=== PATIENT | male | born 1970 | race Caucasian/White ===

== ENCOUNTER → 2016-10-18 | Outpatient (CLI) | payer OTHER ==
[~2016-10-18] VITALS: Ht 175.3 cm; Wt 99.5 kg
[~2016-10-18] MED LIST: ALPR0.5T7; ASPI-586 PO; ATOR40TA PO; CEPH500C PO; COLE1TAB; DIAZ5TAB3; DIAZ5TAB3 PO; DULO30CA3 PO; FAMO-119 PO; GABA-488; GABA-488 PO; HYDR-3812 PO; LISI10TA2 PO; METO-310 PO; METO-451 PO; METO50TA2; NITR0.4T; NITR0.4T SL; ONDN4T PO; OXYC-465; PANT40TA2 PO; PANT40TA3; SUCR1TAB36 PO; TEMA30CA
[2016-10-18 11:55] VITALS: BP 139/98
== END ==
LOC: PREOP 11:31
PROVIDERS: ATTEND Podiatrist Foot & Ankle Surgery
DX: Z01.818 Encounter for other preprocedural examination (principal); Z11.2 Encounter for screening for other bacterial diseases; M20.11 Hallux valgus (acquired), right foot
CPT/HCPCS: 87081

== ENCOUNTER 2016-10-26 11:08 | Day surgery (SDC) | payer OTHER ==
--- NOTE | 2016-10-18 14:48 | HISTORY AND PHYSICAL ---
DICTATING PHYSICIAN: Dr. Villegas DATE OF ADMISSION: 10/26/2016 CHIEF COMPLAINT: To have right foot surgery for right bunion - hurts me, by Dr. Bains. The bunion has been getting bigger and bigger. ALLERGIC TO MEDICATIONS: 1. COMPAZINE 2. ANSAID. SURGERIES: 1. The patient has history of one kidney. 2. Appendectomy. 3. Gallbladder. 4. Left knee meniscus. 5. Right nephrectomy. 6. Three stents. 7. Two heart caths. FAMILY HISTORY: Mother and brother diabetes in, mom colon cancer. Dad had heart attack. REVIEW OF SYSTEMS: HEAD: Denies headache, dizziness, fainting. EYES, EARS, NOSE AND THROAT: Denies diplopia, tinnitus, sore throat. RESPIRATORY: Feel much better, getting over a cold. Denies asthma, TB, coughing, congestion, smoking or wheezing. HEART: No heart problems, heart murmurs or chest pain. History of elevated blood pressure and hypertension. GASTROINTESTINAL: Appetite okay. Denies blood in stools, diarrhea, constipation, ulcer, vomiting. GENITOURINARY: Denies blood, pain, frequency. PHYSICAL EXAMINATION: The patient is a white male, well-nourished, well-developed, in no acute respiratory distress at rest. The patient will have surgery a week from Saturday EARS: Not inflamed. EYES: No conjunctivitis or icterus. THROAT: Not inflamed. NECK: Thyroid not enlarged. No abnormal cervical lymphadenopathy noted. HEART: Regular rate and rhythm. LUNGS: Minimal congestion. ABDOMEN: Soft. Liver and spleen nonpalpable. EXTREMITIES: No pretibial edema. Good dorsalis pedis pulses. PLAN: The patient okay to have surgery. We will be on standby if has any problems. Job ID: [id number] Dictated Date: 10/18/2016 14:11:14 Petrophysicist Date: 10/18/2016 14:42:17/eli
[~2016-10-26] VITALS: Ht 175.3 cm; Wt 99.5 kg
[~2016-10-26 11:08] MED LIST changes: -CEPH500C PO; -HYDR-3812 PO
[2016-10-26] MEDS: LACTATED RINGERS 1,000 ML IV PRN ×2 (11:30→13:40)
[2016-10-26] MEDS ORDERED: ceFAZolin 1 GM/NS 50 ML IVPB IV ONE ×2 (11:30)
--- NOTE | 2016-10-26 11:35 | Physical Therapy Progress Note ---
Therapy Progress Note Per patient report, he used crutches last year for another surgery and is knowledgeable with use. PT issued crutches and patient verbally gave PT all the instructions on step negotiation, NWB right LE gait sequence and to not rest weight through axillary region with crutches. RN was present. No skilled PT indicated at this time. 1 visit WILLY SPRINGER PT Oct 26, 2016 11:35
[2016-10-26] MEDS ORDERED: ONDANSETRON 4 MG/2 ML (SDV) Z0FRAN ONE ×2 (11:53→12:04)
[2016-10-26] MEDS ORDERED: FAMOTIDINE 20MG/2ML IV (PEPCID) ONE (11:53)
[2016-10-26] MEDS ORDERED: proPOfol 200 MG/20 ML (DIPRIVAN) VIAL IV ONE (12:04)
[2016-10-26] MEDS ORDERED: MIDAZOLAM 2 MG/2 ML (VERSED) VIAL ONE (12:04)
[2016-10-26] MEDS ORDERED: LACTATED RINGERS 1,000 ML IV ONE ×2 (12:04→13:47)
[2016-10-26] MEDS ORDERED: LIDOCAINE PF 2% 10 ML (XYLOCAINE) AMP ONE (12:04)
[2016-10-26] MEDS ORDERED: LACTATED RINGERS 1,000 ML IV PRN (12:13)
[2016-10-26] MEDS ORDERED: FAMOTIDINE 20MG/2ML IV (PEPCID) IV ONE ×2 (12:15)
[2016-10-26] MEDS ORDERED: ONDANSETRON 4 MG/2 ML (SDV) Z0FRAN IV ONE ×2 (12:15)
[2016-10-26] MEDS ORDERED: SCOPOLAMINE 1.5 MG (TRANSDERM-SCOP) PATCH TOP ONE (12:15)
[2016-10-26 12:25] VITALS: BP 138/101
[2016-10-26] MEDS ORDERED: SUFentanil CITRATE INJ 50MCG/ML 1ML AMP IV ONE (12:28)
--- NOTE | 2016-10-26 12:52 | Progress Note-Pre Operative ---
Pre-Operative Progress Note H&P Reviewed The H&P was reviewed, patient examined and no changes noted. Date H&P Reviewed: Oct 26, 2016 Time H&P Reviewed: 12:51 Pre-Operative Diagnosis: Hallux Valgus right LIA RUSSELL DPM Oct 26, 2016 12:51 pm
[2016-10-26] MEDS ORDERED: BUPIVACAINE 0.5% 30 ML (SENSORCAINE) VIAL ONE (13:12)
[2016-10-26] MEDS ORDERED: DEXAMETHASONE PF 10 MG/ML (DECADRON) VIAL ONE (13:12)
[2016-10-26] MEDS ORDERED: SEVOFLURANE (ULTANE) 15 ML INHAL SOLN ONE (14:10)
--- NOTE | 2016-10-26 14:32 | Progress Note-Post Operative ---
Post-Operative Progess Note Surgeon (s)/Marketing Project Coordinator (s) Surgeon LIA RUSSELL DPM Marketing Project Coordinator: None Pre-Operative Diagnosis Hallux Valgus right Post-Operative Diagnosis Hallux Valgus right Post-Op Procedure Note Date of Procedure: Oct 26, 2016 Name of Procedure Performed: Modified Reese-Milan Bunionectomy, right Description of the Procedure: Correction of Bunion, right Findings of the Procedure Capsulitis right 1st MTPJ, right Anesthesia Type General Estimated blood loss (mL): Minimal Specimen(s) collected/removed None LIA RUSSELL DPM Oct 26, 2016 2:32 pm
[2016-10-26] MEDS ORDERED: CEPH500C PO (14:34)
[2016-10-26] MEDS ORDERED: HYDR-3812 PO (14:34)
--- NOTE | 2016-10-26 14:36 | Discharge Inst-Simple/Standard ---
Discharge Inst-Standard Discharge Medications New, Converted or Re-Newed RX: Call to Patients Pharmacy Patient Instructions/Follow Up Plan of Care/Instructions/FU: Instruction given to patient Activity as Tolerated: No Goal: Return to full activity Discharge Diet: No Restrictions Return to The Hospital For: Excessive pain or bleeding LIA RUSSELL DPM Oct 26, 2016 2:36 pm
[2016-10-26] MEDS ORDERED: LABETALOL HCL 20 MG/4 ML VIAL ONE (14:37)
[2016-10-26] MEDS ORDERED: morphine INJ 10 MG/ML 1ML (SYR OR VIAL) ONE (14:37)
[2016-10-26] MEDS: morphine INJ 10 MG/ML 1ML (SYR OR VIAL) IVP PRN ×2 (14:40→14:48)
[2016-10-26] MEDS: LABETALOL HCL 20 MG/4 ML VIAL IV PRN ×2 (14:42→14:48)
[2016-10-26] MEDS ORDERED: LACTATED RINGERS 1,000 ML IV SCH (14:54)
[2016-10-26] MEDS: HYDROmorphone (DILAUDID) 2 MG/ML VIAL IVP PRN ×2 (14:55→15:05)
[2016-10-26] MEDS ORDERED: HYDROcodone/APAP 5 MG/325 MG (LORTAB) TAB PO PRN (15:00)
[2016-10-26] MEDS ORDERED: ONDANSETRON 4 MG/2 ML (SDV) Z0FRAN IVP PRN ×2 (15:00)
--- NOTE | 2016-10-26 15:16 | Diagnostic Imaging Report ---
INDICATION: Postop right foot followup. Two views of right foot were obtained. No prior studies are available for comparison. FINDINGS: There are changes of prior osteotomy involving the first metatarsal and proximal phalanx of the first digit. There is satisfactory alignment. No unsuspected foreign body is seen. IMPRESSION: Satisfactory postoperative right foot. Dictated by: Dictated on workstation # [id number]
[2016-10-26 15:40] VITALS: BP 136/101
[2016-10-26 16:10] VITALS: BP 153/102
[2016-10-26 16:40] VITALS: BP 142/100
[2016-10-26 16:50] VITALS: BP 142/100
--- NOTE | 2016-10-27 11:56 | OPERATIVE REPORT ---
PROCEDURE PHYSICIAN: LIA RUSSELL DATE OF PROCEDURE: 10/26/2016 SURGEON: Lia Russell DPM. PREOPERATIVE DIAGNOSIS: Hallus abductovalgus metatarsal primus varus, right. POSTOPERATIVE DIAGNOSIS: 1. Hallux abductovalgus, metatarsal primus varus, right. 2. Capsulitis, right first metatarsophalangeal joint. PROCEDURE: Modified Reese Milan bunionectomy, right. WOUND CLASS: Clean. ANESTHESIA: General. HEMOSTASIS: Pneumatic thigh tourniquet at 300 mmHg. INDICATION: This 45-year-old male presents complaining of a painful bunion, right foot. Conservative therapy is met with unsatisfactory results and the patient is agreeable to surgical intervention after risk and complications were discussed at length. No guarantees were extended to the patient and he is willing to proceed. The patient was brought back to the operative table, placed in a secure, supine position. Appropriate timeout was performed. A pneumatic thigh tourniquet was placed on the right lower extremity over several layers of padding. The right foot was then prepped and draped in normal sterile manner. The right leg was then elevated, allowed to exsanguinate after which the tourniquet was inflated to 300 mmHg. Attention was then directed to the dorsal aspect of the right first metatarsophalangeal joint where a 6 cm longitudinal linear incision was created. The incision was deepened in the same plane with great care to identify and retract all vital neurovascular structures. Only necessary blood vessels were cauterized as an revenue accountant. The incision was deepened down to capsule where a longitude capsulotomy was performed. On the underside of the capsule, tissue with some granular tissue villi was noted. This was debrided with a dissecting scissor. When the capsular tissue was reflected this demonstrating a hypertrophic medial eminence of the 1st metatarsal head, which was resected utilizing a power sagittal saw. Next, blunt dissection was carried out into the first intermetatarsal space where a lateral release was performed. The conjoined tendon of the adductor hallucis was released as well as a lateral capsulorrhaphy and release of the fibular sesamoidal ligament. Attention was redirected to the medial aspect of the first metatarsal head where a Chevron type osteotomy was performed at the surgical neck. The capital fragment was translocated from medial to lateral and was fixated in its corrected position utilizing a 0.062 threaded K wire driven from proximal, dorsal to plantar distal across the osteotomy with great care not to penetrate the articular cartilage. The wound was flushed with copious amounts of normal saline. The K wire was cut flush with the dorsal aspect of the first metatarsal. The head of the first metatarsal was further contoured and smoothed with a power sagittal saw and power bur. Attention was then directed to the proximal phalanx of the right hallux where an Milan type osteotomy was performed. The wedge of bone was resected with the base medial and lateral cortices left intact. Two pilot fuel engineer holes were created to the dorsal medial aspect of the osteotomy after the wedge of bone was resected, the gap was closed and correcting the misalignment of the right hallux. The osteotomy was closed in a corrected position with a 28-gauge monofilament wire passing through the pilot fuel engineer hole securing the osteotomy closed. The wound was flushed with copious amounts of normal saline and closure was then performed in layers; deep closure was performed with 3-0 Vicryl, superficial with 4-0 Vicryl, skin closure with 4-0 Prolene in a horizontal mattress type stitch. Postoperative injection consisted of 17 mL of 0.5% Marcaine injected in a local infusion to the surgical sites. Also 10 mg dexamethasone into the first intermetatarsal space adjacent to the metatarsal phalangeal joint. Postoperative dressing consisted of Betadine soaked Adaptic, sterile 4 x 4, sterile Kerlix, all secured with a Coban wrap. The patient tolerated the anesthesia and procedure well and was transported from the operating room to the recovery area with vital with vital signs stable and vascular status intact to all digits of the right foot. He was given postoperative prescription for Keflex and Vicodin as well as postoperative instructions to be nonweightbearing on the right foot with crutches. Will see the patient back in the office on 11/05/2016 at 10:30 a.m. Job ID: [id number] Dictated Date: 10/26/2016 14:44:10 Complaint Inspector Date: 10/27/2016 11:43:43 / eli
--- OUTSIDE RECORDS SUMMARY | 2016-11-29 21:53 | XMS REPORT | Continuity of Care Document ---
Author Author [facility] Organization [facility] Address Unknown Phone Unavailable Allergies Active Description Code Type Severity Reaction Onset Reported/Identified Relationship to Patient Clinical Status Yes ropinirole [id number] Drug Allergy Unknown N/A 03/16/2015 Yes droperidol [id number] Drug Allergy Moderate HYPERACTIVITY, 10/18/2016 Yes NSAIDS (Non-Steroidal Anti-Inflamma [id number] Drug Allergy Moderate KIDNEY FUNCTION 10/18/2016 Yes fentanyl [id number] Drug Allergy Unknown N/A 10/18/2016 Yes prochlorperazine [id number] Drug Allergy Unknown N/A 10/18/2016 Medications Problems Date Dx Coded Attending Type Code Diagnosis Diagnosed By 03/16/2015 LUIS DENISE, AGATHA Vargas Ot 789.09 ABDOMINAL PAIN, OTHER SPECIFIED SITE 03/26/2015 DAISY ARIZA APRN Ot 724.2 LUMBAGO 03/26/2015 DAISY ARIZA INSTRUCTOR [employer] TROLLEY [employer]AXI Ot 789.09 ABDOMINAL PAIN, OTHER SPECIFIED SITE 03/26/2015 DAISY ARIZA INSTRUCTOR [employer] Ot V58.69 OTH MED,LT,CURRENT USE 08/28/2015 EDGAR DENISE, SABRINA Barreto Ot F17.211 NICOTINE DEPENDENCE, CIGARETTES, IN [place] 08/28/2015 EDGAR DENISE, SABRINA Barreto Ot I25.10 ATHSCL HEART DISEASE OF [place] CORONARY 08/28/2015 EDGAR DENISE, SABRINA Barreto Ot K20.9 ESOPHAGITIS, UNSPECIFIED 08/28/2015 SABRINA HERNÁNDEZ MD Ot R07.9 CHEST PAIN, UNSPECIFIED 08/28/2015 EDGAR DENISE, SABRINA Barreto Ot Z90.5 ACQUIRED ABSENCE OF KIDNEY 08/28/2015 EDGAR DENISE, SABRINA Barreto Ot Z98.61 CORONARY ANGIOPLASTY STATUS 10/19/2016 YVONNE MERCADO, LIA Joshi Ot M20.11 HALLUX VALGUS (ACQUIRED), RIGHT FOOT 10/19/2016 YVONNE DPM, LIA Q Ot Z01.818 ENCOUNTER FOR OTHER PREPROCEDURAL EXAMIN 10/19/2016 YVONNE DPM, LIA Q Ot Z11.2 ENCOUNTER FOR SCREENING FOR OTHER BACTER 10/26/2016 YVONNE DPM, LIA Q Ot M20.11 HALLUX VALGUS (ACQUIRED), RIGHT FOOT 10/26/2016 YVONNE DPM, LIA Q Ot Z01.818 ENCOUNTER FOR OTHER PREPROCEDURAL EXAMIN 10/26/2016 YVONNE DPM, LIA Q Ot Z11.2 ENCOUNTER FOR SCREENING FOR OTHER BACTER 10/31/2016 YVONNE DPM, LIA Q Ot M20.11 HALLUX VALGUS (ACQUIRED), RIGHT FOOT 10/31/2016 YVONNE DPM, LIA Q Ot M77.41 METATARSALGIA, RIGHT FOOT Procedures Results Test Result Range Methicillin resistant Staphylococcus aureus (MRSA) screening culture - 12:10 MRSA SCREEN RESULT MRSA ISOLATED NRG Encounters ACCT No. Visit Date/Time Discharge Status Pt. Type Provider Facility Loc./Unit Complaint [id number] 10/26/2016 11:08:00 2016 16:50:00 DIS Outpatient YVONNE DPM, LIA Q [facility] RIGHT HALLUX [id number] 08/28/2015 02:52:00 2015 07:46:00 DIS Emergency EDGAR DENISE, SABRINA Barreto [facility] ER CP [id number] 03/26/2015 18:19:00 2014 20:12:00 DIS Emergency DAISY ARIZA APRN [facility] ER FALL/LFT KIDNEY PAIN/PAIN URIN [id number] 03/16/2015 20:20:00 2014 23:17:00 DIS Emergency LUIS DENISE, AGATHA Vargas [facility] ER L FLANK PAIN [id number] 10/18/2016 11:31:00 ACT Outpatient YVONNE DPM, LIA Q [facility] PREOP RIGHT HALLUX
--- OUTSIDE RECORDS SUMMARY | 2016-11-29 21:53 | XMS REPORT | Continuity of Care Document ---
Author Author [facility] Organization [facility] Address Unknown Phone Unavailable Care Team Providers Care Plumbing Inspector Name Role Phone Self, Referral PCP Unavailable Source Comments Some departments are not documenting in the electronic medical record. If you do not see the information that you expected, contact Release of Information in the Health Information Management department at [phone] for further assistance in locating additional records.[facility] Active Allergies and Adverse Reactions Allergen Noted Date Severity Reactions Comments Droperidol 03/15/2011 SEE COMMENTS "makes me wired" Current Medications Prescription Sig. Disp. Refills Start End Date Status Date tadalafil(+) (CIALIS, Take 20 mg by mouth as Active ADCIRCA) 20 mg tablet Needed. DULoxetine DR (CYMBALTA) Take 60 mg by mouth Active 60 mg capsule daily. pantoprazole DR Take 40 mg by mouth twice Active (PROTONIX) 40 mg tablet daily. nebivolol (BYSTOLIC) 10 Take 10 mg by mouth Active mg tablet daily. Acetaminophen-Caffeine Take 2 Tabs by mouth Active (EXCEDRIN TENSION daily as needed. HEADACHE) 500-65 mg Tab oxyCODone-acetaminophen Take 2 Tabs by mouth Active (PERCOCET; ENDOCET; every 6 hours as needed ROXICET) 5-325 mg tablet Max 12 tabs/day Active Problems Problem Noted Date Tobacco use disorder 11/20/2012 Chest pain 11/20/2012 Overview: 11/20/12: Normal regadenosine thallium Abdominal pain 11/20/2012 GERD (gastroesophageal reflux disease) 11/20/2012 History of nephrectomy, unilateral 11/20/2012 Recurrent pancreatitis (HCC) 11/20/2012 HTN (hypertension) 06/18/2012 Weight loss, abnormal 06/18/2012 Narcolepsy 06/18/2012 Right flank pain 05/05/2012 Overview: History of bilateral UPJO s/p open pyeloplasties in 1981. Recurrent right flank pain followed with serial NM renal scans and CT's. Stable diminished right renal function (24%). Underwent cystoscopy with right ureteroscopy on 03/16/11 with widely patent UPJ noted. Had nephrostomy tube placed which improved his pain. Had nephrectomy for pain on 07/01/12. 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 Last Assessment & Plan: Patient doing well except for periumbilical pain. He did do a bunch of lifting around the time of his pain onset. No hernia or hematoma. Mild discomfort. -- limit activities and lifting -- Percocet Rx given to patient -- F/U 3 weeks for symptom check -- if symptoms persist, he may need imaging with CT scan Immunizations Name Dates Previously Given Next Due FLU VACCINE >3YO 05/20/2012 (Preservative Free) Social History Tobacco Use Types Packs/Day Years Used Date Current Every Day Smoker Cigarettes 0.5 6 Smokeless Tobacco: Never Used Comments: down to 1/2 pack daily from 1 pack daily Alcohol Use Drinks/Week oz/Week Comments No rarely Last Filed Vital Signs Vital Sign Reading Time Taken Blood Pressure 145/101 03/18/2013 11:30 PM CDT Pulse 80 03/18/2013 3:37 PM CDT Temperature 36.9 C (98.4 F) 03/18/2013 3:37 PM CDT Respiratory Rate 14 08/20/2011 10:54 PM SURGERY ASSISTANT Height 1.778 m (5' 10") 11/20/2012 8:02 AM CDT Weight 93.7 kg (206 lb 9.1 oz) 03/18/2013 3:37 PM CDT Body Mass Index 29.64 03/18/2013 3:37 PM CDT Oxygen Saturation 97% 03/18/2013 11:30 PM CDT Plan of Care Health Maintenance Due Date Last Done Comments Physical (Comprehensive) 1977 Exam Pertussis Vaccine 1981 Tetanus Vaccine 12/04/1987 Influenza Vaccine 03/22/2017 05/20/2012 Results from Last 3 Months Not on file
== END 2016-10-26 16:50 | disposition home or self-care (01) ==
LOC: SDC 11:08
PROVIDERS: ATTEND Podiatrist Foot & Ankle Surgery
DX: M20.11 Hallux valgus (acquired), right foot (principal); M77.41 Metatarsalgia, right foot
CPT/HCPCS: 73620

== ENCOUNTER 2017-06-19 09:05 | Outpatient (CLI) | payer OTHER ==
[~2017-06-19] VITALS: Ht 175.3 cm; Wt 101.7 kg
[~2017-06-19 09:05] MED LIST changes: +CEPH500C PO; +HYDR-3812 PO
[2017-06-19] MEDS ORDERED: ALLO300T2 PO (09:21)
[2017-06-19] MEDS ORDERED: OMEP20TA7 PO (09:21)
[2017-06-19] MEDS ORDERED: LIPA1CAP2 PO (09:21)
[2017-06-19 09:23] VITALS: BP 131/98
== END 2017-06-19 10:08 | disposition home or self-care (01) ==
LOC: PREOP 09:05
PROVIDERS: ATTEND Podiatrist Foot & Ankle Surgery
DX: Z01.818 Encounter for other preprocedural examination (principal); Z11.2 Encounter for screening for other bacterial diseases; M20.12 Hallux valgus (acquired), left foot
CPT/HCPCS: 87081

== ENCOUNTER 2017-07-01 09:19 | Day surgery (SDC) | payer OTHER ==
[~2017-07-01] VITALS: Ht 175.3 cm; Wt 101.7 kg
[2017-07-01 09:18] VITALS: BP 124/102
[~2017-07-01 09:19] MED LIST changes: +ALLO300T2 PO; +LIPA1CAP2 PO; +METO50TA15; -METO50TA2; +OMEP20TA7 PO
[2017-07-01] MEDS ORDERED: BUPIVACAINE 0.5% 30 ML (SENSORCAINE) VIAL ONE (09:21)
[2017-07-01] MEDS ORDERED: DEXAMETHASONE 10 MG/ML (DECADRON) 1 ML VIAL ONE ×2 (09:21→10:28)
--- NOTE | 2017-07-01 09:35 | Progress Note-Pre Operative ---
Pre-Operative Progress Note H&P Reviewed The H&P was reviewed, patient examined and no changes noted. Date Seen by Provider: Jul 01, 2017 Time Seen by Provider: 09:34 Date H&P Reviewed: Jul 01, 2017 Time H&P Reviewed: 09:34 Pre-Operative Diagnosis: Hallux Valgus left ILA RUSSELL DPM Jul 01, 2017 9:34 am
[2017-07-01] MEDS ORDERED: NS (IVPB) 50 ML ONE (09:41)
[2017-07-01] MEDS ORDERED: ceFAZolin 1,000 MG (ANCEF) VIAL ONE (09:41)
[2017-07-01] MEDS ORDERED: ceFAZolin 1 GM/NS 50 ML IVPB IV ONE ×2 (09:45)
[2017-07-01] MEDS ORDERED: CATHETER FLUSH 10 ML SYR IV PRN (09:45)
[2017-07-01] MEDS: LACTATED RINGERS 1,000 ML IV PRN ×2 (09:45→10:36)
[2017-07-01] MEDS ORDERED: MIDAZOLAM 2 MG/2 ML (VERSED) VIAL ONE (09:56)
[2017-07-01] MEDS ORDERED: fentaNYL INJECTION 100 MCG/2 ML AMP ONE (09:56)
[2017-07-01] MEDS ORDERED: FAMOTIDINE 20MG/2ML IV (PEPCID) IV ONE (10:00)
[2017-07-01] MEDS ORDERED: LIDOCAINE PF 2% 5 ML (XYLOCAINE) VIAL ONE (10:28)
[2017-07-01] MEDS ORDERED: ESMOLOL 100 MG/10 ML (BREVIBLOC) VIAL ONE (10:28)
[2017-07-01] MEDS ORDERED: proPOfol 200 MG/20 ML (DIPRIVAN) VIAL IV ONE (10:28)
[2017-07-01] MEDS ORDERED: SEVOFLURANE (ULTANE) 15 ML INHAL SOLN ONE (10:28)
[2017-07-01] MEDS ORDERED: ONDANSETRON 4 MG/2 ML (SDV) Z0FRAN ONE (10:28)
[2017-07-01] MEDS ORDERED: LACTATED RINGERS 1,000 ML IV SCH (11:13)
--- NOTE | 2017-07-01 11:13 | Progress Note-Post Operative ---
Post-Operative Progess Note Surgeon (s)/Dialysis Rn (s) Surgeon LIA RUSSELL DPM Dialysis Rn: none Pre-Operative Diagnosis Hallux Valgus left Post-Operative Diagnosis Same Procedure & Operative Findings Date of Procedure 07/01/17 Procedure Performed/Findings Reese-Milan type bunionectomy, left Anesthesia Type General Estimated Blood Loss Estimated blood loss (mL): Minimal Specimens/Packing Specimens Removed None LIA RUSSELL DPM Jul 01, 2017 11:13 am
[2017-07-01] MEDS ORDERED: HYDROcodone/APAP 5 MG/325 MG (LORTAB) TAB PO PRN (11:15)
[2017-07-01] MEDS ORDERED: HYDR-3812 PO (11:16)
[2017-07-01] MEDS ORDERED: CEPH500C PO (11:16)
[2017-07-01] MEDS: morphine INJ 10 MG/ML 1ML (SYR OR VIAL) IVP PRN ×2 (11:30→11:38)
[2017-07-01] MEDS ORDERED: ONDANSETRON 4 MG/2 ML (SDV) Z0FRAN IVP PRN (11:30)
[2017-07-01 12:10] VITALS: BP 128/95
[2017-07-01 12:40] VITALS: BP 135/100
[2017-07-01 13:10] VITALS: BP 120/93
[2017-07-01 13:18] VITALS: BP 120/93
--- NOTE | 2017-07-01 14:12 | Diagnostic Imaging Report ---
INDICATION: Postop foot surgery. COMPARISON: None. FINDINGS: Frontal and lateral radiographic views of the left foot were obtained. Postsurgical changes of recent hallux valgus deformity correction surgery are noted. Osteotomy defect of the distal first talus is noted. Metallic pin is present. Postsurgical changes of the first proximal phalanx are also noted. No unexpected radiopaque foreign bodies are seen. There is soft tissue swelling and soft tissue emphysema. No unexpected acute osseous fracture or dislocation is identified. IMPRESSION: Postsurgical changes of the left foot as described above. No unexpected radiopaque foreign bodies are seen. Dictated by: Dictated on workstation # [id number]
--- NOTE | 2017-07-01 15:01 | OPERATIVE REPORT ---
DATE OF SERVICE: SURGEON: Keerthi Bains DPM. PREOPERATIVE DIAGNOSES: Hallux abductovalgus with metatarsal primus varus, left. POSTOPERATIVE DIAGNOSES: Hallux abductovalgus with metatarsal primus varus, left. PROCEDURE: Modified Reese-Milan bunionectomy, left. WOUND CLASS: Clean. ANESTHESIA: General. HEMOSTASIS: Pneumatic thigh tourniquet at 300 mmHg. INDICATION: This 46-year-old male presents complaining of a painful bunion, left foot. Conservative therapy has met with unsatisfactory results and the patient is agreeable to surgical intervention after risks and complications were discussed at length. No guarantees were extended to the patient. Perioperative course was discussed at length and he is willing to proceed. PROCEDURE: The patient was brought back to the operative table, placed in a secure supine position. Appropriate timeout was performed. General anesthetic was then induced. Pneumatic thigh tourniquet was placed in the left lower extremity over several layers of padding. The left foot was then prepped and draped in the normal sterile manner. The left foot was then elevated and allowed to exsanguinate after which the tourniquet was inflated to 300 mmHg. Attention was then directed to the dorsal aspect of the left first metatarsophalangeal joint where a 6 cm longitudinal linear incision was created. The incision was deepened in same plane with great care to identify and retract all vital neurovascular structures. All necessary blood vessels were cauterized as encountered. The incision was deepened down to the capsular tissue where a longitudinal capsulotomy was performed. The capsule tissue was reflected mediolaterally exposing the hypertrophic medial eminence to the first metatarsal head, which was resected utilizing a power sagittal saw. Blunt dissection was carried out to the lateral aspect of the left first metatarsophalangeal joint where a lateral release was performed. This included the release of the conjoint tendon of the adductor hallucis, a lateral capsulorrhaphy as well as a release of the fibular sesamoid ligament. The hallux was then forcibly adducted releasing any additional fibers holding it in its abnormal position. Attention was redirected to the medial aspect of the first metatarsal head where a Chevron-type osteotomy was performed allowing the capital fragment to translocate laterally and was fixated in its corrected position with a 0.062 threaded K-wire driven from dorsal proximal to plantar distal with great care not to penetrate the articular cartilage. Excellent bony apposition and fixation was appreciated at this time. The K-wire was cut flush with the dorsal aspect of the first metatarsal. The head of the first metatarsal was further contoured and smoothed with power sagittal saw and power bur. Attention was then directed to the diaphysis of the left hallux proximal phalanx where subperiosteal dissection was carried out. A wedge of bone was then resected with a power sagittal saw with the lateral cortices held intact and the base medial. This allowed improved alignment of the digit once the wedge was removed to close the angulation of the left hallux. Two jet pilot holes were created at the dorsal medial aspect of the osteotomy allowing a 28-gauge monofilament wire to pass through these jet pilot holes securing the osteotomy in a closed position. The wound was flushed with copious amounts of normal saline throughout the procedure. Excellent bony apposition and alignment was now appreciated as well as excellent range of motion of the left first metatarsophalangeal joint without crepitation. The wound was flushed with copious amounts of normal saline and closure was then performed in layers. Deep closure was performed with 3-0 Vicryl, superficial with 4-0 Vicryl, skin closure with 4-0 Prolene in a horizontal mattress type stitch. A postoperative injection consisted of 20 mL of 0.5% Marcaine injected in a Card block. The injection also included 10 mg dexamethasone to the first metatarsophalangeal joint area. Postoperative dressing consisted of Betadine soaked Adaptic, sterile 4 x 4, sterile Kerlix all secured with a Coban wrap. The patient tolerated the anesthesia and procedure well, was transported from the operating room to the recovery area with vital signs stable and vascular status intact to all digits of the left foot. Postoperative instructions were dispensed to the patient as well as prescription for Keflex and Vicodin. He is to be nonweightbearing on the left foot. This will extend for approximately 4 weeks period time. We will see him in the office in 10 days or sooner if necessary. Job ID: [id number] DocumentID: [id number] Dictated Date: 07/01/2017 11:22:28 Final Block Press Operator Date: 07/01/2017 15:00:40 Dictated By: ROGELIO JENKINS
== END 2017-07-01 13:18 | disposition home or self-care (01) ==
LOC: SDC 09:19
PROVIDERS: ATTEND Podiatrist Foot & Ankle Surgery
DX: M20.12 Hallux valgus (acquired), left foot (principal); I10 Essential (primary) hypertension; I25.10 Atherosclerotic heart disease of native coronary artery without angina pectoris; E78.5 Hyperlipidemia, unspecified; G47.33 Obstructive sleep apnea (adult) (pediatric); Z86.73 Personal history of transient ischemic attack (TIA), and cerebral infarction without residual deficits; K21.9 Gastro-esophageal reflux disease without esophagitis; Z90.5 Acquired absence of kidney; Z79.899 Other long term (current) drug therapy; Z79.82 Long term (current) use of aspirin; Z88.6 Allergy status to analgesic agent; Z88.5 Allergy status to narcotic agent; Z88.8 Allergy status to other drugs, medicaments and biological substances
CPT/HCPCS: 73620

== ENCOUNTER → 2018-10-24 | Outpatient (CLI) | payer BC ==
[~2018-10-24] MED LIST changes: +ACHD5005 PO; -HYDR-3812 PO
--- NOTE | 2018-10-24 11:54 | Diagnostic Imaging Report ---
INDICATION: Right forearm injury. TIME OF EXAM: 11:39 a.m. FINDINGS: Two views of the right forearm were obtained. Alignment at the elbow and wrist appears normal. The radius and ulna appear intact. No fractures are seen. The soft tissues are unremarkable. IMPRESSION: No acute bony abnormality is detected. Dictated by: Dictated on workstation # [id number]
--- NOTE | 2018-10-24 11:58 | Diagnostic Imaging Report ---
INDICATION: Right wrist injury. TIME OF EXAM: 11:40 a.m. FINDINGS: Three views of the right wrist were obtained. Distal radius and ulna are intact. Carpus appears intact. No fracture is seen. Visualized metacarpals are unremarkable. IMPRESSION: No acute bony abnormality is detected. Dictated by: Dictated on workstation # [id number]
== END ==
LOC: RAD FS 11:17
PROVIDERS: ATTEND Nurse Practitioner Family
DX: S69.91XA Unspecified injury of right wrist, hand and finger(s), initial encounter (principal); S59.911A Unspecified injury of right forearm, initial encounter
CPT/HCPCS: 73090; 73110

== ENCOUNTER 2018-10-27 17:10 | Emergency (ER) | payer BC ==
[~2018-10-27] VITALS: Ht 175.3 cm; Wt 78.5 kg
--- OUTSIDE RECORDS SUMMARY | 2018-10-27 17:19 | XMS REPORT ---
Author Author [facility]ZA [facility] [place] [facility] Address [address] [place] [address] Care Team Providers Care Eligibility Consultant Name Role Phone CAREY CARRANZA Unavailable PROBLEMS Type Condition ICD9-CM Code [id number] Code Onset Dates Condition Status SNOMED Code Problem Non-STEMI (non-ST elevated myocardial infarction) 410.70 Mar, 0 12624041 Problem Nausea with vomiting R11.2 16 Dec, 2011 0 10442300 Problem Hydronephrosis, left 591 Oct, 0 27905330 Problem Testosterone deficiency 259.9 17 Aug, 2014 0 20791872 Problem Acute pancreatitis K85.90 Oct, 0 157897621 Problem Acute pancreatitis, unspecified complication status, unspecified pancreatitis type K85.90 Active 467428175 Problem Sprain of medial collateral ligament of left knee S83.412A Oct 0 85320220 Problem Single kidney Z90.5 Active 161162204 Problem Sprain of medial collateral ligament of left knee 844.1 Oct, 0 05361343 Problem Sprain of tibiofibular ligament of left ankle S93.432A Oct, 0 44390151499327201 Problem Sprain of tibiofibular ligament of left ankle 845.03 Oct, 0 55977643655736033 Problem Recurrent pancreatitis K86.1 May, 0 621989471 Problem Recurrent pancreatitis 577.1 May, 0 294151147 Problem Right upper quadrant pain 789.01 Dec, 0 051834673 Problem Left flank pain 789.09 Feb, 0 373303395 Problem Kidney stones 592.0 16 Dec, 2011 0 58874742 Problem Nephrolithiasis 592.0 Oct, 0 02125939 Problem Tobacco use 305.1 Jun, 0 098365996 Problem Chest pain 786.50 Aug, 0 30509915 Problem Bunion, left foot M21.612 Jun, 0 821822851 Problem Testosterone deficiency E34.9 17 Aug, 2014 0 97562000 Problem Hyperventilation R06.4 Aug, 0 53983266 Problem Right upper quadrant pain R10.11 Dec, 0 538168826 Problem Hallux rigidus, right foot M20.21 November, 0 2606886 Problem Fever 780.60 16 Dec, 2011 0 607378167 Problem Nausea with vomiting 787.01 Dec, 0 24244102 Problem Abdominal pain, epigastric 789.06 Aug, 0 78079889 Problem Acute pancreatitis 577.0 Oct, 0 176557840 Problem Hyperventilation 786.01 Aug, 0 45793233 Problem Hydronephrosis, left N13.30 Oct, 0 58907694 Problem Non-STEMI (non-ST elevated myocardial infarction) I21.4 Mar, 0 317275872 Problem URI (upper respiratory infection) 465.9 Sep, 0 95446686 Problem HTN (hypertension) 401.9 Feb, 0 73250033 Problem GERD (gastroesophageal reflux disease) 530.81 10 Jan, 2015 0 936020518 Problem Anxiety 300.00 Feb, 0 16396258 Problem Chest pain R07.9 Aug, 0 75039561 Problem URI (upper respiratory infection) J06.9 Sep, 0 28527799 Problem GERD (gastroesophageal reflux disease) K21.9 10 Jan, 2015 0 340687859 Problem HTN (hypertension) I10 Feb, 0 03582531 Problem Tobacco use Z72.0 Jun, 0 168543679 Problem Old complete tear of anterior cruciate ligament of left knee M23.52 Oct, 0 Problem Anxiety F41.9 Feb, 0 72133207 Problem Old complete tear of anterior cruciate ligament of left knee 717.83 Oct, 0 799116143 Problem History of [place] (myocardial infarction) I25.2 Active 560357025 Problem Sprain of lateral collateral ligament of left knee S83.422A Oct, 0 00781750 Problem Generalized abdominal pain R10.84 Active 286178814 Problem Sprain of lateral collateral ligament of left knee 844.0 Oct, 0 40640764 Problem Essential hypertension I10 Active 49760293 Problem Nephrolithiasis N20.0 Active 84656925 Problem Urinary frequency R35.0 Active 598175486 Problem Dizziness R42 Active 668271403 Problem Abdominal pain, epigastric R10.13 Aug, 0 34445125 Problem Status post myocardial infarction I25.2 05 Jun, 2017 0 2713951 Problem Dizziness R42 Active 247725862 Problem Left flank pain R10.9 05 Feb, 2013 0 135979707 Problem Fever R50.9 16 Dec, 2011 0 345728767 Problem Bunion, left foot 727.1 05 Jun, 2017 0 598983801 Problem Kidney stones N20.0 16 Dec, 2011 0 75985157 Problem Hallux rigidus, right foot 735.2 November, 0 6455863 Problem Urinary urgency R39.15 Active 56078145 Problem TFCC (triangular fibrocartilage complex) injury 718.03 Jan, 0 548456503 Problem Weight loss R63.4 Active 26322454 Problem Status post myocardial infarction 412 05 Jun, 2017 0 8162011 Problem Fluid level behind tympanic membrane of both ears H65.93 Active 700665007 Problem Chronic fatigue R53.82 Active 53304776 Problem TFCC (triangular fibrocartilage complex) injury S69.80XA Jan, 0 ALLERGIES No Information ENCOUNTERS Encounter Location Date [facility] [address] [address] 16 Sep, 2018 [facility] [address] [address] 14 Sep, 2018 [facility] [address] [address] Sep, [facility] [address] [address] Sep, [facility] [address] [address] Sep, [facility] [address] [address] Sep, [facility] [address] [address] Sep, [facility] [address] [address] Aug, [facility] [address] [address] Aug, Dizziness R42 ; Urinary urgency R39.15 ; Chronic fatigue R53.82 ; Fluid level behind tympanic membrane of both ears H65.93 ; Weight loss R63.4 and Urinary frequency R35.0 [facility] [address] [address] Aug, [address] [address] Aug, [address] [address] Aug, Dysuria R30.0 ; Dehydration E86.0 ; Diarrhea, unspecified type R19.7 ; Acute prostatitis N41.0 and Non-intractable vomiting with nausea, unspecified vomiting type R11.2 [facility] [address] [address] Aug, [address] [address] Aug, [facility] [address] [facility] [id number] [place] [address] Aug, [address] [address] Aug, Thyroid disorder E07.9 ; Nausea R11.0 and Tremor R25.1 [facility] [address] [address] Aug, [address] [address] Aug, [address] [address] Aug, Low TSH level R79.89 and Contusion of right clavicle, initial encounter S40.011A [facility] [address] [address] 04 Aug, 2018 [facility] [address] [place] [address] Aug, [facility] [id number] [address] Jul, [facility] [address] [address] Jul, [facility] [address] [address] Jun, [facility] [address] [place] [address] Jun, [facility] [address] [address] Jun, [facility] [address] [address] Jun, [facility] [address] [address] Jun, [facility] [address] [address] Jun, [facility] [address] [address] Jun, [facility] [address] [address] Jun, [facility] [id number] [address] May, IMMUNIZATIONS No Known Immunizations SOCIAL HISTORY Never Assessed REASON FOR VISIT headache PLAN OF CARE VITAL SIGNS MEDICATIONS Unknown Medications RESULTS No Results PROCEDURES No Known procedures INSTRUCTIONS MEDICATIONS ADMINISTERED No Known Medications MEDICAL (GENERAL) HISTORY Type Description Date Medical History Hydronephrosis, left Medical History Testosterone Deficiency Medical History GERD Medical History hypertension Medical History anxiety Medical History nephrolithiasis, left Medical History pancreatitis Medical History Non-STEMI Surgical History colonoscopy 02/10/2015, 03/16/2015 Surgical History EGD 2017 Surgical History right nephrectomy Surgical History cholecystectomy
--- OUTSIDE RECORDS SUMMARY | 2018-10-27 17:19 | XMS REPORT | Clinical Summary ---
Author Author [facility] Organization [facility] Address Unknown Phone Unavailable Care Team Providers Care Die Cast Engineer Name Role Phone PCP Unavailable Allergies Not on File Current Medications Not on file Active Problems Not on file Social History Tobacco Use Types Packs/Day Years Used Date Never Assessed Sex Assigned at Date Recorded Not on file Last Filed Vital Signs Not on file Plan of Treatment Not on file Results Not on filefrom Last 3 Months
--- OUTSIDE RECORDS SUMMARY | 2018-10-27 17:19 | XMS REPORT | Clinical Summary ---
Author Author [facility] Organization [facility] Address Unknown Phone Unavailable Care Team Providers Care Retail Advertising Account Executive Name Role Phone Maco Snider MD Unavailable Virgilio Alaniz MD Unavailable Toshia Cheng RN Unavailable Unavailable Chanel Lanza RN Unavailable Unavailable Ivana Sanchez RN Unavailable Unavailable Dada Bob MD Unavailable Unavailable Verona Corea RN Unavailable Unavailable Reji Ferris MD Unavailable Alden Romero PA-C Unavailable Self, Referral PCP Unavailable Charmaine Bowen MD Unavailable Shorty Adler RN Unavailable Unavailable Source Comments Some departments are not documenting in the electronic medical record. If you do not see the information that you expected, contact Release of Information in the Health Information Management department at [phone] for further assistance in locating additional records.[facility] Allergies Comments Active Allergy Reactions Severity Noted Date "makes me wired" Droperidol SEE COMMENTS 03/15/2011 Medications End Date Status Medication Sig Dispensed Refills Start Date Active tadalafil(+) (CIALIS, Take 20 mg by 0 ADCIRCA) 20 mg tablet mouth as Needed. Active DULoxetine DR (CYMBALTA) Take 60 mg by 0 60 mg capsule mouth daily. Active pantoprazole DR Take 40 mg by 0 (PROTONIX) 40 mg tablet mouth twice daily. Active nebivolol (BYSTOLIC) 10 Take 10 mg by 0 mg tablet mouth daily. Active Acetaminophen-Caffeine Take 2 Tabs 0 (EXCEDRIN TENSION by mouth HEADACHE) 500-65 mg Tab daily as needed. Active oxyCODone-acetaminophen Take 2 Tabs 0 (PERCOCET; ENDOCET; by mouth ROXICET) 5-325 mg tablet every 6 hours as needed Max 12 tabs/day Active Problems Problem Noted Date Tobacco use disorder 11/20/2012 Chest pain 11/20/2012 Overview: 11/20/12: Normal regadenosine thallium Abdominal pain 11/20/2012 GERD (gastroesophageal reflux disease) 11/20/2012 History of nephrectomy, unilateral 11/20/2012 Recurrent pancreatitis 11/20/2012 HTN (hypertension) 06/18/2012 Weight loss, abnormal [...] Due FLU VACCINE >3YO 05/20/2012 (Preservative Free) Family History Medical History Relation Name Comments Diabetes Brother High Cholesterol Brother Hypertension Brother Stroke Brother Urolithiasis Brother Heart Attack Father Hypertension Father Asthma Mother Cancer Mother Diabetes Mother Hypertension Mother Relation Name Status Comments Brother Father Mother Social History Date Tobacco Use Types Packs/Day Years Used Current Every Day Smoker Cigarettes 0.5 6 Smokeless Tobacco: Never Used Comments: down to 1/2 pack daily from 1 pack daily Alcohol Use Drinks/Week oz/Week Comments No rarely Sex Assigned at Date Recorded Not on file Industry Job Start Date Occupation Not on file Not on file Not on file Travel End Travel History Travel Start No recent travel history available. Last Filed Vital Signs Time Taken Vital Sign Reading 03/18/2013 11:30 PM CDT Blood Pressure 145/101 03/18/2013 3:37 PM CDT Pulse 80 03/18/2013 3:37 PM CDT Temperature 36.9 C (98.4 F) 08/20/2011 10:54 PM TILE MOLDER Respiratory Rate 14 03/18/2013 11:30 PM CDT Oxygen Saturation 97% - Inhaled Oxygen - Concentration 03/18/2013 3:37 PM CDT Weight 93.7 kg (206 lb 9.1 oz) 11/20/2012 8:02 AM CDT Height 177.8 cm (5' 10") 11/20/2012 8:02 AM CDT Body Mass Index 29.64 Plan of Treatment Health Maintenance Due Date Last Done Comments PHYSICAL (COMPREHENSIVE) 1977 EXAM HIV SCREENING 1985 DTAP/TDAP VACCINES ( - 1988 Tdap) INFLUENZA VACCINE 02/19/2019 05/20/2012 Results Not on filefrom Last 3 Months Advance Directives For more information, please contact: [facility] [address] [place] [address] Date Inactivated Comments Code Status Date Activated 11/21/2012 2:46 PM Full Code 11/20/2012 5:17 AM Provider has discussed Code Status Yes w/Patient or Family? 07/04/2012 2:34 PM Full Code 07/01/2012 7:58 PM Provider has discussed Code Status No, more discussion w/Patient or Family? needed 06/19/2012 10:31 PM Full Code 06/18/2012 9:30 PM Provider has discussed Code Status Yes w/Patient or Family? 05/22/2012 5:00 AM Full Code 05/19/2012 2:52 PM Provider has discussed Code Status No, more discussion w/Patient or Family? needed
--- OUTSIDE RECORDS SUMMARY | 2018-10-27 17:19 | XMS REPORT ---
Author Author [facility] [facility] Address [address] [place] [address] Care Team Providers Care Biomedical Engineering Aide Name Role Phone CAREY CARRANZA Unavailable PROBLEMS Type Condition ICD9-CM Code XXP58-AG Code Onset Dates Condition Status SNOMED Code Problem Non-STEMI (non-ST elevated myocardial infarction) 410.70 Mar, 0 86523862 Problem Nausea with vomiting R11.2 16 Dec, 2011 0 65024432 Problem Hydronephrosis, left 591 Oct, 0 64822162 Problem Testosterone deficiency 259.9 17 Aug, 2014 0 91201281 Problem Acute pancreatitis K85.90 Oct, 0 347583128 Problem Acute pancreatitis, unspecified complication status, unspecified pancreatitis type K85.90 Active 256769052 Problem Sprain of medial collateral ligament of left knee S83.412A Oct 0 44839202 Problem Single kidney Z90.5 Active 072710904 Problem Sprain of medial collateral ligament of left knee 844.1 Oct, 0 22732882 Problem Sprain of tibiofibular ligament of left ankle S93.432A Oct, 0 67627537081712100 Problem Sprain of tibiofibular ligament of left ankle 845.03 Oct, 0 51678891228782724 Problem Recurrent pancreatitis K86.1 May, 0 638132806 Problem Recurrent pancreatitis 577.1 May, 0 157253479 Problem Right upper quadrant pain 789.01 Dec, 0 793611954 Problem Left flank pain 789.09 Feb, 0 542422285 Problem Kidney stones 592.0 16 Dec, 2011 0 55460826 Problem Nephrolithiasis 592.0 Oct, 0 90014277 Problem Tobacco use 305.1 Jun, 0 159267389 Problem Chest pain 786.50 Aug, 0 51069493 Problem Bunion, left foot M21.612 Jun, 0 172380031 Problem Testosterone deficiency E34.9 17 Aug, 2014 0 84899561 Problem Hyperventilation R06.4 Aug, 0 21791950 Problem Right upper quadrant pain R10.11 Dec, 0 551170726 Problem Hallux rigidus, right foot M20.21 November, 0 7627183 Problem Fever 780.60 16 Dec, 2011 0 821665779 Problem Nausea with vomiting 787.01 Dec, 0 53288957 Problem Abdominal pain, epigastric 789.06 Aug, 0 84662527 Problem Acute pancreatitis 577.0 Oct, 0 220009625 Problem Hyperventilation 786.01 Aug, 0 82286027 Problem Hydronephrosis, left N13.30 Oct, 0 52136589 Problem Non-STEMI (non-ST elevated myocardial infarction) I21.4 Mar, 0 546027756 Problem URI (upper respiratory infection) 465.9 Sep, 0 67863703 Problem HTN (hypertension) 401.9 Feb, 0 87395321 Problem GERD (gastroesophageal reflux disease) 530.81 10 Jan, 2015 0 442628059 Problem Anxiety 300.00 Feb, 0 50170023 Problem Chest pain R07.9 Aug, 0 97327001 Problem URI (upper respiratory infection) J06.9 Sep, 0 01677625 Problem GERD (gastroesophageal reflux disease) K21.9 10 Jan, 2015 0 252252717 Problem HTN (hypertension) I10 Feb, 0 93557101 Problem Tobacco use Z72.0 Jun, 0 853755592 Problem Old complete tear of anterior cruciate ligament of left knee M23.52 Oct, 0 Problem Anxiety F41.9 Feb, 0 49937709 Problem Old complete tear of anterior cruciate ligament of left knee 717.83 Oct, 0 977365153 Problem History of [place] (myocardial infarction) I25.2 Active 217070780 Problem Sprain of lateral collateral ligament of left knee S83.422A Oct, 0 04570540 Problem Generalized abdominal pain R10.84 Active 900461007 Problem Sprain of lateral collateral ligament of left knee 844.0 Oct, 0 38610497 Problem Essential hypertension I10 Active 10806741 Problem Nephrolithiasis N20.0 Active 28377834 Problem Urinary frequency R35.0 Active 376290191 Problem Dizziness R42 Active 296853255 Problem Abdominal pain, epigastric R10.13 Aug, 0 10003402 Problem Status post myocardial infarction I25.2 05 Jun, 2017 0 7674712 Problem Dizziness R42 Active 627600952 Problem Left flank pain R10.9 05 Feb, 2013 0 468967969 Problem Fever R50.9 16 Dec, 2011 0 078104689 Problem Bunion, left foot 727.1 05 Jun, 2017 0 956246047 Problem Kidney stones N20.0 16 Dec, 2011 0 01299471 Problem Hallux rigidus, right foot 735.2 November, 0 4600324 Problem Urinary urgency R39.15 Active 56898250 Problem TFCC (triangular fibrocartilage complex) injury 718.03 Jan, 0 999076001 Problem Weight loss R63.4 Active 01190572 Problem Status post myocardial infarction 412 05 Jun, 2017 0 3802730 Problem Fluid level behind tympanic membrane of both ears H65.93 Active 522759155 Problem Chronic fatigue R53.82 Active 41769744 Problem TFCC (triangular fibrocartilage complex) injury S69.80XA Jan, 0 ALLERGIES No Information ENCOUNTERS Encounter Location Date [facility] [address] [address] 16 Sep, 2018 [facility] [address] [address] 14 Sep, 2018 [facility] [address] [address] Sep, [facility] [address] [address] Sep, [facility] [address] [address] Sep, [facility] [address] [address] Sep, [facility] [address] [address] Sep, [facility] [address] [address] Aug, [facility] [address] [address] Aug, Dizziness R42 ; Urinary urgency R39.15 ; Chronic fatigue R53.82 ; Fluid level behind tympanic membrane of both ears H65.93 ; Weight loss R63.4 and Urinary frequency R35.0 [facility] [address] [address] Aug, [address] [address] Aug, [address] [address] Aug, Dysuria R30.0 ; Dehydration E86.0 ; Diarrhea, unspecified type R19.7 ; Acute prostatitis N41.0 and Non-intractable vomiting with nausea, unspecified vomiting type R11.2 [facility] [address] [address] Aug, [address] [address] Aug, [facility] [address] [facility] [id number] [place] [address] Aug, [address] [address] Aug, Thyroid disorder E07.9 ; Nausea R11.0 and Tremor R25.1 [facility] [address] [address] Aug, [address] [address] Aug, [address] [address] Aug, Low TSH level R79.89 and Contusion of right clavicle, initial encounter S40.011A [facility] [address] [address] 04 Aug, 2018 [facility] [address] [place] [address] Aug, [facility] [id number] [address] Jul, [facility] [address] [address] Jul, [facility] [address] [address] Jun, [facility] [address] [place] [address] Jun, [facility] [address] [address] Jun, [facility] [address] [address] Jun, [facility] [address] [address] Jun, [facility] [address] [place] [address] Jun, [facility] [address] [address] Jun, [facility] [address] [address] Jun, [facility] [address] [address] May, IMMUNIZATIONS No Known Immunizations SOCIAL HISTORY Never Assessed REASON FOR VISIT dizziness PLAN OF CARE VITAL SIGNS MEDICATIONS Unknown [...]
--- OUTSIDE RECORDS SUMMARY | 2018-10-27 17:20 | XMS REPORT | Continuity of Care Document ---
Author Organization Unknown Address Unknown Allergies Active Description Code Type Severity Reaction Onset Reported/Identified Relationship to Patient Clinical Status Yes ropinirole [id number] Drug Allergy Unknown N/A 03/16/2015 Yes droperidol [id number] Drug Allergy Moderate HYPERACTIVITY, 06/19/2017 Yes NSAIDS (Non-Steroidal Anti-Inflamma [id number] Drug Allergy Moderate KIDNEY FUNCTION 06/19/2017 Yes fentanyl [id number] Drug Allergy Unknown N/A 06/19/2017 Yes prochlorperazine [id number] Drug Allergy Unknown N/A 06/19/2017 Medications There is no data. Problems Date Dx Coded Attending Type Code Diagnosis Diagnosed By 03/16/2015 AGATHA SMITH MD Ot 789.09 ABDOMINAL PAIN, OTHER SPECIFIED SITE 03/26/2015 DAISY ARIZA APRN Ot 724.2 LUMBAGO 03/26/2015 DAISY ARIZA MUD GRINDER Ot 789.09 ABDOMINAL PAIN, OTHER SPECIFIED SITE 03/26/2015 DAISY ARIZA APRN Ot V58.69 OTH MED,LT,CURRENT USE 08/28/2015 EDGAR DENISE, SABRINA Barreto Ot F17.211 NICOTINE DEPENDENCE, CIGARETTES, IN [place] 08/28/2015 SABRINA HERNÁNDEZ MD Ot I25.10 ATHSCL HEART DISEASE OF [place] CORONARY 08/28/2015 SABRINA HERNÁNDEZ MD Ot K20.9 ESOPHAGITIS, UNSPECIFIED 08/28/2015 SABRINA HERNÁNDEZ MD Ot R07.9 CHEST PAIN, UNSPECIFIED 08/28/2015 SABRINA HERNÁNDEZ MD Ot Z90.5 ACQUIRED ABSENCE OF KIDNEY 08/28/2015 SABRINA HERNÁNDEZ MD Ot Z98.61 CORONARY ANGIOPLASTY STATUS 10/19/2016 YVONNE DPLIA Dodd Ot M20.11 HALLUX VALGUS (ACQUIRED), RIGHT FOOT [...] FOOT 10/26/2016 YVONNE DPM, LIA Q Ot M77.41 METATARSALGIA, RIGHT FOOT 10/31/2016 YVONNE DPM, LIA Q Ot M20.11 HALLUX VALGUS (ACQUIRED), RIGHT FOOT 10/31/2016 YVONNE DPM, LIA Q Ot M77.41 METATARSALGIA, RIGHT FOOT 06/19/2017 YVONNE DPM, LIA Q Ot M20.11 HALLUX VALGUS (ACQUIRED), RIGHT FOOT 06/19/2017 YVONNE DPM, LIA Q Ot Z01.818 ENCOUNTER FOR OTHER PREPROCEDURAL EXAMIN 06/19/2017 YVONNE DPM, LIA Q Ot Z11.2 ENCOUNTER FOR SCREENING FOR OTHER BACTER 06/19/2017 YVONNE DPM, LIA Q Ot M20.11 HALLUX VALGUS (ACQUIRED), RIGHT FOOT 06/19/2017 YVONNE DPM, LIA Q Ot Z01.818 ENCOUNTER FOR OTHER PREPROCEDURAL EXAMIN 06/19/2017 YVONNE DPM, LIA Q Ot Z11.2 ENCOUNTER FOR SCREENING FOR OTHER BACTER 07/01/2017 YVONNE DPM, LIA Q Ot M20.11 HALLUX VALGUS (ACQUIRED), RIGHT FOOT 07/01/2017 YVONNE DPM, LIA Q Ot Z01.818 ENCOUNTER FOR OTHER PREPROCEDURAL EXAMIN 07/01/2017 YVONNE DPM, LIA Q Ot Z11.2 ENCOUNTER FOR SCREENING FOR OTHER BACTER 07/01/2017 YVONNE DPM, LIA Q Ot E78.5 HYPERLIPIDEMIA, UNSPECIFIED 07/01/2017 YVONNE DPM, LIA Q Ot G47.33 OBSTRUCTIVE SLEEP APNEA (ADULT) (PEDIATR 07/01/2017 YVONNE DPM, LIA Q Ot I10 ESSENTIAL (PRIMARY) HYPERTENSION 07/01/2017 YVONNE DPM, LIA Q Ot I25.10 ATHSCL HEART DISEASE OF [place] CORONARY 07/01/2017 YVONNE DPM, LIA Q Ot K21.9 GASTRO-ESOPHAGEAL REFLUX DISEASE WITHOUT 07/01/2017 YVONNE DPM, LIA Q Ot M20.12 HALLUX VALGUS (ACQUIRED), LEFT FOOT 07/01/2017 YVONNE DPM, LIA Q Ot Z79.82 CUSTOMER SERVICE SPECIALIST (CURRENT) USE OF ASPIRIN 07/01/2017 YVONNE DPM, LIA Q Ot Z79.899 OTHER MCC (CURRENT) DRUG THERAPY 07/01/2017 YVONNE DPM, LIA Q Ot Z86.73 PRSNL HX OF TIA (TIA), AND CEREB INFRC W 07/01/2017 YVONNE DPM, LIA Q Ot Z88.5 ALLERGY STATUS TO NARCOTIC AGENT STATUS 07/01/2017 YVONNE DPM, LIA Q Ot Z88.6 ALLERGY STATUS TO ANALGESIC AGENT STATUS 07/01/2017 YVONNE DPM, LIA Q Ot Z88.8 ALLERGY STATUS TO OTH DRUG/MEDS/BIOL SUB 07/01/2017 YVONNE DPM, LIA Q Ot Z90.5 ACQUIRED ABSENCE OF KIDNEY 07/02/2017 YVONNE DPM, LIA Q Ot E78.5 HYPERLIPIDEMIA, UNSPECIFIED 07/02/2017 YVONNE DPM, LIA Q Ot G47.33 OBSTRUCTIVE SLEEP APNEA (ADULT) (PEDIATR 07/02/2017 YVONNE DPM, LIA Q Ot I10 ESSENTIAL (PRIMARY) HYPERTENSION 07/02/2017 YVONNE DPM, LIA Q Ot I25.10 ATHSCL HEART DISEASE OF [place] CORONARY 07/02/2017 YVONNE DPM, LIA Q Ot K21.9 GASTRO-ESOPHAGEAL REFLUX DISEASE WITHOUT 07/02/2017 YVONNE DPM, LIA Q Ot M20.12 HALLUX VALGUS (ACQUIRED), LEFT FOOT 07/02/2017 YVONNE DPM, LIA Q Ot Z79.82 MCC (CURRENT) USE OF ASPIRIN 07/02/2017 YVONNE DPM, LIA Q Ot Z79.899 OTHER CUSTOMER SERVICE SPECIALIST (CURRENT) DRUG THERAPY 07/02/2017 YVONNE DPM, LIA Q Ot Z86.73 PRSNL HX OF TIA (TIA), AND CEREB INFRC W 07/02/2017 YVONNE DPM, LIA Q Ot Z88.5 ALLERGY STATUS TO NARCOTIC AGENT STATUS 07/02/2017 YVONNE DPM, LIA Q Ot Z88.6 ALLERGY STATUS TO ANALGESIC AGENT STATUS 07/02/2017 YVONNE DPM, LIA Q Ot Z88.8 ALLERGY STATUS TO OTH DRUG/MEDS/BIOL SUB 07/02/2017 YVONNE DPM, LIA Q Ot Z90.5 ACQUIRED ABSENCE OF KIDNEY 10/24/2018 YVONNE DPM, LIA Q Ot M20.11 HALLUX VALGUS (ACQUIRED), RIGHT FOOT 10/24/2018 YVONNE DPM, LIA Q Ot Z01.818 ENCOUNTER FOR OTHER PREPROCEDURAL EXAMIN 10/24/2018 YVONNE DPM, LIA Q Ot Z11.2 ENCOUNTER FOR SCREENING FOR OTHER BACTER 10/27/2018 CAREY CARRANZA MUD GRINDER Ot S59.911A UNSPECIFIED INJURY OF RIGHT FOREARM, INI 10/27/2018 CAREY CARRANZA MUD GRINDER Ot S69.91XA UNSP INJURY OF RIGHT WRIST, HAND AND FIN Procedures There is no data. Results Test Result Range Methicillin resistant Staphylococcus aureus (MRSA) screening culture - 12:10 MRSA SCREEN RESULT MRSA ISOLATED NRG Methicillin resistant Staphylococcus aureus (MRSA) screening culture - 09:20 MRSA SCREEN RESULT MRSA ISOLATED NRG Encounters ACCT No. Visit Date/Time Discharge Status Pt. Type Provider Facility Loc./Unit Complaint [id number] 07/01/2017 09:19:00 07/01/2017 13:18:00 DIS Outpatient YVONNE DPM, LIA Q Via [facility] HALLUX RIGIDUS [id number] 06/19/2017 09:05:00 06/19/2017 10:08:00 DIS Outpatient YVONNE DPM, LIA Q Via [facility] PREOP HALLUX RIGIDUS [id number] 10/26/2016 11:08:00 10/26/2016 16:50:00 DIS Outpatient YVONNE DPM, LIA Q Via [facility] RIGHT HALLUX [id number] 10/18/2016 11:31:00 10/18/2016 23:59:59 CLS Outpatient YVONNE DPM, LIA Q Via [facility] PREOP RIGHT HALLUX [id number] 08/28/2015 02:52:00 08/28/2015 07:46:00 DIS Emergency EDGAR DENISE, SABRINA Barreto Via [facility] ER CP [id number] 03/26/2015 18:19:00 03/26/2015 20:12:00 DIS Emergency DAISY ARIZA MUD GRINDER Via [facility] ER FALL/LFT KIDNEY PAIN/PAIN URIN [id number] 03/16/2015 20:20:00 03/16/2015 23:17:00 DIS Emergency LUIS DENISE, AGATHA Vargas Via [facility] ER L FLANK PAIN [id number] 10/27/2018 17:12:00 ACT Emergency MARIELLA DENISE, MALIKA Wilson Via [facility] ER FS RT SIDE GROIN PAIN [id number] 10/24/2018 11:17:00 ACT Outpatient CAREY CARRANZA MUD GRINDER Via [facility] RAD FS [id number] [id number] 10/24/2018 10:40:00 ACT Outpatient [id number] 03/27/2015 03:09:07 ACT Document Registration
[2018-10-27] MEDS ORDERED: morphine INJ 10 MG/ML 1ML (SYR OR VIAL) IVP STA ×2 (17:30→20:07)
--- NOTE | 2018-10-27 17:39 | ED GU-Male ---
General Chief Complaint: - Urinary Stated Complaint: RT SIDE GROIN PAIN Source: patient Exam Limitations: no limitations (MALIKA FERNÁNDEZ MD) History of Present Illness Date Seen by Provider: Oct 27, 2018 Time Seen by Provider: 17:34 Initial Comments This 47-year-old white male presents with a complaint of sudden right groin pain 1 hour prior to presentation in the emergency department. The patient stated that the pain began suddenly. He denied associated fever or chill. The patient has had recent prostatitis for which she is scheduled to see Dr. Maldonado this week. In addition the patient's past medical history includes previous swelling of his right testicle. No treatment was employed and the testicle return to normal size. The patient denies urethral discharge. 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 The patient is allergic to fentanyl. (MALIKA FERNÁNDEZ MD) Allergies and Home Medications Allergies Coded Allergies: NSAIDS (Non-Steroidal Anti-Inflamma (Verified Allergy, Intermediate, KIDNEY FUNCTION, 06/19/17) droperidol (Verified Allergy, Intermediate, HYPERACTIVITY, TACHYCARDIA, ) fentanyl (Verified Allergy, Unknown, 06/19/17) prochlorperazine (Verified Allergy, Unknown, 06/19/17) Home Medications Allopurinol 300 Mg Tablet, 300 MG PO DAILY, (Reported) Aspirin 81 Mg Tablet.dr, 81 MG PO DAILY, (Reported) Atorvastatin Calcium 40 Mg Tablet, 40 MG PO HS, (Reported) Cephalexin 500 Mg Capsule, 1 CAP PO TID Prescribed by: LIA RUSSELL on 07/01/171115 Diazepam 5 Mg Tablet, 5 MG PO PRN, (Reported) Duloxetine HCl 30 Mg Capsule.dr, 30 MG PO DAILY, (Reported) Famotidine 20 Mg Tablet, 20 MG PO BID, (Reported) Gabapentin 300 Mg Capsule, 300 MG PO TID, (Reported) Hydrocodone Bit/Acetaminophen 1 Each Tablet, 1-2 TAB PO Q4-6HR PRN for PAIN PRN PAIN Prescribed by: LIA RUSSELL on 07/01/17 111 Hydrocodone Bit/Acetaminophen 1 Tab Tab, 1 EACH PO Q8H PRN for PAIN-SEVERE Prescribed by: TORI PRINGLE on 10/27/182024 Lipase/Protease/Amylase 1 Each Capsule., 1 EACH PO TID, (Reported) Lisinopril 10 Mg Tablet, 10 MG PO DAILY, (Reported) Metoclopramide HCl 10 Mg Tablet, 10 MG PO QID, (Reported) Metoprolol Tartrate 50 Mg Tablet, 50 MG PO DAILY, (Reported) Nitroglycerin 0.4 Mg Tab.subl, 0.4 MG SL PRN, (Reported) Omeprazole 20 Mg Tablet.dr, 20 MG PO DAILY, (Reported) Ondansetron HCl 4 Mg Tab, 4 MG PO PRN, (Reported) Pantoprazole Sodium 40 Mg Tablet.dr, 40 MG PO DAILY, (Reported) Sucralfate 1 Gm Tablet, 1 GM PO QID, (Reported) Patient Home Medication List Home Medication List Reviewed: Yes (MALIKA FERNÁNDEZ MD) Review of Systems Review of Systems Constitutional: No chills, No fever EENTM: No hearing loss Respiratory: No cough Cardiovascular: No chest pain Gastrointestinal: No abdominal pain, No diarrhea, No nausea, No vomiting Genitourinary: denies flank pain; pain (in the right testicle.) Musculoskeletal: no symptoms reported Skin: No rash Psychiatric/Neurological: No Symptoms Reported Endocrine: No Symptoms Reported Hematologic/Lymphatic: No Symptoms Reported (MALIKA FERNÁNDEZ MD) Past Gvczaac-Dhtren-Adismn Hx Past Med/Social Hx: Reviewed Nursing Past Med/Soc Hx (MALIKA FERNÁNDEZ MD) Patient Social History Alcohol Use: Denies Use Recreational Drug Use: No Smoking Status: Current Everyday Smoker Former Smoker, Quit: Oct 18, 2012 Recent Foreign Travel: No Contact w/Someone Who Travel: No Recent Hopitalizations: No Physical Abuse: No Sexual Abuse: No Mistreated: No Fear: No (MALIKA FERNÁNDEZ MD) Seasonal Allergies Seasonal Allergies: Yes (MALIKA FERNÁNDEZ MD) Past Medical History Surgeries: Yes (RIGHT NEPHRECTOMY, LEFT KNEE SCOPE, R WRIST) Appendectomy, Coronary Stent, Gallbladder, Nephrectomy Respiratory: Yes Sleep Apnea Currently Using CPAP: Yes Cardiac: Yes (STENTS X 2, LAST HEART CATH 2014) Coronary Artery Disease, Heart Attack, High Cholesterol, Hypertension Neurological: Yes (TIA X2 LAST ONE 2011) TIA Reproductive Disorders: No Sexually Transmitted Disease: Yes HIV/AIDS: No Kidney Stones Gastrointestinal: Yes Gastroesophageal Reflux, Esophagitis Musculoskeletal: No Endocrine: No Loss of Vision: Bilateral Hearing Impairment: Denies Cancer: No Psychosocial: Yes Anxiety Integumentary: No Blood Disorders: No Adverse Reaction/Blood Tranf: No (N/A) (MALIKA FERNÁNDEZ MD) Family Medical History No Pertinent Family Hx (MALIKA FERNÁNDEZ MD) Physical Exam Vital Signs Vital Signs - First Documented 10/27/18 17:39 Temp 99.0 Pulse 112 Resp 22 B/P (MAP) 147/109 (122) Pulse Ox 100 O2 Delivery Room Air (TORI PRINGLE MD) Vital Signs Capillary Refill : (MALIKA FERNÁNDEZ MD) Height, Weight, BMI Height: 5'9.00" Weight: 224lbs. 3.0oz. [id number]; 33.1 BMI Method:Stated General Appearance: WD/WN, mild distress Neck: normal inspection Cardiovascular: regular rate, rhythm, no murmur Respiratory: lungs clear, normal breath sounds Gastrointestinal: normal bowel sounds, non tender, soft Male: inguinal tenderness (on the right with fullness with Valsalva.), testicular tenderness (to the right testicle which is not swollen or inflamed.) Back: normal inspection Extremities: normal range of motion, normal inspection Neurologic/Psychiatric: no motor/sensory deficits, alert Skin: normal color, warm/dry (MALIKA FERNÁNDEZ MD) Progress/Results/Core Measures Suspected Sepsis SIRS Temperature: Pulse: Respiratory Rate: Blood Pressure / Mean: (MALIKA FERNÁNDEZ MD) Results/Orders Lab Results Laboratory Tests Test 10/27/18 17:50 Range/Units Urine Color YELLOW Urine Clarity CLEAR Urine pH 6.0 5-9 Urine Specific [place] 1.020 1.016-1.022 Urine Protein NEGATIVE NEGATIVE Urine Glucose (UA) NEGATIVE NEGATIVE Urine Ketones NEGATIVE NEGATIVE Urine Nitrite NEGATIVE NEGATIVE Urine Bilirubin NEGATIVE NEGATIVE Urine Urobilinogen 0.2 NORMAL MG/DL Urine Leukocyte Esterase NEGATIVE NEGATIVE Urine RBC (Auto) NEGATIVE NEGATIVE Urine RBC NONE /HPF Urine WBC 0-2 /HPF Urine Squamous Epithelial Cells NONE /HPF Urine Crystals NONE /LPF Urine Bacteria NEGATIVE /HPF Urine Casts NONE /LPF Urine Mucus NEGATIVE /LPF Urine Culture Indicated NO (TORI PRINGLE MD) My Orders Orders - TORI PRINGLE MD Morphine Injection (Morphine Injection (10/27/18 20:07) Rx-Hydrocodone/Apap 5-325 Mg (Rx-Vicodin (10/27/18 20:45) (TORI PRINGLE MD) Medications Given in ED Current Medications Medications Dose Ordered Sig/Ml Route Start Time Stop Time Status Last Admin Dose Admin Acetaminophen/ Hydrocodone Bitart 1 ea Q6H PRN PO 10/27/18 20:45 10/27/18 21:02 DC 10/27/18 20:41 1 EA (TORI PRINGLE MD) Vital Signs/I&O 10/27/18 10/27/18 17:39 20:45 Temp 99.0 98.5 Pulse 112 92 Resp 22 16 B/P (MAP) 147/109 (122) 148/95 (112) Pulse Ox 100 100 O2 Delivery Room Air Room Air (TORI PRINGLE MD) Vital Signs/I&O Capillary Refill : (MALIKA FERNÁNDEZ MD) Progress Note : Time: 20:00 Progress Note I assumed care from Dr. Fernández at shift change and after the ultrasound result was back I reviewed the results with the patient. He was still complaining of pain but the US did not show any evidence of torsion. He had some varicoceles and an epididymal cyst that could be causing some pain for him. Will repeat a pain shot and give a few hydrocodone for his pain. Advise him to call Dr. Maldonado in the morning for follow up and if having worsening symptoms to return to go to Urology sooner. (TORI PRINGLE MD) Diagnostic Imaging Diagonstic Imaging: Ultrasound Plain Films/CT/US/NM/MRI: other (testicle and scrotum) Comments NAME: JOSE J KLINE [facility] REC#: [id number] PT STATUS: REG ER : 1970 PHYSICIAN: MALIKA FERNÁNDEZ MD ADMIT DATE: 10/27/18/ER FS Signed Date of Exam:10/27/18 US SCROTUM (TESTICLE) [id number] INDICATION: Right scrotal pain. FINDINGS: Color Doppler blood flow to the testicles bilaterally is normal. There is no testicular mass. No evidence for torsion or orchitis. There is a tiny incidental left epididymal head cyst, simple and benign, 5 mm. Small bilateral varicoceles inferiorly within the scrotum are present. No hernia. No evidence for epididymitis. IMPRESSION: Tiny left epididymal head cyst. Small varicoceles. No evidence for torsion, orchitis, or epididymitis. Dictated by: Dictated on workstation # [id number] Dict: 10/27/181902 Trans: 10/27/181921 [id number] Interpreted by: MARVIN MOORE Electronically signed by: MARVIN MOORE 10/27/181921 Reviewed: Other (reviewed radiology report) (TORI PRINGLE MD) Departure Impression Primary Impression: Epididymal cyst Additional Impression: Testicle pain Disposition: HOME, SELF-CARE Condition: Stable Departure-Patient Inst. Decision time for Depature: 20:22 (TORI PRINGLE MD) Referrals: [facility] [place] Primary Care Physician CAREY CARRANZA APRN (Family) Primary Care Physician EMIGDIO MALDONADO MD Patient Instructions: Testicular Injury Add. Discharge Instructions: Use ice 15-20 minutes every few hours to help with pain. Try wearing supportive underwear and elevating your scrotum and testicles to help with pain Check with Dr. Maldonado or Urology for continued pain and problems. Call in the morning if not improving All discharge instructions reviewed with patient and/or family. Voiced understanding. Scripts Hydrocodone Bit/Acetaminophen (Hydrocodone/Acetaminophen 5/325mg Tablet) 1 Tab Tab 1 EACH PO Q8H PRN for PAIN-SEVERE MDD 10 for 3 Days, #9 TAB 0 Refills Prov: TORI PRINGLE MD 10/27/18 MALIKA FERNÁNDEZ MD Oct 27, 2018 17:39 TORI PRINGLE MD Oct 27, 2018 20:25
[2018-10-27 18:06] LABS: BILIRUBIN,URINE NEGATIVE (NEGATIVE); CLARITY,URINE CLEAR; COLOR,URINE YELLOW; GLUCOSE, URINE (UA) NEGATIVE (NEGATIVE); KETONES,URINE NEGATIVE (NEGATIVE); NITRITE,URINE NEGATIVE (NEGATIVE); PROTEIN,URINE NEGATIVE (NEGATIVE); UROBILINOGEN,URINE 0.2 MG/DL (NORMAL)
[2018-10-27 18:07] LABS: BACTERIA,URINE NEGATIVE /HPF; LEUKOCYTE ESTERASE ,URINE NEGATIVE (NEGATIVE); WBC,URINE 0-2 /HPF
--- NOTE | 2018-10-27 19:07 | Diagnostic Imaging Report ---
INDICATION: Right scrotal pain. FINDINGS: Color Doppler blood flow to the testicles bilaterally is normal. There is no testicular mass. No evidence for torsion or orchitis. There is a tiny incidental left epididymal head cyst, simple and benign, 5 mm. Small bilateral varicoceles inferiorly within the scrotum are present. No hernia. No evidence for epididymitis. IMPRESSION: Tiny left epididymal head cyst. Small varicoceles. No evidence for torsion, orchitis, or epididymitis. Dictated by: Dictated on workstation # [id number]
[2018-10-27] MEDS ORDERED: ACHD5005 PO (20:25)
[2018-10-27 20:45] VITALS: BP 148/95
[2018-10-27] MEDS ORDERED: RX-HYDROCODONE/APAP 5/325 MG #4 TAB PK PO PRN (20:45)
== END 2018-10-27 20:55 | disposition home or self-care (01) ==
LOC: EDUNIT# 17:10 → ER FS 17:12
DX: N50.3 Cyst of epididymis (principal); G47.30 Sleep apnea, unspecified; I25.10 Atherosclerotic heart disease of native coronary artery without angina pectoris; I25.2 Old myocardial infarction; E78.00 Pure hypercholesterolemia, unspecified; I10 Essential (primary) hypertension; K21.0 Gastro-esophageal reflux disease with esophagitis; F41.9 Anxiety disorder, unspecified; Z87.442 Personal history of urinary calculi; Z86.73 Personal history of transient ischemic attack (TIA), and cerebral infarction without residual deficits; Z88.6 Allergy status to analgesic agent; Z79.82 Long term (current) use of aspirin; Z87.891 Personal history of nicotine dependence; Z90.49 Acquired absence of other specified parts of digestive tract; Z95.5 Presence of coronary angioplasty implant and graft; Z90.5 Acquired absence of kidney
CPT/HCPCS: 76870; 81000

== ENCOUNTER → 2018-11-20 | Outpatient (CLI) | payer SELFPAY ==
--- NOTE | 2018-11-20 11:36 | Diagnostic Imaging Report ---
INDICATION: Right knee pain 3 views of the right knee show no fracture, dislocation or other acute abnormalities. IMPRESSION: Negative right knee Dictated by: Dictated on workstation # [id number]
== END ==
LOC: RAD FS 11:14
PROVIDERS: ATTEND Nurse Practitioner Family
DX: M25.561 Pain in right knee (principal)
CPT/HCPCS: 73562

== ENCOUNTER → 2019-04-23 | Outpatient (CLI) | payer SELFPAY ==
--- NOTE | 2019-04-23 14:19 | Diagnostic Imaging Report ---
INDICATION: Right wrist pain. COMPARISON: 10/24/2018. FINDINGS: Three views of the right wrist demonstrate no acute fracture or dislocation. There are no focal osseous lesions. No avascular necrosis is seen. The visualized soft tissue structures are unremarkable. The pronator fat pad is not displaced. There are no radio opaque foreign bodies. IMPRESSION: 1. No acute fracture or dislocation in the right wrist. Dictated by: Dictated on workstation # [id number]
== END ==
LOC: RAD FS 14:08
PROVIDERS: ATTEND Nurse Practitioner
DX: M25.531 Pain in right wrist (principal)
CPT/HCPCS: 73110

== ENCOUNTER 2019-09-14 09:52 | Day surgery (SDC) | payer SELFPAY ==
[~2019-09-14] VITALS: Ht 175.3 cm; Wt 84.2 kg
[2019-09-14] VITALS (8 sets, daily range): BP systolic 114–144; BP diastolic 81–108
[~2019-09-14 09:52] MED LIST changes: -DIAZ5TAB3; -DIAZ5TAB3 PO; +DIAZ5TAB49; +DIAZ5TAB49 PO
[2019-09-14] MEDS ORDERED: morphine INJ 10 MG/ML 1ML (SYR OR VIAL) IVP STA ×2 (10:11→11:19)
[2019-09-14] MEDS ORDERED: NS IV 1000 ML 1,000 ML IV SCH (10:15)
[2019-09-14 10:28] LABS: BASOPHILS % (AUTO) 1 % (0-10); EOSINOPHILS % (AUTO) 1 % (0-10); HEMATOCRIT 42 % (40-54); HEMOGLOBIN 14.3 G/DL (13.3-17.7); LYMPHOCYTES % (AUTO) 23 % (12-44); MEAN CORPUSCULAR HEMOGLOBIN 28 PG (25-34); MEAN CORPUSCULAR HGB CONC 34 G/DL (32-36); MEAN CORPUSCULAR VOLUME 83 FL (80-99); MEAN PLATELET VOLUME 10.7 FL (7.4-10.4); MONOCYTES % (AUTO) 10 % (0-12); NEUTROPHILS # (AUTO) 5.4 X 10^3 (1.8-7.8); NEUTROPHILS % (AUTO) 65 % (42-75); PLATELET COUNT 239 10^3/uL (130-400); RED CELL DISTRIBUTION WIDTH 13.6 % (10.0-14.5); WHITE BLOOD COUNT 8.4 10^3/uL (4.3-11.0)
[2019-09-14 10:29] LABS: BASOPHILS # (AUTO) 0.1 10^3/uL (0.0-0.1); EOSINOPHILS # (AUTO) 0.1 10^3/uL (0.0-0.3); LYMPHOCYTES # (AUTO) 1.9 X 10^3 (1.0-4.0); MONOCYTES # (AUTO) 0.9 X 10^3 (0.0-1.0)
--- NOTE | 2019-09-14 10:37 | ED General ---
General Chief Complaint: Chest Pain Stated Complaint: HEART PALPITATIONS History of Present Illness Date Seen by Provider: Sep 14, 2019 Time Seen by Provider: 10:34 Initial Comments Patient presenting to emergency department for evaluation of chest pain and palpitations that started last night. He said he was not exerting himself and just started at rest and he describes as a tightness in his left parasternal region with no radiation caused him shortness of breath and diaphoresis. He said he fell asleep and he did not have any symptoms this morning but all at work started getting the symptoms again. He said he was not exerting himself rather he was just doing his usual activities. He denies any nausea or vomiting. He says that he used to take blood pressure medications but does not need them any longer. He had a stent placed in 2012 at [place] and another stent placed in 2013 at [facility]. He denies diabetes or high cholesterol but he does smoke cigarettes and his father of a heart attack in his 60s. He says he is having a cough but no fevers chills or production. He is in no obvious distress with normal vital signs other than slight tachycardia and hypertension noted. Allergies and Home Medications Allergies Coded Allergies: NSAIDS (Non-Steroidal Anti-Inflamma (Verified Allergy, Intermediate, KIDNEY FUNCTION, 06/19/17) droperidol (Verified Allergy, Intermediate, HYPERACTIVITY, TACHYCARDIA, 06/19/17) fentanyl (Verified Allergy, Unknown, 06/19/17) prochlorperazine (Verified Allergy, Unknown, 06/19/17) Home Medications Allopurinol 300 Mg Tablet, 300 MG PO DAILY, (Reported) Aspirin 81 Mg Tablet.dr, 81 MG PO DAILY, (Reported) Atorvastatin Calcium 40 Mg Tablet, 40 MG PO HS, (Reported) Cephalexin 500 Mg Capsule, 1 CAP PO TID Prescribed by: LIA RUSSELL on 07/01/17 111 Diazepam 5 Mg Tablet, 5 MG PO PRN, (Reported) Duloxetine HCl 30 Mg Capsule.dr, 30 MG PO DAILY, (Reported) Famotidine 20 Mg Tablet, 20 MG PO BID, (Reported) Gabapentin 300 Mg Capsule, 300 MG PO TID, (Reported) Hydrocodone Bit/Acetaminophen 1 Each Tablet, 1-2 TAB PO Q4-6HR PRN for PAIN PRN PAIN Prescribed by: LIA RUSSELL on 07/01/17 1116 Hydrocodone Bit/Acetaminophen 1 Tab Tab, 1 EACH PO Q8H PRN for PAIN-SEVERE Prescribed by: TORI PRINGLE on 10/27/182024 Lipase/Protease/Amylase 1 Each Capsule.dr, 1 EACH PO TID, (Reported) Lisinopril 10 Mg Tablet, 10 MG PO DAILY, (Reported) Metoclopramide HCl 10 Mg Tablet, 10 MG PO QID, (Reported) Metoprolol Tartrate 50 Mg Tablet, 50 MG PO DAILY, (Reported) Nitroglycerin 0.4 Mg Tab.subl, 0.4 MG SL PRN, (Reported) Omeprazole 20 Mg Tablet.dr, 20 MG PO DAILY, (Reported) Ondansetron HCl 4 Mg Tab, 4 MG PO PRN, (Reported) Pantoprazole Sodium 40 Mg Tablet.dr, 40 MG PO DAILY, (Reported) Sucralfate 1 Gm Tablet, 1 GM PO QID, (Reported) Patient Home Medication List Home Medication List Reviewed: Yes Review of Systems Review of Systems Constitutional: no symptoms reported EENTM: no symptoms reported Respiratory: cough, short of breath Cardiovascular: chest pain Gastrointestinal: no symptoms reported Genitourinary: no symptoms reported Musculoskeletal: no symptoms reported Skin: no symptoms reported Psychiatric/Neurological: No Symptoms Reported All Other Systems Reviewed Negative Unless Noted: Yes Past Fqfodmr-Tfrtnl-Lzavlf Hx Patient Social History Former Smoker, Quit: Oct 18, 2012 Recent Foreign Travel: No Contact w/Someone Who Travel: No Recent Hopitalizations: No Seasonal Allergies Seasonal Allergies: Yes Past Medical History Surgeries: Yes (RIGHT NEPHRECTOMY, LEFT KNEE SCOPE, R WRIST) Appendectomy, Coronary Stent, Gallbladder, Nephrectomy Respiratory: Yes Sleep Apnea Currently Using CPAP: Yes Cardiac: Yes (STENTS X 2, LAST HEART CATH 2014) Coronary Artery Disease, Heart Attack, High Cholesterol, Hypertension Neurological: Yes (TIA X2 LAST ONE 2011) TIA Reproductive Disorders: No Sexually Transmitted Disease: Yes HIV/AIDS: No Kidney Stones Gastrointestinal: Yes Gastroesophageal Reflux, Esophagitis Musculoskeletal: No Endocrine: No Loss of Vision: Bilateral Hearing Impairment: Denies Cancer: No Psychosocial: Yes Anxiety Integumentary: No Blood Disorders: No Adverse Reaction/Blood Tranf: No (N/A) Family Medical History No Pertinent Family Hx Physical Exam Vital Signs Vital Signs - First Documented 09/14/19 10:02 Temp 37.1 Pulse 96 Resp 16 B/P (MAP) 132/93 (106) Pulse Ox 98 Capillary Refill : Height, Weight, BMI Height: 5'9.00" Weight: 173lbs. 0oz. 78.772731fp; 33.1 BMI Method:Stated General Appearance: No Apparent Distress, WD/WN HEENT: PERRL/EOMI Neck: Supple Respiratory: Lungs Clear, No Respiratory Distress Cardiovascular: Normal Peripheral Pulses, Tachycardia Gastrointestinal: Non Tender, Soft Back: Normal Inspection Extremity: Normal Capillary Refill Neurologic/Psychiatric: Alert, Oriented x3 Skin: Warm/Dry Progress/Results/Core Measures Suspected Sepsis SIRS Temperature: Pulse: Respiratory Rate: Laboratory Tests 09/14/19 10:15: White Blood Count 8.4 Blood Pressure / Mean: Laboratory Tests 09/14/19 10:15: Creatinine 1.07, Platelet Count 239, Total Bilirubin 0.3 Results/Orders Lab Results Laboratory Tests Test 09/14/19 10:15 Range/Units White Blood Count 8.4 4.3-11.0 10^3/uL Red Blood Count 5.08 4.35-5.85 10^6/uL Hemoglobin 14.3 13.3-17.7 G/DL Hematocrit 42 40-54 % Mean Corpuscular Volume 83 80-99 FL Mean Corpuscular Hemoglobin 28 25-34 PG Mean Corpuscular Hemoglobin Concent 34 32-36 G/DL Red Cell Distribution Width 13.6 10.0-14.5 % Platelet Count 239 130-400 10^3/uL Mean Platelet Volume 10.7 H 7.4-10.4 FL Neutrophils (%) (Auto) 65 42-75 % Lymphocytes (%) (Auto) 23 12-44 % Monocytes (%) (Auto) 10 0-12 % Eosinophils (%) (Auto) 1 0-10 % Basophils (%) (Auto) 1 0-10 % Neutrophils # (Auto) 5.4 1.8-7.8 X 10^3 Lymphocytes # (Auto) 1.9 1.0-4.0 X 10^3 Monocytes # (Auto) 0.9 0.0-1.0 X 10^3 Eosinophils # (Auto) 0.1 0.0-0.3 10^3/uL Basophils # (Auto) 0.1 0.0-0.1 10^3/uL D-Dimer 1.04 H 0.00-0.49 UG/ML Sodium Level 140 135-145 MMOL/L Potassium Level 4.0 3.6-5.0 MMOL/L Chloride Level 103 98-107 MMOL/L Carbon Dioxide Level 24 21-32 MMOL/L Anion Gap 13 5-14 MMOL/L Blood Urea Nitrogen 12 7-18 MG/DL Creatinine 1.07 0.60-1.30 MG/DL Estimat Glomerular Filtration Rate > 60 BUN/Creatinine Ratio 11 Glucose Level 114 H 70-105 MG/DL Calcium Level 9.4 8.5-10.1 MG/DL Corrected Calcium 9.5 8.5-10.1 MG/DL Magnesium Level 2.0 1.6-2.4 MG/DL Total Bilirubin 0.3 0.1-1.0 MG/DL Aspartate Amino Transf (AST/SGOT) 17 5-34 U/L Alanine Aminotransferase (ALT/SGPT) 25 0-55 U/L Alkaline Phosphatase 67 40-136 U/L Troponin I < 0.30 <0.30 NG/ML Pro-B-Type Natriuretic Peptide 83.1 H <75.0 PG/ML Total Protein 7.6 6.4-8.2 GM/DL Albumin 3.9 3.2-4.5 GM/DL Lipase 56 8-78 U/L My Orders Orders - BRADLY CARDONA DO Cbc With Automated Diff (09/14/19 10:11) Comprehensive Metabolic Panel (09/14/19 10:11) Chest 1 View Ap/Pa Only (09/14/19 10:11) Troponin I Fs (09/14/19 10:11) Probnp Fs (09/14/19 10:11) Magnesium (09/14/19 10:11) Lipase (09/14/19 10:11) Fibrin Degradation Products (09/14/19 10:11) Morphine Injection (Morphine Injection (09/14/19 10:11) Ns Iv 1000 Ml (Sodium Chloride 0.9%) (09/14/19 10:15) Thyroid Stimulating Hormone (09/14/19 10:11) Metoprolol Tartrate (Ir) Tab (Lopressor (09/14/19 11:15) Morphine Injection (Morphine Injection (09/14/19 11:19) Albuterol/Ipra Inhalation Soln (Duoneb I (09/14/19 11:30) Aspirin Chewable Tablet (Baby Aspirin Ch (09/14/19 11:30) Svn Small Volume Nebulizer (09/14/19 11:19) Ct Angio Chest W (09/14/19 11:31) Iohexol Injection (Omnipaque 350 Mg/Ml 1 (09/14/19 11:45) Received Contrast (Hold Metformin- Contr (09/14/19 11:45) Sodium Chloride Flush (Catheter Flush Sy (09/14/19 11:45) Ns (Ivpb) (Sodium Chloride 0.9% Ivpb Bag (09/14/19 11:45) Troponin I Fs (09/14/19 13:12) Ekg Tracing (09/14/19 13:12) Nitroglycerin 0.4 Mg Btl 25's (Nitrostat (09/14/19 13:30) Medications Given in ED Current Medications Medications Dose Ordered Sig/Ml Route Start Time Stop Time Status Last Admin Dose Admin Albuterol/ Ipratropium 3 ml ONCE ONCE INH 09/14/19 11:30 09/14/19 11:31 DC 09/14/19 11:38 3 ML Aspirin 324 mg ONCE ONCE PO 09/14/19 11:30 09/14/19 11:31 DC 09/14/19 11:38 324 MG Iohexol 125 ml ONCE ONCE IV 09/14/19 11:45 09/14/19 11:46 DC 09/14/19 12:04 125 ML Metoprolol Tartrate 25 mg ONCE ONCE PO 09/14/19 11:15 09/14/19 11:16 DC 09/14/19 11:23 25 MG Sodium Chloride 10 ml NEEDED PRN IV 09/14/19 11:45 09/14/19 12:04 10 ML Sodium Chloride 100 ml ONCE ONCE IV 09/14/19 11:45 09/14/19 11:46 DC 09/14/19 12:04 100 ML Vital Signs/I&O 09/14/19 10:02 Temp 37.1 Pulse 96 Resp 16 B/P (MAP) 132/93 (106) Pulse Ox 98 Capillary Refill : Progress Note : Progress Note Patient has cardiac history however his EKG shows no signs of ischemia. I will check labs treat symptoms and reassess. Patient's workup has been unremarkable for the most part including a negative CT angiogram as well as negative troponin however I went to go check on him again at 1315 anticipation that THEY can discharge him after negative second EKG and troponin he says he is having excruciating pressure on the left side of the chest despite the 2 doses of morphine and the albuterol have given him. He also received a full dose aspirin. Given his moderate heart score 5 and intractable chest pain I told patient he should be admitted the hospital and he consented. I spoke to Dr. Bernard of cardiology and he agreed with admit. Rec 300mg plavix and additional dose of 25mg metoprolol. Rec ICU admit. I spoke to Dr. Marcelo and she agreed to accept patient. Departure Impression Primary Impression: Chest pain Qualified Codes: R07.9 - Chest pain, unspecified Disposition: ADMITTED INPATIENT Condition: Stable Transfer Transfer Reason: Exceeds level of care Time Spoke to Accepting Phy: 13:35 Transfer Facility: [facility] Method of Transfer: EMS Departure-Patient Inst. Referrals: [facility]/SHARONDA (PCP) Primary Care Physician CAREY CARRANZA APRN (Family) Primary Care Physician BRADLY CARDONA DO Sep 14, 2019 10:37
--- NOTE | 2019-09-14 10:48 | Diagnostic Imaging Report ---
PATIENT HISTORY: Heart palpitations and chest pain. TECHNIQUE: Single frontal view of the chest. COMPARISON: 08/28/2015 FINDINGS: The lung volumes are normal. No focal consolidation is seen. No large pleural effusion or pneumothorax is seen. The cardiomediastinal silhouette is normal in size and contour. No acute osseous abnormality is seen. IMPRESSION: No acute pulmonary abnormality seen. Dictated by: Dictated on workstation # [id number]
[2019-09-14 10:56] LABS: BILIRUBIN,TOTAL 0.3 MG/DL (0.1-1.0); BUN/CREATININE RATIO 11; CALCIUM 9.4 MG/DL (8.5-10.1); CARBON DIOXIDE 24 MMOL/L (21-32); CHLORIDE 103 MMOL/L (98-107); CREATININE SERUM 1.07 MG/DL (0.60-1.30); GFR ESTIMATED > 60; GLUCOSE 114 MG/DL (70-105); SODIUM 140 MMOL/L (135-145)
[2019-09-14 10:57] LABS: ALANINE AMINOTRANSFERASE 25 U/L (0-55); ALBUMIN 3.9 GM/DL (3.2-4.5); ALKALINE PHOSPHATASE 67 U/L (40-136); LIPASE 56 U/L (8-78); TOTAL PROTEIN 7.6 GM/DL (6.4-8.2)
[2019-09-14] MEDS ORDERED: meTOprolol TARTRATE 25 MG (LOPRESSOR) TABLET PO ONE ×2 (11:15→13:30)
[2019-09-14] MEDS ORDERED: RT-ALBUTEROL/IPRATROPIUM 3 ML (DUONEB) VIAL INH ONE (11:30)
[2019-09-14] MEDS ORDERED: ASPIRIN 81 MG CHEW (CHILDREN'S ASA) PO ONE (11:30)
[2019-09-14] MEDS ORDERED: NS 100 ML (IVPB) BAG IV ONE (11:45)
[2019-09-14] MEDS ORDERED: HOLD METFORMIN - RECEIVED CONTRAST 20 ML VIAL IV SCH (11:45)
[2019-09-14] MEDS ORDERED: CATHETER FLUSH 10 ML SYR IV PRN ×2 (11:45→16:30)
[2019-09-14] MEDS ORDERED: IOHEXOL 350 MG/ML 150 ML (OMNIPAQUE 350) VIAL IV ONE (11:45)
--- NOTE | 2019-09-14 12:36 | Diagnostic Imaging Report ---
PROCEDURE: CT angiography of the chest with contrast. TECHNIQUE: Multiple contiguous axial images were obtained through the chest after uneventful bolus administration of intravenous contrast. 3D reconstructed CTA MIP acquisitions were also performed. Auto Exposure Controls were utilized during the CT exam to meet ALARA standards for radiation dose reduction. DATE: September 14, 2019. COMPARISON: Chest radiograph September 14, 2019. INDICATION: 48-year-old male, chest pain and cough. FINDINGS: There is mild dependent atelectasis. There is no additional focal airspace consolidation. There is no identified pulmonary nodule. There is no lung mass. The central airways are patent. There is no pneumothorax. There is no pleural effusion. There is no identified pulmonary embolus. The main pulmonary artery is normal in caliber. The heart is not enlarged. There is no pericardial effusion. There is no identified abnormally enlarged mediastinal, hilar, or axillary lymph node which meets CT size criteria for adenopathy. The patient is status post cholecystectomy. The right kidney is not seen and may be absent or ectopically positioned. There is mild left pelvic caliectasis. There are degenerative changes of the spine. There is no identified acute bony abnormality. IMPRESSION: CT CHEST. 1. No identified acute cardiopulmonary abnormality. Dictated by: Dictated on workstation # [id number]
[2019-09-14] MEDS ORDERED: CLOPIDOGREL 300 MG (PLAVIX) TABLET PO ONE (13:30)
[2019-09-14] MEDS: NITROGLYCERIN 0.4 MG SL TABS BTL 25'S SL PRN ×2 (13:47→14:12)
--- NOTE | 2019-09-14 14:56 | NUR ---
Transferred by [facility] at this time.
--- NOTE | 2019-09-14 16:03 | Consultation-Cardiology ---
HPI-Cardiology Cardiology Consultation: Date of Consultation 09/14/19 Time Seen by a Provider: 15:40 Date of Admission 09-14-2019 Attending Physician Dinora Marcelo DO Admitting Physician [place] Consulting Physician Toshia Bernard MD HPI: Chief Complaint: Chest pain Palpitations Mr. Reyes is a 48 year old male admitted to ICU 9 from the [facility] ED. He reports for the last 1-2 weeks he has been feeling unwell with frequent cough. He denies any recent fever or chills. He reports cough is dry. He states last night he went to bed and began to have palpitations, describing it as an irregular, fast heart beat. He denies any associated symptoms. He reports he was able to go to sleep. He states he went to work this morning and while at work the palpitations returned and he was having constant left sided chest p ressure. It is worse with a cough. He reports the intensity would vary, but it never went away. He denies any diaphoresis. No c/o syncope or near syncope. He is currently rating his chest pressure at a 6 on a 1-10 pain scale. He is holding the left side of his chest and grimacing when coughing. The discomfort does not radiate. No c/o LE swelling. No c/o n/v/d. He reports he does not take any medications at home. He states he has taken ASA in the past, but ran out and has not taken any for several weeks. Review of Systems-Cardiology Review of Systems Constitutional: No chills, No fever; malaise Eyes: No vision change Ears/Nose/Throat: No epistaxis, No recent hearing loss Respiratory: As described under HPI Cardiovascular: As described under HPI Gastrointestinal: No constipation, No diarrhea, No nausea, No vomiting Genitourinary: No dysuria, No hematuria Musculoskeletal: no symptoms reported Skin: No rash on exposed areas, No ulcerations on exposed areas Psychiatric/Neurological: No anxiety, No depression, No seizure, No focal weakness, No syncope Hematologic: No bleeding abnormalities All Other Systems Reviewed Negative Unless Noted: Yes BHS-Cookxt-Qhsukv Hx Patient Social History Alcohol Use: Denies Use Recreational Drug Use: No Smoking Status: Current Everyday Smoker Former smoker/When Quit: Sep 02, 2012 Type Used: Cigarettes 2nd Hand Smoke Exposure: Yes Recent Foreign Travel: No Recent Infectious Disease Expo: No Past Medical History PMH As described under Assessment. Family Medical History Family Medical History: Mother had HTN, CAD, CABG first diagnosed in her 50's. Father had an WI. Brother's x 2 with HTN. Allergies and Home Medications Allergies Coded Allergies: NSAIDS (Non-Steroidal Anti-Inflamma (Verified Allergy, Intermediate, KIDNEY FUNCTION, 06/19/17) droperidol (Verified Allergy, Intermediate, HYPERACTIVITY, TACHYCARDIA, 06/19/17) fentanyl (Verified Allergy, Unknown, 06/19/17) prochlorperazine (Verified Allergy, Unknown, 06/19/17) Home Medications Allopurinol 300 Mg Tablet, 300 MG PO DAILY, (Reported) Aspirin 81 Mg Tablet.dr, 81 MG PO DAILY, (Reported) Atorvastatin Calcium 40 Mg Tablet, 40 MG PO HS, (Reported) Cephalexin 500 Mg Capsule, 1 CAP PO TID Prescribed by: LIA RUSSELL on 07/01/17 111 Diazepam 5 Mg Tablet, 5 MG PO PRN, (Reported) Duloxetine HCl 30 Mg Capsule.dr, 30 MG PO DAILY, (Reported) Famotidine 20 Mg Tablet, 20 MG PO BID, (Reported) Gabapentin 300 Mg Capsule, 300 MG PO TID, (Reported) Hydrocodone Bit/Acetaminophen 1 Each Tablet, 1-2 TAB PO Q4-6HR PRN for PAIN PRN PAIN Prescribed by: LIA RUSSELL on 07/01/17 111 Hydrocodone Bit/Acetaminophen 1 Tab Tab, 1 EACH PO Q8H PRN for PAIN-SEVERE Prescribed by: TORI PRINGLE on 10/27/182024 Lipase/Protease/Amylase 1 Each Capsule.dr, 1 EACH PO TID, (Reported) Lisinopril 10 Mg Tablet, 10 MG PO DAILY, (Reported) Metoclopramide HCl 10 Mg Tablet, 10 MG PO QID, (Reported) Metoprolol Succinate 25 Mg Tab.er.24h, 25 MG PO DAILY Prescribed by: MARELY BREAUX on 09/15/19 1430 Metoprolol Tartrate 50 Mg Tablet, 50 MG PO DAILY, (Reported) Nitroglycerin 0.4 Mg Tab.subl, 0.4 MG SL PRN, (Reported) Omeprazole 20 Mg Tablet.dr, 20 MG PO DAILY, (Reported) Ondansetron HCl 4 Mg Tab, 4 MG PO PRN, (Reported) Pantoprazole Sodium 40 Mg Tablet.dr, 40 MG PO DAILY, (Reported) Sucralfate 1 Gm Tablet, 1 GM PO QID, (Reported) Physical Exam-Cardiology Physical Exam Vital Signs/I&O 09/15/19 09/15/19 09/15/19 09/15/19 03:37 04:00 04:00 05:09 Pulse 64 66 77 Resp 13 19 14 B/P (MAP) 123/88 (100) 126/93 (104) 127/85 (99) Pulse Ox 95 93 92 O2 Delivery Room Air Room Air Room Air Room Air 09/15/19 09/15/19 09/15/19 09/15/19 06:06 07:00 07:00 07:00 Temp 37.3 Pulse 67 82 77 Resp 13 9 B/P (MAP) 119/94 (102) 134/90 (105) Pulse Ox 94 96 O2 Delivery Room Air Room Air 09/15/19 09/15/19 09/15/19 09/15/19 08:00 08:00 08:00 09:00 Temp 36.9 Pulse 73 76 Resp 28 15 B/P (MAP) 135/87 (103) 132/94 (107) Pulse Ox 95 92 O2 Delivery Room Air Room Air Room Air 09/15/19 09/15/19 09/15/19 09/15/19 10:00 11:00 11:45 12:00 Temp 37.8 Pulse 98 71 77 Resp 18 16 B/P (MAP) 125/80 (95) 119/78 (92) 126/78 (94) Pulse Ox 94 92 94 O2 Delivery Room Air Room Air Room Air 09/15/19 09/15/19 09/15/19 09/15/19 12:00 12:03 12:08 13:00 Pulse 99 B/P (MAP) 134/75 (94) Pulse Ox 94 O2 Delivery Room Air Room Air Room Air Room Air 09/15/19 09/15/19 13:00 14:00 Pulse 105 101 Resp 26 B/P (MAP) 121/88 (99) Pulse Ox 95 O2 Delivery Room Air 09/15/19 00:00 Intake Total 775 ml Output Total 825 ml Balance -50 ml Capillary Refill : Less Than 3 Seconds Constitutional: AAO x 3, well-developed, well-nourished HEENT: PERRL, hearing is well preserved; No oral hygience is good (multiple missing and broken teeth) Neck: No carotid bruit; carotid pulses are 2 + bilaterally Respiratory: No accessory muscle use, No respiratory distress; chest expansion is symmetric, chest is bilaterally symmetric, other (prolonged expiratory phase; frequent dry, hacking cough) Cardiovascular: regular rate-rhythm; No JVD; S1 and S2 Gastrointestinal: No tender; soft, round, audible bowel sounds Extremities: no lower extremity edema bilateral Neurologic/Psychiatric: grossly intact (moves all extremities) Skin: No rash on exposed areas, No ulcerations on exposed areas Data Review Labs Laboratory Tests 09/14/19 16:24: Troponin I < 0.028 09/15/19 03:45: White Blood Count 8.1, Red Blood Count 4.65, Hemoglobin 13.0L, Hematocrit 39L, Mean Corpuscular Volume 84, Mean Corpuscular Hemoglobin 28, Mean Corpuscular Hemoglobin Concent 33, Red Cell Distribution Width 14.1, Platelet Count 252, Mean Platelet Volume 11.1H, Neutrophils (%) (Auto) 57, Lymphocytes (%) (Auto) 27, Monocytes (%) (Auto) 13H, Eosinophils (%) (Auto) 3, Basophils (%) (Auto) 0, Neutrophils # (Auto) 4.6, Lymphocytes # (Auto) 2.2, Monocytes # (Auto) 1.0, Eosinophils # (Auto) 0.2, Basophils # (Auto) 0.0, Prothrombin Time 14.2, INR Comment 1.1, Activated Partial Thromboplast Time 28, Sodium Level 140, Potassium Level 4.1, Chloride Level 108H, Carbon Dioxide Level 23, Anion Gap 9, Blood Urea Nitrogen 14, Creatinine 1.05, Estimat Glomerular Filtration Rate > 60, BUN/Creatinine Ratio 13, Glucose Level 93, Calcium Level 8.8, Corrected Calcium 9.2, Phosphorus Level 4.0, Magnesium Level 1.9, Total Bilirubin 0.4, Aspartate Amino Transf (AST/SGOT) 17, Alanine Aminotransferase (ALT/SGPT) 20, Alkaline Phosphatase 58, Total Protein 6.4, Albumin 3.5, Triglycerides Level 141, Cholesterol Level 133, LDL Cholesterol Direct 80, VLDL Cholesterol 28, HDL Cholesterol 33L Radiology NAME: JOSE J REYES [facility] REC#: [id number] PT STATUS: REG ER : 1970 PHYSICIAN: BRADLY CARDONA DO ADMIT DATE: 09/14/19/ER FS Draft Date of Exam:09/14/19 CHEST 1 VIEW AP/PA ONLY PATIENT HISTORY: Heart palpitations and chest pain. TECHNIQUE: Single frontal view of the chest. COMPARISON: 08/28/2015 FINDINGS: The lung volumes are normal. No focal consolidation is seen. No large pleural effusion or pneumothorax is seen. The cardiomediastinal silhouette is normal in size and contour. No acute osseous abnormality is seen. IMPRESSION: No acute pulmonary abnormality seen. Dictated on workstation # [id number] Dict: 09/14/19 1045 Trans: 09/14/19 1047 [id number] Interpreted by: CORY TOBIN MD Electronically signed by: NAME: JOSE J REYES [facility] REC#: [id number] PT STATUS: REG ER : 1970 PHYSICIAN: BRADLY CARDONA DO ADMIT DATE: 09/14/19/ER FS Signed Date of Exam:09/14/19 CT ANGIO CHEST W PROCEDURE: CT angiography of the chest with contrast. TECHNIQUE: Multiple contiguous axial images were obtained through the chest after uneventful bolus administration of intravenous contrast. 3D reconstructed CTA MIP acquisitions were also performed. Auto Exposure Controls were utilized during the CT exam to meet ALARA standards for radiation dose reduction. DATE: September 14, 2019. COMPARISON: Chest radiograph September 14, 2019. INDICATION: 48-year-old male, chest pain and cough. FINDINGS: There is mild dependent atelectasis. There is no additional focal airspace consolidation. There is no identified pulmonary nodule. There is no lung mass. The central airways are patent. There is no pneumothorax. There is no pleural effusion. There is no identified pulmonary embolus. The main pulmonary artery is normal in caliber. The heart is not enlarged. There is no pericardial effusion. There is no identified abnormally enlarged mediastinal, hilar, or axillary lymph node which meets CT size criteria for adenopathy. The patient is status post cholecystectomy. The right kidney is not seen and may be absent or ectopically positioned. There is mild left pelvic caliectasis. There are degenerative changes of the spine. There is no identified acute bony abnormality. IMPRESSION: CT CHEST. 1. No identified acute cardiopulmonary abnormality. 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 [place] by Dr. Serna. WI in 2013 for which he was treated with a stent at [facility]. Exact details unknown. 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 in [place] (reported as non-cancerous) H/O hyperthyroidism - reported no treatment - TSH 0.96 BPH Tobaccoism, appro 1 07/23 PPD - cessation advised H/O cholecystectomy Family h/o CAD (mother in her 40's, father) Discussion and Recomendations Chest pain of undetermined etiology - worse with cough - no evidence of ACS thus far URI - possible bronchitis - management per medical services Palpitations of undetermined etiology - continue on tele to eval for arrhythmia Request records from [facility] and [facility] Echocardiogram to eval structure Continue ASA d/t reported h/o CAD with stenting in the past Monitor lab and replace electrolytes as indicated Further recs will be based on his hospital course We would like to thank medical services for this consult MARELY BREAUX Sep 14, 2019 16:03
[2019-09-14] MEDS ORDERED: NITROGLYCERIN 0.4 MG SL TABS BTL 25'S SL PRN (16:30)
[2019-09-14] MEDS ORDERED: ONDANSETRON 4 MG/2 ML (SDV) Z0FRAN IVP PRN (16:30)
[2019-09-14] MEDS ORDERED: PANTOPRAZOLE 40 MG (PROTONIX) TAB PO NR (16:46)
[2019-09-14] MEDS: NS IV 1000 ML 1,000 ML IV SCH (17:25)
--- NOTE | 2019-09-14 18:32 | Consultation-Cardiology ---
HPI-Cardiology Cardiology Consultation: Date of Consultation 09/14/19 Time Seen by a Provider: 18:10 Date of Admission Attending Physician Dinora Marcelo DO Admitting Physician [facility] Consulting Physician SARA WOLF MD, MA, FACP, FACC, FSCAI, CCDS HPI: Chief Complaint: CC: Chest pain; Palpitations HPI Mr. Reyes is a 48 year old male admitted to ICU 9 from the [facility] ED. He reports for the last 1-2 weeks he has been feeling unwell with frequent cough. He denies any recent fever or chills. He reports cough is dry. He states last night he went to bed and began to have palpitations, describing it as an irregular, fast heart beat. He denies any associated symptoms. He reports he was able to go to sleep. He states he went to work this morning and while at work the palpitations returned and he was having constant left sided chest pressure. It is worse with a cough. He reports the intensity would vary, but it never went away. He denies any diaphoresis. No c/o syncope or near syncope. He is currently rating his chest pressure at a 6 on a 1-10 pain scale. He is holding the left side of his chest and grimacing when coughing. The discomfort does not radiate. No c/o LE swelling. No c/o n/v/d. He reports he does not take any medications at home. He states he has taken ASA in the past, but ran out and has not taken any for several weeks. Review of Systems-Cardiology Review of Systems Constitutional: No chills, No fever; malaise Eyes: No vision change Ears/Nose/Throat: No epistaxis, No recent hearing loss Respiratory: As described under HPI Cardiovascular: As described under HPI Gastrointestinal: No constipation, No diarrhea, No nausea, No vomiting Genitourinary: No dysuria, No hematuria Musculoskeletal: no symptoms reported Skin: No rash on exposed areas, No ulcerations on exposed areas Psychiatric/Neurological: No anxiety, No depression, No seizure, No focal weakness, No syncope Hematologic: No bleeding abnormalities All Other Systems Reviewed Negative Unless Noted: Yes [id number] Hx Patient Social History Alcohol Use: Denies Use Recreational Drug Use: No Smoking Status: Current Everyday Smoker Former smoker/When Quit: Sep 02, 2012 Type Used: Cigarettes 2nd Hand Smoke Exposure: Yes Recent Foreign Travel: No Recent Infectious Disease Expo: No Immunizations Up To Date Date of Influenza Vaccine: Apr 21, 2019 Past Medical History PMH As described under Assessment. Family Medical History Family Medical History: Mother had HTN, CAD, CABG first diagnosed in her 50's. Father had an FL. Brother's x 2 with HTN. Family History: Cardiovascular disease 19 FATHER Colon cancer 19 FATHER Diabetes mellitus 19 FATHER 19 MOTHER G8 BROTHER Hypertension 19 FATHER 19 MOTHER G8 BROTHER Myocardial infarction 19 FATHER 19 MOTHER Allergies and Home Medications Allergies Coded Allergies: NSAIDS (Non-Steroidal Anti-Inflamma (Verified Allergy, Intermediate, KIDNEY FUNCTION, 06/19/17) droperidol (Verified Allergy, Intermediate, HYPERACTIVITY, TACHYCARDIA, 06/19/17) fentanyl (Verified Allergy, Unknown, 06/19/17) prochlorperazine (Verified Allergy, Unknown, 06/19/17) Home Medications Allopurinol 300 Mg Tablet, 300 MG PO DAILY, (Reported) Aspirin 81 Mg Tablet.dr, 81 MG PO DAILY, (Reported) Atorvastatin Calcium 40 Mg Tablet, 40 MG PO HS, (Reported) Cephalexin 500 Mg Capsule, 1 CAP PO TID Prescribed by: LIA RUSSELL on 07/01/17 111 Diazepam 5 Mg Tablet, 5 MG PO PRN, (Reported) Duloxetine HCl 30 Mg Capsule.dr, 30 MG PO DAILY, (Reported) Famotidine 20 Mg Tablet, 20 MG PO BID, (Reported) Gabapentin 300 Mg Capsule, 300 MG PO TID, (Reported) Hydrocodone Bit/Acetaminophen 1 Each Tablet, 1-2 TAB PO Q4-6HR PRN for PAIN PRN PAIN Prescribed by: LIA RUSSELL on 07/01/17 1116 Hydrocodone Bit/Acetaminophen 1 Tab Tab, 1 EACH PO Q8H PRN for PAIN-SEVERE Prescribed by: TORI PRINGLE on 10/27/182024 Lipase/Protease/Amylase 1 Each Capsule.dr, 1 EACH PO TID, (Reported) Lisinopril 10 Mg Tablet, 10 MG PO DAILY, (Reported) Metoclopramide HCl 10 Mg Tablet, 10 MG PO QID, (Reported) Metoprolol Tartrate 50 Mg Tablet, 50 MG PO DAILY, (Reported) Nitroglycerin 0.4 Mg Tab.subl, 0.4 MG SL PRN, (Reported) Omeprazole 20 Mg Tablet.dr, 20 MG PO DAILY, (Reported) Ondansetron HCl 4 Mg Tab, 4 MG PO PRN, (Reported) Pantoprazole Sodium 40 Mg Tablet.dr, 40 MG PO DAILY, (Reported) Sucralfate 1 Gm Tablet, 1 GM PO QID, (Reported) Patient Home Medication List Home Medication List Reviewed: Yes Physical Exam-Cardiology Physical Exam Vital Signs/I&O 09/14/19 09/14/19 09/14/19 09/14/19 10:02 14:29 16:00 16:00 Temp 37.1 36.8 36.8 Pulse 96 80 69 Resp 16 16 12 B/P (MAP) 132/93 (106) 123/82 140/93 (109) Pulse Ox 98 95 96 99 O2 Delivery Room Air Room Air 09/14/19 09/14/19 09/14/19 17:00 18:00 18:06 Pulse 64 68 72 Resp 13 11 B/P (MAP) 121/92 (102) 129/88 (102) Pulse Ox 96 97 O2 Delivery Room Air Room Air Capillary Refill : Less Than 3 Seconds Constitutional: AAO x 3, well-developed, well-nourished HEENT: PERRL, hearing is well preserved; No oral hygience is good (multiple missing and broken teeth) Neck: No carotid bruit; carotid pulses are 2 + bilaterally Respiratory: No accessory muscle use, No respiratory distress; chest expansion is symmetric, chest is bilaterally symmetric, other (prolonged expiratory phase; frequent dry, hacking cough) Cardiovascular: regular rate-rhythm; No JVD; S1 and S2 Gastrointestinal: No tender; soft, round, audible bowel sounds Extremities: no lower extremity edema bilateral Neurologic/Psychiatric: grossly intact (moves all extremities) Skin: No rash on exposed areas, No ulcerations on exposed areas Data Review Labs Laboratory Tests 09/14/19 10:15: White Blood Count 8.4, Red Blood Count 5.08, Hemoglobin 14.3, Hematocrit 42, Mean Corpuscular Volume 83, Mean Corpuscular Hemoglobin 28, Mean Corpuscular Hemoglobin Concent 34, Red Cell Distribution Width 13.6, Platelet Count 239, Mean Platelet Volume 10.7H, Neutrophils (%) (Auto) 65, Lymphocytes (%) (Auto) 23, Monocytes (%) (Auto) 10, Eosinophils (%) (Auto) 1, Basophils (%) (Auto) 1, Neutrophils # (Auto) 5.4, Lymphocytes # (Auto) 1.9, Monocytes # (Auto) 0.9, Eosinophils # (Auto) 0.1, Basophils # (Auto) 0.1, D-Dimer 1.04H, Sodium Level 140, Potassium Level 4.0, Chloride Level 103, Carbon Dioxide Level 24, Anion Gap 13, Blood Urea Nitrogen 12, Creatinine 1.07, Estimat Glomerular Filtration Rate > 60, BUN/Creatinine Ratio 11, Glucose Level 114H, Calcium Level 9.4, Corrected Calcium 9.5, Magnesium Level 2.0, Total Bilirubin 0.3, Aspartate Amino Transf (AST/SGOT) 17, Alanine Aminotransferase (ALT/SGPT) 25, Alkaline Phosphatase 67, Troponin I < 0.30, Pro-B-Type Natriuretic Peptide 83.1H, Total Protein 7.6, Albumin 3.9, Lipase 56, Thyroid Stimulating Hormone (TSH) 0.96 09/14/19 13:30: Troponin I < 0.30 09/14/19 16:24: Troponin I < 0.028 A/P-Cardiology Assessment/Admission Diagnosis Chest pain of undetermined etiology Palpitations of undetermined etiology URI, possible bronchitis - management per Medical services Reported h/o FL in 2012 for which he was treated with a stent at [facility] in [place], [place] by Dr. Serna. FL in 2013 for which he was treated with a stent at [facility]. Exact details unknown. 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 We recommend card cath. We reviewed the rationale, procedure, risks, benefits, potential complications, and alternatives of card cath and possible PCI with him in detail. He understands and wishes to proceed. Arrangements are being made for tomorrow am Continue on tele to eval for arrhythmia Request records from [facility] and [facility] Echocardiogram to eval structure Has been treated with ASA, Plavix and bb today Monitor lab and replace electrolytes as indicated Further recs will be based on his hospital course We would like to thank Medical services for this consult Clinical Quality Measures DVT/VTE Risk/Contraindication: Risk Factor Score Per Nursin RFS Level Per Nursing on Admit: 4+=Very High SARA WOLF MD FACP FAC CCDS Sep 14, 2019 18:32
--- NOTE | 2019-09-14 18:43 | History & Physical-Hospitalist ---
History of Present Illness HPI/Chief Complaint CC: Unstable angina HPI: This is a 48yoWM clinic patient of Hayley Avril who has a h/o CAD s/p stents 2012 and 2013 who continues to smoke and no follow ups with Cardiology who presents to [facility] with CP and was in need of cath to evaluate unstable angina. Troponin negative but patient is high risk. Source: patient, RN/MD Exam Limitations: no limitations Date Seen 09/14/19 Time Seen by a Provider: 18:30 Attending Physician Dinora Marcelo DO [facility] Referring Physician Date of Admission Sep 14, 2019 at 14:42 Home Medications & Allergies Home Medications Reviewed patient Home Medication Reconciliation performed by pharmacy medication reconciliations signal maintenance technician and/or nursing. Patients Allergies have been reviewed. Allergies Allergies Coded Allergies NSAIDS (Non-Steroidal Anti-Inflamma (Verified Allergy, Intermediate, KIDNEY FUNCTION, 06/19/17) droperidol (Verified Allergy, Intermediate, HYPERACTIVITY, TACHYCARDIA, ) fentanyl (Verified Allergy, Unknown, 06/19/17) prochlorperazine (Verified Allergy, Unknown, 06/19/17) Past Vehnyew-Agzcwg-Lxzikw Hx Past Med/Social Hx: Reviewed Nursing Past Med/Soc Hx, Reviewed and Corrections made Patient Social History Marrital Status: single Employed/Student: employed ([employer] / ?.??) Alcohol Use: Denies Use Recreational Drug Use: No Smoking Status: Current Everyday Smoker Former Smoker, Quit: Oct 18, 2012 Type Used: Cigarettes 2nd Hand Smoke Exposure: Yes Recent Foreign Travel: No Contact w/other who traveled: No Recent Hopitalizations: No Recent Infectious Disease Expo: No Immunizations Up To Date Date of Influenza Vaccine: Apr 21, 2019 Seasonal Allergies Seasonal Allergies: Yes Past Medical History Surgeries: Appendectomy, Coronary Stent, Gallbladder, Nephrectomy Currently Using CPAP: Yes Cardiac: Coronary Artery Disease, Heart Attack, High Cholesterol, Hypertension Neurological: TIA Reproductive: No Sexually Transmitted Disease: Yes HIV/AIDS: No Genitourinary: Kidney Stones Gastrointestinal: Gastroesophageal Reflux, Esophagitis Endocrine: Hyperthyroidism Loss of Vision: Bilateral Hearing Impairment: Denies Psychosocial: Anxiety History of Blood Disorders: No Adverse Reaction to Blood Granado: No (N/A) Family History Cardiovascular disease 19 FATHER Colon cancer 19 FATHER Diabetes mellitus 19 FATHER 19 MOTHER G8 BROTHER Hypertension 19 FATHER 19 MOTHER G8 BROTHER Myocardial infarction 19 FATHER 19 MOTHER No Pertinent Family Hx Review of Systems Constitutional: see HPI Cardiovascular: chest pain Physical Exam Physical Exam Vital Signs Vital Signs - First Documented 09/14/19 10:02 Temp 37.1 Pulse 96 Resp 16 B/P (MAP) 132/93 (106) Pulse Ox 98 Capillary Refill : Less Than 3 Seconds Height, Weight, BMI Height: 5'9.00" Weight: 173lbs. 0oz. 78.337400fl; 28.27 BMI Method:Stated General Appearance: No Apparent Distress Eyes: Right Eye Normal Inspection, Right Eye PERRL HEENT: PERRL/EOMI, TMs Normal, Normal ENT Inspection, Pharynx Normal, Moist Mucous Membranes Neck: Full Range of Motion, Normal Inspection, Non Tender Respiratory: Chest Non Tender, Lungs Clear, Normal Breath Sounds, No Accessory Muscle Use, No Respiratory Distress Cardiovascular: Regular Rate, Rhythm, No Edema, No Gallop, No JVD, No Murmur, Normal Peripheral Pulses Gastrointestinal: Normal Bowel Sounds, No Organomegaly, No Pulsatile Mass, Non Tender, Soft Back: Normal Inspection, No CVA Tenderness, No Vertebral Tenderness Extremity: Normal Capillary Refill, Normal Inspection, Normal Range of Motion, Non Tender, No Calf Tenderness, No Pedal Edema Neurologic/Psychiatric: Alert, Oriented x3, No Motor/Sensory Deficits, Normal Mood/Affect Skin: Normal Color, Warm/Dry Lymphatic: No Adenopathy Results Results/Procedures Labs Laboratory Tests 09/14/19 10:15 Patient resulted labs reviewed. Assessment/Plan Admission Diagnosis Assessment: Unstable angina Smoker CAD previous stents 2012 2013 Non-compliance Solo kidney Plan: Cath tomorrow IVF to prep for IV contrast due to solo kidney Admission Status: Inpatient Order (span 2 midnights) Reason for Inpatient Admission: unstable angina will need cath and solo kidney close monitoring Diagnosis/Problems Diagnosis/Problems (1) Chest pain Status: Acute Qualifiers: Chest pain type: unspecified Qualified Codes: R07.9 - Chest pain, unspecified (2) Coronary artery disease Status: Acute Clinical Quality Measures DVT/VTE Risk/Contraindication: Risk Factor Score Per Nursin RFS Level Per Nursing on Admit: 4+=Very High DINORA MARCELO DO Sep 14, 2019 18:43
[2019-09-14] MEDS: morphine INJ 4 MG/ML 1 ML (VIAL/SYRINGE) IVP PRN (18:51)
--- NOTE | 2019-09-14 21:58 | NUR ---
Pt c/o headache, E-ICU contacted, awaiting orders.
[2019-09-14] MEDS ORDERED: ACETAMINOPHEN 325 MG TABLET PO PRN (22:30)
[2019-09-14] MEDS ORDERED: PROMETHAZINE/ CODEINE SYRUP 5 ML UDC PO PRN (22:30)
[2019-09-15] VITALS (28 sets, daily range): BP systolic 119–156; BP diastolic 44–94
[2019-09-15] MEDS: morphine INJ 4 MG/ML 1 ML (VIAL/SYRINGE) IVP PRN ×3 (00:02→19:58)
[2019-09-15 04:27] LABS: BASOPHILS % (AUTO) 0 % (0-10); EOSINOPHILS # (AUTO) 0.2 10^3/uL (0.0-0.3); EOSINOPHILS % (AUTO) 3 % (0-10); HEMATOCRIT 39 % (40-54); LYMPHOCYTES # (AUTO) 2.2 X 10^3 (1.0-4.0); LYMPHOCYTES % (AUTO) 27 % (12-44); MEAN CORPUSCULAR HEMOGLOBIN 28 PG (25-34); MEAN CORPUSCULAR HGB CONC 33 G/DL (32-36); MEAN CORPUSCULAR VOLUME 84 FL (80-99); MEAN PLATELET VOLUME 11.1 FL (7.4-10.4); MONOCYTES % (AUTO) 13 % (0-12); NEUTROPHILS # (AUTO) 4.6 X 10^3 (1.8-7.8); NEUTROPHILS % (AUTO) 57 % (42-75); PLATELET COUNT 252 10^3/uL (130-400); RED CELL DISTRIBUTION WIDTH 14.1 % (10.0-14.5); WHITE BLOOD COUNT 8.1 10^3/uL (4.3-11.0)
[2019-09-15 04:40] LABS: INR 1.1 (0.8-1.4); PROTHROMBIN TIME PATIENT 14.2 SEC (12.2-14.7)
[2019-09-15 04:50] LABS: ALANINE AMINOTRANSFERASE 20 U/L (0-55); ALBUMIN 3.5 GM/DL (3.2-4.5); ALKALINE PHOSPHATASE 58 U/L (40-136); BILIRUBIN,TOTAL 0.4 MG/DL (0.1-1.0); BUN/CREATININE RATIO 13; CALCIUM 8.8 MG/DL (8.5-10.1); CARBON DIOXIDE 23 MMOL/L (21-32); CHLORIDE 108 MMOL/L (98-107); CHOLESTEROL 133 MG/DL (< 200); CREATININE SERUM 1.05 MG/DL (0.60-1.30); GFR ESTIMATED > 60; GLUCOSE 93 MG/DL (70-105); HDL CHOLESTEROL 33 MG/DL (40-60); MAGNESIUM 1.9 MG/DL (1.6-2.4); POTASSIUM 4.1 MMOL/L (3.6-5.0); SODIUM 140 MMOL/L (135-145); TOTAL PROTEIN 6.4 GM/DL (6.4-8.2); TRIGLYCERIDES 141 MG/DL (<150); VLDL CHOLESTEROL 28 MG/DL (5-40)
--- NOTE | 2019-09-15 06:17 | Pulmonary Consultation ---
History of Present Illness History of Present Illness Date of Admission Allergies and Home Medications Allergies Coded Allergies: NSAIDS (Non-Steroidal Anti-Inflamma (Verified Allergy, Intermediate, K IDNEY FUNCTION, 06/19/17) droperidol (Verified Allergy, Intermediate, HYPERACTIVITY, TACHYCARDIA, 06/19/17) fentanyl (Verified Allergy, Unknown, 06/19/17) prochlorperazine (Verified Allergy, Unknown, 06/19/17) Home Medications Allopurinol 300 Mg Tablet, 300 MG PO DAILY, (Reported) Aspirin 81 Mg Tablet.dr, 81 MG PO DAILY, (Reported) Atorvastatin Calcium 40 Mg Tablet, 40 MG PO HS, (Reported) Cephalexin 500 Mg Capsule, 1 CAP PO TID Prescribed by: LIA RUSSELL on 07/01/171115 Diazepam 5 Mg Tablet, 5 MG PO PRN, (Reported) Duloxetine HCl 30 Mg Capsule.dr, 30 MG PO DAILY, (Reported) Famotidine 20 Mg Tablet, 20 MG PO BID, (Reported) Gabapentin 300 Mg Capsule, 300 MG PO TID, (Reported) Hydrocodone Bit/Acetaminophen 1 Each Tablet, 1-2 TAB PO Q4-6HR PRN for PAIN PRN PAIN Prescribed by: LIA RUSSELL on 07/01/171115 Hydrocodone Bit/Acetaminophen 1 Tab Tab, 1 EACH PO Q8H PRN for PAIN-SEVERE Prescribed by: TORI PRINGLE on 10/27/182024 Lipase/Protease/Amylase 1 Each Capsule.dr, 1 EACH PO TID, (Reported) Lisinopril 10 Mg Tablet, 10 MG PO DAILY, (Reported) Metoclopramide HCl 10 Mg Tablet, 10 MG PO QID, (Reported) Metoprolol Tartrate 50 Mg Tablet, 50 MG PO DAILY, (Reported) Nitroglycerin 0.4 Mg Tab.subl, 0.4 MG SL PRN, (Reported) Omeprazole 20 Mg Tablet.dr, 20 MG PO DAILY, (Reported) Ondansetron HCl 4 Mg Tab, 4 MG PO PRN, (Reported) Pantoprazole Sodium 40 Mg Tablet.dr, 40 MG PO DAILY, (Reported) Sucralfate 1 Gm Tablet, 1 GM PO QID, (Reported) Past Eaxogwm-Rqrtdj-Jakwsr Hx Past Med/Social Hx: Reviewed Nursing Past Med/Soc Hx, Reviewed and Corrections made Patient Social History Alcohol Use: Denies Use Recreational Drug Use: No Smoking Status: Current Everyday Smoker Type Used: Cigarettes Former Smoker, Quit: Oct 18, 2012 2nd Hand Smoke Exposure: Yes Recent Foreign Travel: No Contact w/Someone Who Travel: No Recent Infectious Disease Expo: No Recent Hopitalizations: No Immunizations Up To Date Date of Influenza Vaccine: Apr 21, 2019 Seasonal Allergies Seasonal Allergies: Yes Past Medical History Surgeries: Yes (RIGHT NEPHRECTOMY, LEFT KNEE SCOPE, R WRIST) Appendectomy, Coronary Stent, Gallbladder, Nephrectomy Respiratory: Yes Sleep Apnea Currently Using CPAP: Yes Cardiac: Yes (STENTS X 2, LAST HEART CATH 2014) Coronary Artery Disease, Heart Attack, High Cholesterol, Hypertension Neurological: Yes (TIA X2 LAST ONE 2011) TIA Reproductive Disorders: No Sexually Transmitted Disease: Yes HIV/AIDS: No Kidney Stones Gastrointestinal: Yes Gastroesophageal Reflux, Esophagitis Musculoskeletal: No Endocrine: Yes Hyperthyroidism Loss of Vision: Bilateral Hearing Impairment: Denies Cancer: No Psychosocial: Yes Anxiety Integumentary: No Blood Disorders: No Adverse Reaction/Blood Tranf: No (N/A) Family Medical History Cardiovascular disease 19 FATHER Colon cancer 19 FATHER Diabetes mellitus 19 FATHER 19 MOTHER G8 BROTHER Hypertension 19 FATHER 19 MOTHER G8 BROTHER Myocardial infarction 19 FATHER 19 MOTHER No Pertinent Family Hx Sepsis Event Evaluation Height, Weight, BMI Height: 5'9.00" Weight: 173lbs. 0oz. 78.145118qr; 28.27 BMI Method:Stated Exam Exam Vital Signs Date Time Temp Pulse Resp B/P (MAP) Pulse Ox O2 Delivery O2 Flow Rate FiO2 09/15/19 06:06 67 13 119/94 (102) 94 Room Air 09/15/19 05:09 77 14 127/85 (99) 92 Room Air 09/15/19 04:00 Room Air 09/15/19 04:00 66 19 126/93 (104) 93 Room Air 09/15/19 03:37 64 13 123/88 (100) 95 Room Air 09/15/19 02:00 70 14 125/90 (102) 93 Room Air 09/15/19 01:44 73 09/15/19 01:00 73 14 123/83 (96) 94 Room Air 09/15/19 00:00 Room Air 09/15/19 00:00 76 16 127/86 (100) 94 Room Air 09/14/19 23:10 36.8 09/14/19 23:00 78 21 123/84 (97) 94 Room Air 09/14/19 22:00 78 10 120/81 (94) 95 Room Air 09/14/19 21:00 71 10 144/108 (120) 95 Room Air 09/14/19 20:00 Room Air 09/14/19 20:00 36.9 09/14/19 20:00 70 16 122/88 (99) 95 Room Air 09/14/19 19:30 80 09/14/19 19:00 71 15 114/83 (93) 93 Room Air 09/14/19 18:06 72 09/14/19 18:00 68 11 129/88 (102) 97 Room Air 09/14/19 17:00 64 13 121/92 (102) 96 Room Air 09/14/19 16:00 36.8 69 12 140/93 (109) 99 Room Air 09/14/19 16:00 96 Room Air 09/14/19 14:29 36.8 80 16 123/82 95 09/14/19 10:02 37.1 96 16 132/93 (106) 98 I & O 09/15/19 07:00 Intake Total 1875 ml Output Total 1025 ml Balance 850 ml Height & Weight Height: 5'9.00" Weight: 173lbs. 0oz. 78.725724pq; 28.27 BMI Method:Stated General Appearance: No Apparent Distress HEENT: PERRL/EOMI, TMs Normal, Normal ENT Inspection, Pharynx Normal, Moist Mucous Membranes Neck: Full Range of Motion, Normal Inspection, Non Tender Respiratory: Chest Non Tender, Lungs Clear, Normal Breath Sounds, No Accessory Muscle Use, No Respiratory Distress Cardiovascular: Regular Rate, Rhythm, No Edema, No Gallop, No JVD, No Murmur, Normal Peripheral Pulses Capillary Refill: Less Than 3 Seconds Extremity: Normal Capillary Refill, Normal Inspection, Normal Range of Motion, Non Tender, No Calf Tenderness, No Pedal Edema Neurologic/Psychiatric: Alert, Oriented x3, No Motor/Sensory Deficits, Normal Mood/Affect Skin: Normal Color, Warm/Dry Lymphatic: No Adenopathy Results Lab Laboratory Tests 09/14/19 10:15 09/15/19 03:45 Assessment/Plan Assessment/Plan CP r/o USA -Hx of stents. Plan is for cardiac cath today Tobacco use CAD -Cardiology following Noncompliance YOGI ULRICH DO Sep 15, 2019 06:17
[2019-09-15] MEDS: NS IV 1000 ML 1,000 ML IV SCH ×2 (06:56→23:41)
--- NOTE | 2019-09-15 07:25 | Diagnostic Imaging Report ---
EXAMINATION: Chest 1 view HISTORY: Dyspnea. COMPARISON: Chest radiograph on 09/14/2019. FINDINGS: The lung volumes are decreased. No focal consolidation is seen. No large pleural effusion or pneumothorax is seen. The cardiomediastinal silhouette is normal in size and contour. No acute osseous abnormality is seen. IMPRESSION: 1. Lung volumes are decreased, which may represent poor inspiratory effort. No focal consolidations. Dictated by: Dictated on workstation # [id number]
[2019-09-15] MEDS: PANTOPRAZOLE 40 MG (PROTONIX) TAB PO SCH (07:45)
[2019-09-15] MEDS: ASPIRIN E.C. 81 MG (ECOTRIN) TAB PO SCH (07:45)
[2019-09-15] MEDS: CLOPIDOGREL 75 MG (PLAVIX) TABLET PO SCH (07:45)
[2019-09-15] MEDS ORDERED: RT-ADVAIR HFA 115/21 MCG PER PUFF IH SCH (08:00)
[2019-09-15] MEDS ORDERED: ASPIRIN 81 MG CHEW (CHILDREN'S ASA) PO SCH (09:00)
[2019-09-15] MEDS ORDERED: HEParin (CATH LAB) 2,000 ML IV ONE (09:29)
[2019-09-15] MEDS ORDERED: LIDOCAINE 1% INJ 20 ML 20 ML VIAL ONE (09:29)
[2019-09-15] MEDS: RT-ALBUTEROL/IPRATROPIUM 3 ML (DUONEB) VIAL INH SCH ×4 (10:05→18:41)
--- NOTE | 2019-09-15 10:27 | Progress Note - Hospitalist ---
Subjective HPI/CC On Admission Date Seen by Provider: Sep 15, 2019 Time Seen by Provider: 09:15 CC: Unstable angina HPI: This is a 48yoWM clinic patient of Hayley Mackenzie who has a h/o CAD s/p stents 2012 and 2013 who continues to smoke and no follow ups with Cardiology who presents to [facility] with CP and was in need of cath to evaluate unstable angina. Troponin negative but patient is high risk. Subjective/Events-last exam Cath will be performed today by Dr. Bernard No issues Takes Morphine on a regular basis Overall poor motivation Review of Systems Cardiovascular: Chest Pain Objective Exam Vital Signs Vital Signs Date Time Temp Pulse Resp B/P (MAP) Pulse Ox O2 Delivery O2 Flow Rate FiO2 09/15/19 20:00 36.9 09/15/19 18:41 96 Room Air 09/15/19 18:00 91 19 131/88 (102) Capillary Refill : Less Than 3 Seconds General Appearance: No Apparent Distress, WD/WN, Chronically ill HEENT: PERRL/EOMI, TMs Normal, Normal ENT Inspection, Pharynx Normal, Moist Mucous Membranes Neck: Full Range of Motion, Normal Inspection, Non Tender, Supple, Carotid Bruit Respiratory: Chest Non Tender, Lungs Clear, Normal Breath Sounds, No Accessory Muscle Use, No Respiratory Distress Cardiovascular: Regular Rate, Rhythm, No Edema, No Gallop, No JVD, No Murmur, Normal Peripheral Pulses Gastrointestinal: Normal Bowel Sounds, No Organomegaly, No Pulsatile Mass, Non Tender, Soft Back: Normal Inspection, No CVA Tenderness, No Vertebral Tenderness Extremity: Normal Capillary Refill, Normal Inspection, Normal Range of Motion, Non Tender, No Calf Tenderness, No Pedal Edema Neurologic/Psychiatric: Alert, Oriented x3, No Motor/Sensory Deficits, Normal Mood/Affect Skin: Normal Color, Warm/Dry Lymphatic: No Adenopathy Results/Procedures Lab Laboratory Tests 09/15/19 03:45 Patient resulted labs reviewed. Assessment/Plan Assessment and Plan Assess & Plan/Chief Complaint Assessment: Unstable angina Smoker CAD previous stents 2012 2013 Non-compliance Solo kidney Plan: Cath today IVF to prep for IV contrast due to solo kidney Diagnosis/Problems Diagnosis/Problems (1) Chest pain Status: Acute Qualifiers: Chest pain type: unspecified Qualified Codes: R07.9 - Chest pain, unspecified (2) Coronary artery disease Status: Acute Qualifiers: Coronary Disease-Associated Artery/Lesion type: [place] artery Lime vs. transplanted heart: [place] heart Associated angina: without angina Qualified Codes: I25.10 - Atherosclerotic heart disease of [place] coronary artery without angina pectoris Clinical Quality Measures DVT/VTE Risk/Contraindication: Risk Factor Score Per Nursin RFS Level Per Nursing on Admit: 4+=Very High JOSÉ MIGUEL JIMÉNEZ DO Sep 15, 2019 10:27
[2019-09-15] MEDS: ADVAIR HFA 115/21 MCG INHALER 8 GM IH SCH ×2 (12:03→18:42)
[2019-09-15] MEDS ORDERED: fentaNYL INJECTION 100 MCG/2 ML AMP ONE (12:12)
[2019-09-15] MEDS ORDERED: MIDAZOLAM 5 MG/5 ML (VERSED) VIAL ONE (12:12)
--- NOTE | 2019-09-15 12:26 | Cardiac Procedure Note-CS/ASA ---
Pre-Procedure Note Pre-Op Procedure Note H&P Reviewed The H&P was reviewed, patient examined and no changes noted. Date H&P Reviewed: Sep 15, 2019 Time H&P Reviewed: 12:26 Conscious Sedation Pre-Proced Time 12:26 ASA Score 3 For ASA 3 and 4: Consider anesthesia and medical clearance. Also, for patients with a history of failed moderate sedation consider anesthesia. Airway Lungs Heart ASA score ASA 1: a normal healthy patient ASA 2: a patient with a mild systemic disease (mid diabetes, controlled hypertension, obesity ASA 3: a patient with a severe systemic disease that limits activity (angina, COPD, prior Myocardial infarction) ASA 4: a patient with an incapacitating disease that is a constant threat to life (CHF, renal failure) ASA 5: a moribund patient not expected to survive 24 hrs. (ruptured aneurysm) ASA 6: a declared brain- patient whose organs are being harvested. For emergent operations, add the letter E after the classification Mallampati Classification Grade 2 Sedation Plan Analgesia, Amnesia, Plan communicated to team members, Discussed options with patient/fam, Discussed risks with patient/fam The patient is an appropriate candidate to undergo the planned procedure, sedation, and anesthesia. The patient immediately re-assessed prior to indication. SARA WOLF MD FACP FAC CCDS Sep 15, 2019 12:26
[2019-09-15] MEDS ORDERED: NS IV 1000 ML 1,000 ML IV SCH (12:51)
--- NOTE | 2019-09-15 12:59 | Progress Note - Cardiology ---
Cardiology SOAP Progress Note Subjective: No cp or palp or syncope since adm Cough and shortness of breath improving Objective: I&O/Vital Signs 09/15/19 09/15/19 09/15/19 09/15/19 01:00 01:44 02:00 03:37 Pulse 73 73 70 64 Resp 14 14 13 B/P (MAP) 123/83 (96) 125/90 (102) 123/88 (100) Pulse Ox 94 93 95 O2 Delivery Room Air Room Air Room Air 09/15/19 09/15/19 09/15/19 09/15/19 04:00 04:00 05:09 06:06 Pulse 66 77 67 Resp 19 14 13 B/P (MAP) 126/93 (104) 127/85 (99) 119/94 (102) Pulse Ox 93 92 94 O2 Delivery Room Air Room Air Room Air Room Air 09/15/19 09/15/19 09/15/19 09/15/19 07:00 07:00 07:00 08:00 Temp 37.3 36.9 Pulse 82 77 Resp 9 B/P (MAP) 134/90 (105) Pulse Ox 96 O2 Delivery Room Air 09/15/19 09/15/19 09/15/19 09/15/19 08:00 08:00 09:00 10:00 Pulse 73 76 98 Resp 28 15 18 B/P (MAP) 135/87 (103) 132/94 (107) 125/80 (95) Pulse Ox 95 92 94 O2 Delivery Room Air Room Air Room Air Room Air 09/15/19 09/15/19 09/15/19 09/15/19 11:00 11:45 12:00 12:03 Temp 37.8 Pulse 71 77 Resp 16 B/P (MAP) 119/78 (92) 126/78 (94) Pulse Ox 92 94 94 O2 Delivery Room Air Room Air Room Air 09/15/19 12:08 O2 Delivery Room Air 09/14/19 23:59 Intake Total 775 ml Output Total 825 ml Balance -50 ml Weight (Pounds): 173 Weight (Ounces): 0 Weight (Calculated Kilograms): 78.252845 Constitutional: AAO x 3, well-developed, well-nourished Respiratory: No accessory muscle use, No respiratory distress; chest expansion is symmetric, chest is bilaterally symmetric, other (prolonged expiratory phase; frequent dry, hacking cough) Cardiovascular: regular rate-rhythm; No JVD; S1 and S2 Gastrointestional: No tender; soft, round, audible bowel sounds Extremities: no lower extremity edema bilateral Neurologic/Psychiatric: grossly intact (moves all extremities) Skin: No rash on exposed areas, No ulcerations on exposed areas Results/Procedures: Labs Laboratory Tests 09/14/19 13:30: Troponin I < 0.30 09/14/19 16:24: Troponin I < 0.028 09/15/19 03:45: White Blood Count 8.1, Red Blood Count 4.65, Hemoglobin 13.0L, Hematocrit 39L, Mean Corpuscular Volume 84, Mean Corpuscular Hemoglobin 28, Mean Corpuscular Hemoglobin Concent 33, Red Cell Distribution Width 14.1, Platelet Count 252, Mean Platelet Volume 11.1H, Neutrophils (%) (Auto) 57, Lymphocytes (%) (Auto) 27, Monocytes (%) (Auto) 13H, Eosinophils (%) (Auto) 3, Basophils (%) (Auto) 0, Neutrophils # (Auto) 4.6, Lymphocytes # (Auto) 2.2, Monocytes # (Auto) 1.0, Eosinophils # (Auto) 0.2, Basophils # (Auto) 0.0, Prothrombin Time 14.2, INR Comment 1.1, Activated Partial Thromboplast Time 28, Sodium Level 140, Potassium Level 4.1, Chloride Level 108H, Carbon Dioxide Level 23, Anion Gap 9, Blood Urea Nitrogen 14, Creatinine 1.05, Estimat Glomerular Filtration Rate > 60, BUN/Creatinine Ratio 13, Glucose Level 93, Calcium Level 8.8, Corrected Calcium 9.2, Phosphorus Level 4.0, Magnesium Level 1.9, Total Bilirubin 0.4, Aspartate Amino Transf (AST/SGOT) 17, Alanine Aminotransferase (ALT/SGPT) 20, Alkaline Phosphatase 58, Total Protein 6.4, Albumin 3.5, Triglycerides Level 141, Cholesterol Level 133, LDL Cholesterol Direct 80, VLDL Cholesterol 28, HDL Cholesterol 33L Laboratory Tests 09/14/19 10:15 09/15/19 03:45 A/P: Assessment: Chest pain, probably noncardiac (based on w/u described below) etiology undetermined Palpitations of undetermined etiology URI, possible bronchitis - management per Medical services H/o [place] in 2012 and 2013 w/ h/o stent at [facility] Card cath of 09/15/19: Long stented segment in prox and mid LAD that is patent and has up to 30 stenoses, no signficant obstructive CAD, RA dominant, LVEDP 9 mmHg, LVEF 60% 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
[2019-09-15] MEDS ORDERED: PATIENT MAY USE OWN MEDS, ALL PO SCH (13:00)
[2019-09-15] MEDS ORDERED: MTP25TSR PO (14:30)
[2019-09-16] VITALS (15 sets, daily range): BP systolic 102–140; BP diastolic 60–104
[2019-09-16 03:53] LABS: BASOPHILS % (AUTO) 0 % (0-10); EOSINOPHILS # (AUTO) 0.2 10^3/uL (0.0-0.3); EOSINOPHILS % (AUTO) 2 % (0-10); HEMATOCRIT 38 % (40-54); HEMOGLOBIN 12.6 G/DL (13.3-17.7); LYMPHOCYTES # (AUTO) 1.8 X 10^3 (1.0-4.0); LYMPHOCYTES % (AUTO) 22 % (12-44); MEAN CORPUSCULAR HEMOGLOBIN 28 PG (25-34); MEAN CORPUSCULAR HGB CONC 33 G/DL (32-36); MEAN CORPUSCULAR VOLUME 84 FL (80-99); MEAN PLATELET VOLUME 10.3 FL (7.4-10.4); MONOCYTES # (AUTO) 0.9 X 10^3 (0.0-1.0); MONOCYTES % (AUTO) 11 % (0-12); NEUTROPHILS # (AUTO) 5.1 X 10^3 (1.8-7.8); NEUTROPHILS % (AUTO) 64 % (42-75); PLATELET COUNT 226 10^3/uL (130-400); RED CELL DISTRIBUTION WIDTH 14.1 % (10.0-14.5); WHITE BLOOD COUNT 7.9 10^3/uL (4.3-11.0)
[2019-09-16 04:17] LABS: BUN/CREATININE RATIO 13; CALCIUM 8.8 MG/DL (8.5-10.1); CARBON DIOXIDE 22 MMOL/L (21-32); CHLORIDE 106 MMOL/L (98-107); CREATININE SERUM 0.93 MG/DL (0.60-1.30); GFR ESTIMATED > 60; GLUCOSE 96 MG/DL (70-105); MAGNESIUM 1.9 MG/DL (1.6-2.4); POTASSIUM 3.9 MMOL/L (3.6-5.0); SODIUM 139 MMOL/L (135-145)
[2019-09-16] MEDS: morphine INJ 4 MG/ML 1 ML (VIAL/SYRINGE) IVP PRN (04:17)
--- NOTE | 2019-09-16 05:00 | Pulmonary Progress Note ---
Subjective Time Seen by a Provider: 04:58 Sepsis Event Evaluation Height, Weight, BMI Height: 5'9.00" Weight: 173lbs. 0oz. 78.190322pb; 28.27 BMI Method:Stated Exam Exam Vital Signs Date Time Temp Pulse Resp B/P (MAP) Pulse Ox O2 Delivery O2 Flow Rate FiO2 09/16/19 04:00 75 18 140/95 (110) 95 Room Air 09/16/19 03:00 72 16 102/84 (90) 95 Room Air 09/16/19 02:00 91 26 134/94 (107) 94 Room Air 09/16/19 01:00 81 09/16/19 01:00 81 121/80 (94) 93 Room Air 09/16/19 00:00 89 106/60 (75) 93 Room Air 09/16/19 00:00 Room Air 09/15/19 23:14 37.0 09/15/19 23:00 68 14 138/90 (106) 93 Room Air 09/15/19 22:00 87 26 135/91 (106) 95 Room Air 09/15/19 21:00 98 11 143/88 (106) 98 Room Air 09/15/19 20:00 36.9 09/15/19 20:00 Room Air 09/15/19 20:00 97 12 130/94 (106) 96 Room Air 09/15/19 19:00 93 14 125/87 (100) 95 Room Air 09/15/19 19:00 93 09/15/19 18:41 96 Room Air 09/15/19 18:00 91 19 131/88 (102) 97 Room Air 09/15/19 17:00 97 13 132/87 (102) 97 Room Air 09/15/19 16:00 36.8 09/15/19 16:00 116 28 126/85 (99) 94 Room Air 09/15/19 16:00 Room Air 09/15/19 15:32 96 Room Air 09/15/19 15:00 84 14 122/86 (98) 95 Room Air 09/15/19 14:30 94 27 121/79 (93) 94 Room Air 09/15/19 14:00 101 26 121/88 (99) 95 Room Air 09/15/19 13:45 107 12 128/88 (101) 94 Room Air 09/15/19 13:30 96 15 125/85 (98) 93 Room Air 09/15/19 13:15 100 14 137/93 (108) 94 Room Air 09/15/19 13:00 105 09/15/19 13:00 99 134/75 (94) Room Air 09/15/19 12:08 Room Air 09/15/19 12:03 94 Room Air 09/15/19 12:00 Room Air 09/15/19 12:00 77 16 126/78 (94) 94 Room Air 09/15/19 11:45 37.8 09/15/19 11:00 71 119/78 (92) 92 Room Air 09/15/19 10:00 98 18 125/80 (95) 94 Room Air 09/15/19 09:00 76 15 132/94 (107) 92 Room Air 09/15/19 08:00 Room Air 09/15/19 08:00 73 28 135/87 (103) 95 Room Air 09/15/19 08:00 36.9 09/15/19 07:00 77 09/15/19 07:00 37.3 09/15/19 07:00 82 9 134/90 (105) 96 Room Air 09/15/19 06:06 67 13 119/94 (102) 94 Room Air 09/15/19 05:09 77 14 127/85 (99) 92 Room Air I & O 09/16/19 07:00 Intake Total 3150 ml Output Total 2200 ml Balance 950 ml Height & Weight Height: 5'9.00" Weight: 173lbs. 0oz. 78.628205az; 28.27 BMI Method:Stated General Appearance: No Apparent Distress, WD/WN, Chronically ill HEENT: PERRL/EOMI, TMs Normal, Normal ENT Inspection, Pharynx Normal, Moist Mucous Membranes Neck: Full Range of Motion, Normal Inspection, Non Tender, Supple, Carotid Bruit Respiratory: Chest Non Tender, Lungs Clear, Normal Breath Sounds, No Accessory Muscle Use, No Respiratory Distress Cardiovascular: Regular Rate, Rhythm, No Edema, No Gallop, No JVD, No Murmur, Normal Peripheral Pulses Capillary Refill: Less Than 3 Seconds Extremity: Normal Capillary Refill, Normal Inspection, Normal Range of Motion, Non Tender, No Calf Tenderness, No Pedal Edema Neurologic/Psychiatric: Alert, Oriented x3, No Motor/Sensory Deficits, Normal Mood/Affect Skin: Normal Color, Warm/Dry Lymphatic: No Adenopathy Results Lab Laboratory Tests 09/14/19 10:15 09/15/19 03:45 09/16/19 03:20 Assessment/Plan Assessment/Plan CP r/o [place] -Hx of stents. Plan is for cardiac cath today Persistent cough -DuoNebs and advair started yesterday Tobacco use CAD -Cardiology following Noncompliance YOGI ULRICH DO Sep 16, 2019 05:00
[2019-09-16] MEDS: RT-ALBUTEROL/IPRATROPIUM 3 ML (DUONEB) VIAL INH SCH ×2 (07:25→12:03)
[2019-09-16] MEDS: ADVAIR HFA 115/21 MCG INHALER 8 GM IH SCH (07:25)
--- NOTE | 2019-09-16 07:53 | Diagnostic Imaging Report ---
Indication: Shortness of breath Portable chest 3:30 AM Heart size and pulmonary vascularity are normal. Lungs are clear. There are no effusions or pneumothoraces. IMPRESSION: No acute abnormalities in the chest Dictated by: Dictated on workstation # [id number]
[2019-09-16] MEDS: ASPIRIN E.C. 81 MG (ECOTRIN) TAB PO SCH (08:33)
[2019-09-16] MEDS: CLOPIDOGREL 75 MG (PLAVIX) TABLET PO SCH (08:33)
[2019-09-16] MEDS: PANTOPRAZOLE 40 MG (PROTONIX) TAB PO SCH (08:33)
[2019-09-16] MEDS ORDERED: PRED10TA22 PO (09:26)
--- NOTE | 2019-09-16 09:27 | Discharge Summary ---
Discharge Summary Hospital Course Was the Problem List Reviewed?: Yes Problems/Dx: (1) Chest pain Status: Acute Qualifiers: Qualified Codes: R07.9 - Chest pain, unspecified (2) Coronary artery disease Status: Acute Qualifiers: Qualified Codes: I25.10 - Atherosclerotic heart disease of [place] coronary artery without angina pectoris Hospital Course Date of Admission: Sep 14, 2019 at 14:42 Admission Diagnosis : Family Physician/Provider: Hayley Mackenzie Aprn Date of Discharge: 09/16/19 Discharge Diagnosis: chest pain with normal cath, smoker, gout left great toe Hospital Course: Hospital Course: Pt had an uneventful hospital course. He was admitted for chest pain and stents placed in [id number], continued to smoke and was not taking Aspirin so he did undergo cardiac catheterization by Dr. Bernard showing no evidence of any critical stenosis so Aspirin. Smoking cessation was counseled and he was discharged and I did treat his left great toe gout with once dose of Solumedrol, Prednisone 20 mg daily and follow up with Hayley Mackenzie in one week. Labs and Pending Lab Test: Laboratory Tests 09/16/19 03:20: White Blood Count 7.9, Red Blood Count 4.55, Hemoglobin 12.6L, Hematocrit 38L, Mean Corpuscular Volume 84, Mean Corpuscular Hemoglobin 28, Mean Corpuscular Hemoglobin Concent 33, Red Cell Distribution Width 14.1, Platelet Count 226, Mean Platelet Volume 10.3, Neutrophils (%) (Auto) 64, Lymphocytes (%) (Auto) 22, Monocytes (%) (Auto) 11, Eosinophils (%) (Auto) 2, Basophils (%) (Auto) 0, Neutrophils # (Auto) 5.1, Lymphocytes # (Auto) 1.8, Monocytes # (Auto) 0.9, Eosinophils # (Auto) 0.2, Basophils # (Auto) 0.0, Sodium Level 139, Potassium Level 3.9, Chloride Level 106, Carbon Dioxide Level 22, Anion Gap 11, Blood Urea Nitrogen 12, Creatinine 0.93, Estimat Glomerular Filtration Rate > 60, BUN/Creatinine Ratio 13, Glucose Level 96, Calcium Level 8.8, Phosphorus Level 4.0, Magnesium Level 1.9 Microbiology 09/14/19 MRSA Screen - Final, Complete MRSA not isolated Home Meds Active Prednisone 10 Mg Tab.ds.pk 20 Mg PO DAILY Take 6 tabs(60mg)daily,decrease by 1 tab(10MG)daily. Metoprolol Succinate 25 Mg Tab.er.24h 25 Mg PO DAILY Hydrocodone/Acetaminophen 5/325mg Tablet (Acetaminophen/Hydrocodone Bitart) 1 Tab Tab 1 Each PO Q8H PRN MDD 10 3 Days Hydrocodone/Acetaminophen 5/325mg Tablet (Acetaminophen/Hydrocodone Bitart) 1 Each Tablet 1-2 Tab PO Q4-6HR PRN PRN PAIN Cephalexin 500 Mg Capsule 1 Cap PO TID Reported Omeprazole 20 Mg Tablet.dr 20 Mg PO DAILY Creon Dr 12,000 Units Capsule (Lipase/Protease/Amylase) 1 Each Capsule.dr 1 Each PO TID Allopurinol 300 Mg Tablet 300 Mg PO DAILY Aspir 81 (Aspirin) 81 Mg Tablet.dr 81 Mg PO DAILY Lisinopril 10 Mg Tablet 10 Mg PO DAILY Reglan (Metoclopramide HCl) 10 Mg Tablet 10 Mg PO QID Nitrostat (Nitroglycerin) 0.4 Mg Tab.subl 0.4 Mg SL PRN Lopressor (Metoprolol Tartrate) 50 Mg Tablet 50 Mg PO DAILY Gabapentin 300 Mg Capsule 300 Mg PO TID Carafate (Sucralfate) 1 Gm Tablet 1 Gm PO QID Lipitor (Atorvastatin Calcium) 40 Mg Tablet 40 Mg PO HS Cymbalta (Duloxetine HCl) 30 Mg Capsule.dr 30 Mg PO DAILY Protonix (Pantoprazole Sodium) 40 Mg Tablet.dr 40 Mg PO DAILY Pepcid (Famotidine) 20 Mg Tablet 20 Mg PO BID Diazepam 5 Mg Tablet 5 Mg PO PRN Zofran (Ondansetron HCl) 4 Mg Tab 4 Mg PO PRN Assessment/Pt Instructions CHC 1 week Discharge Planning: <30 minutes discharge planning Discharge Instructions Discharge Diet: No Restrictions Activity as Tolerated: Yes Discharge Physical Examination Vital Signs Vital Signs Date Time Temp Pulse Resp B/P (MAP) Pulse Ox O2 Delivery O2 Flow Rate FiO2 09/16/19 09:00 96 15 134/99 (111) 95 Room Air 09/16/19 07:18 37.4 General Appearance: No Apparent Distress, WD/WN Allergies: Coded Allergies: NSAIDS (Non-Steroidal Anti-Inflamma (Verified Allergy, Intermediate, KIDNEY FUNCTION, 06/19/17) droperidol (Verified Allergy, Intermediate, HYPERACTIVITY, TACHYCARDIA, 06/19/17) fentanyl (Verified Allergy, Unknown, 06/19/17) prochlorperazine (Verified Allergy, Unknown, 06/19/17) Discharge Summary Date of Admission Sep 14, 2019 at 14:42 Date of Discharge Discharge Date: Sep 16, 2019 Admission Diagnosis Assessment: Unstable angina Smoker CAD previous stents 2012 2013 Non-compliance Solo kidney Plan: Cath tomorrow IVF to prep for IV contrast due to solo kidney Discharge Diagnosis Assessment: Unstable angina Smoker CAD previous stents 2012 2013 Non-compliance Solo kidney Plan: Cath today IVF to prep for IV contrast due to solo kidney (1) Chest pain Status: Acute Qualifiers: Qualified Codes: R07.9 - Chest pain, unspecified (2) Coronary artery disease Status: Acute Qualifiers: Qualified Codes: I25.10 - Atherosclerotic heart disease of [place] coronary artery without angina pectoris Clinical Quality Measures DVT/VTE Risk/Contraindication: Risk Factor Score Per Nursin RFS Level Per Nursing on Admit: 4+=Very High JOSÉ MIGUEL JIMÉNEZ DO Sep 16, 2019 09:27
[2019-09-16] MEDS ORDERED: methylPREDNISolone 40 MG/ML (Solu-MEDROL) VIAL IV NR (09:30)
--- NOTE | 2019-09-16 14:00 | NUR ---
THIS NURSE EDUCATED PT ON DISCHARGE INSTRUCTIONS AND GROIN SITE CARE. PT STATED UNDERSTANDING. PT TAKEN DOWN VIA WHEELCHAIR BY NURSE WITH BELONGINGS.
--- OUTSIDE RECORDS SUMMARY | 2019-09-20 19:14 | XMS REPORT ---
Author Author Alden CARRANZA Organization [facility] Address [address] [place] [address] Care Team Providers Care Manager Residential Name Role Phone CAREY CARRANZA Unavailable PROBLEMS Type Condition ICD9-CM Code ZEL47-VD Code Onset Dates Condition S tatus SNOMED Code Problem Abdominal pain, epigastric R10.13 Aug, 0 15605441 Problem Fever R50.9 16 Dec, 2011 0 6489250 06 Problem Kidney stones N20.0 16 Dec, 2011 0 955 39422 Problem Chest pain R07.9 Aug, 0 166014 09 Problem URI (upper respiratory infection) J06.9 Sep 0 93311754 Problem Nephrolithiasis N20.0 Active 9557 0007 Problem Fever 780.60 16 Dec, 2011 0 5638305 06 Problem Essential hypertension I10 Active 02301339 Problem GERD (gastroesophageal reflux disease) 530.81 1 0 Jan, 2015 0 127240713 Problem Nausea with vomiting 787.01 Dec, 0 24402387 Problem Abdominal pain, epigastric 789.06 Aug, 0 00320506 Problem Acute pancreatitis 577.0 Oct, 0 121883148 Problem Hyperventilation 786.01 Aug, 0 75617171 Problem Left flank pain R10.9 05 Feb, 2013 0 1 75085672 Problem Hydronephrosis, left N13.30 14 Oct, 2012 0 44599214 Problem Hallux rigidus, right foot 735.2 November, 0 5317791 Problem Status post myocardial infarction I25.2 05 Jun 0 3158385 Problem Status post myocardial infarction 412 05 Jun 0 2970478 Problem Bunion, left foot 727.1 05 Jun, 2017 0 777309069 Problem GERD (gastroesophageal reflux disease) K21.9 1 0 Jan, 2015 0 047367676 Problem HTN (hypertension) I10 02 Feb, 2018 0 59295697 Problem Tobacco use Z72.0 Jun, 0 94695 3000 Problem Anxiety F41.9 Feb, 0 8209203 2 Problem Non-STEMI (non-ST elevated myocardial infarction) I21.4 Mar, 0 326675370 Problem Sprain of lateral collateral ligament of left knee 844.0 Oct, 0 26897422 Problem Sprain of medial collateral ligament of left knee 844.1 Oct, 0 48502147 Problem Sprain of lateral collateral ligament of left knee S83.422A Oct, 0 53997228 Problem Sprain of tibiofibular ligament of left ankle 845.03 Oct, 0 03411792996027611 Problem Sprain of medial collateral ligament of left knee S83.412A Oct, 0 15720799 Problem Recurrent pancreatitis 577.1 May, 0 257441570 Problem Right upper quadrant pain R10.11 Dec, 0 761297031 Problem Sprain of tibiofibular ligament of left ankle S93. 432A Oct, 0 06489869534108516 Problem TFCC (triangular fibrocartilage complex) injury S69.80XA Jan, 0 Problem TFCC (triangular fibrocartilage complex) injury 718.03 Jan, 0 486053681 Problem Old complete tear of anterior cruciate ligament of lef t knee M23.52 Oct, 0 Problem Old complete tear of anterior cruciate ligament of lef t knee 717.83 Oct, 0 803327104 Problem Acute pancreatitis K85.90 Oct, 0 337409333 Problem Nausea with vomiting R11.2 Dec, 0 34017188 Problem Testosterone deficiency E34.9 Aug, 0 25582874 Problem Testosterone deficiency 259.9 Aug, 0 47856171 Problem Single kidney Z90.5 Active 685997 007 Problem HTN (hypertension) 401.9 Feb, 0 87804552 Problem Bunion, left foot M21.612 05 Jun, 2017 0 165884136 Problem Tobacco use 305.1 Jun, 0 89925 3000 Problem Generalized abdominal pain R10.84 Act bridget 311007707 Problem Anxiety 300.00 Feb, 0 6520327 2 Problem Acute pancreatitis, unspecif ied complication status, unspecified pancreatitis type K85.90 Active 998519376 Problem URI (upper respiratory infection) 465.9 Sep 0 00494832 Problem History of LA (myocardial infarction) I25.2 Active 602001323 Problem Fluid level behind tympanic membrane of both ears H65.93 Active 752597705 Problem Chronic fatigue R53.82 Active 8422 9001 Problem Dizziness R42 Active 837462029 Problem Non-STEMI (non-ST elevated myocardial infarction) 410.70 Mar, 0 52716165 Problem Hallux rigidus, right foot M20.21 November, 0 4063741 Problem TB skin/subcutaneous A18.4 Active 896078725 Problem Recurrent pancreatitis K86.1 May, 0 766112489 Problem Hyperventilation R06.4 Aug, 0 13766805 Problem Right upper quadrant pain 789.01 Dec, 0 960302123 Problem Hydronephrosis, left 591 14 Oct, 2012 0 70125486 Problem Left flank pain 789.09 Feb, 0 1 26641809 Problem Urinary frequency R35.0 Active 16 5601365 Problem Kidney stones 592.0 16 Dec, 2011 0 955 96245 Problem Urinary urgency R39.15 Active 7508 8002 Problem Nephrolithiasis 592.0 14 Oct, 2012 0 9 9400722 Problem Weight loss R63.4 Active 29006821 Problem Dizziness R42 Active 134451032 Problem Chest pain 786.50 Aug, 0 883793 09 ALLERGIES No Information ENCOUNTERS Encounter Location Date Diagnosis [facility] [address] [place] [address] Dec, Visit for TB skin test Z11.[address] [address] November, Visit for TB skin test Z11.[address] [address] November, Acute pain of right knee M25.561 ; Swell ing of right knee joint M25.461 and Encounter for observed medication taking Z02.[address] [address] Oct, [address] [address] Oct, [facility] [address] [address] Oct, Injury of right wrist, initial encounter S69.91XA and Right forearm pain M79.631 [facility] [address] [address] Sep, [facility] [address] [address] Sep, [facility] [address] [address] Sep, [facility] [address] [place] [address] Sep, [facility] [address] [place] [address] Sep, [facility] [address] [address] Sep, [facility] [address] [place] [address] Sep, [facility] [address] [place] [address] Sep, [facility] [address] [place] [address] Aug, [address] [address] Aug, Dizziness R42 ; Urinary urgency R39.15 ; Chronic fatigue R53.82 ; Fluid level behind tympanic membrane of both ears H65.93 ; Weight loss R63.4 and Urinary frequency R35.0 [facility] [address] [address] Aug, [facility] [address] [address] Aug, [facility] [address] [address] Aug, Dysuria R30.0 ; Dehydration E86.0 ; Diar radha, unspecified type R19.7 ; Acute prostatitis N41.0 and Non-intractable vomiting with nausea, unspecified vomiting type R11.2 [facility] [address] [address] Aug, [address] [address] Aug, [facility] [address] [facility] [id number] [address] [place] [address] Aug, [address] [address] Aug, Thyroid disorder E07.9 ; Nausea R11.0 an d Tremor R25.1 [facility] [address] [address] Aug, [address] [address] Aug, [address] [address] Aug, Low TSH level R79.89 and Contusion of ri ght clavicle, initial encounter S40.011A [facility] [address] [address] Aug, [facility] [address] [facility] [place] [address] Aug, [facility] [address] [facility] [id number] [address] [place] [address] Jul, [facility] [address] [facility] [id number] [address] [place] [phone] Jul, [facility] [address] [facility] [id number] [address] [place] [address] Jun, [facility] [address] [facility] [id number] [address] [place] [phone] Jun, [facility] [address] [facility] [id number] [address] [place] [phone] Jun, [facility] [address] [facility] [id number] [address] [place] [phone] Jun, [facility] [address] [facility] [id number] [address] [place] [phone] Jun, [facility] [address] [facility] [id number] [address] [place] [phone] Jun, [facility] [address] [facility] [id number] [address] [place] [phone] Jun, [facility] [address] [facility] [id number] [address] [place] [phone] Jun, [facility] [address] [facility] [id number] [address] [place] [phone] May, IMMUNIZATIONS No Known Immunizations SOCIAL HISTORY Never Assessed REASON FOR VISIT Controlled fill 10/06 PLAN OF CARE VITAL SIGNS MEDICATIONS Medication Instructions Dosage Frequency Start Date End Date Duration S tatus Ultram 50 MG Orally every 6 hrs 1 tablet as needed 6h Sep, 28 days Active RESULTS No Results PROCEDURES No Known procedures INSTRUCTIONS MEDICATIONS ADMINISTERED No Known Medications MEDICAL (GENERAL) HISTORY Type Description Date Medical History Hydronephrosis, left Medical History Testosterone Deficiency Medical History GERD Medical History hypertension Medical History anxiety Medical History nephrolithiasis, left Medical History pancreatitis Medical History Non-STEMI Surgical History colonoscopy 02/10/2015, 5 Surgical History EGD 2017 Surgical History right nephrectomy Surgical History cholecystectomy
--- OUTSIDE RECORDS SUMMARY | 2019-09-20 19:14 | XMS REPORT | Clinical Summary ---
Author Author [facility] Organization [facility] Address Unknown Phone Unavailable Care Team Providers Care Crystal Slicer Name Role Phone PCP Unavailable Allergies Not on File Medications Not on file Active Problems Not on file Social History Date Tobacco Use Types Packs/Day Years Used Never Assessed Sex Assigned at Date Recorded Not on file Industry Job Start Date Occupation Not on file Not on file Not on file Travel End Travel History Travel Start No recent travel history available. Last Filed Vital Signs Not on file Plan of Treatment Not on file Results Not on filefrom Last 3 Months
--- OUTSIDE RECORDS SUMMARY | 2019-09-20 19:14 | XMS REPORT | Encounter Summary ---
Author Author [facility] Address Unknown Phone Unavailable Care Team Providers Care Doctor Podiatric Medicine Name Role Phone PCP Unavailable Encounter Details Care Team Description Date Type Department Malika Ocasio MD [address] [facility] [address] [place] [address] [phone] 10/08/2000 [facility] [address] [place] [address] Social History Date Tobacco Use Types Packs/Day Years Used Never Assessed Sex Assigned at Date Recorded Not on file Industry Job Start Date Occupation Not on file Not on file Not on file Travel End Travel History Travel Start No recent travel history available. documented as of this encounter Miscellaneous Notes * Operative Note - ProviderMadi MD - 09/19/2013 9:25 PM SUPPLEMENTAL MANAGER Report OPR/mjp/[id number] [facility] Name: ALDEN REYES MRN/Unit #: [id number] Attending Physician: MALIKA OCASIO MD Referring Physician: REFERRING NO Date of Surgery: 10-08-00 PREOPERATIVE DIAGNOSIS: 1. Acute abdomen, right lower quadrant - probable appendicitis. POSTOPERATIVE DIAGNOSIS: 1. Acute abdomen, right lower quadrant - infarcted, torsed sigmoid colon, epiploic appendage in right lower quadrant. PROCEDURE: 1. Diagnostic laparoscopy. 2. Laparoscopic appendectomy. 3. Laparoscopic resection of infarcted sigmoid colon, epiploic appendage. Surgeon: Paulino Ocasio MD Marketing Automation Specialist: DAVIS Curry Estimated blood loss: Minimal Counts: Correct Tolerated procedure well Anesthesia: General with oral endotracheal tube FINDINGS: Some serous fluid within the abdomen and obvious necrotic, infarcted bit of fat which appears to be an infarcted epiploic appendage and not associated with surrounding colon inflammation, but interestingly, laying across the area of the appendix in the right lower quadrant. There is no evidence of hernia, no evidence of terminal ileitis or other inflammatory process. DESCRIPTION: After satisfactory prep a small radial incision was made in the inferior portion of the umbilicus. Hany catheter was introduced under direct visualization; insufflation with carbon dioxide. A 10/12 Innerdyne was placed right subcostal as well as left lower quadrant 5 mm port. The above findings were noted. The appendix was divided at its base with the Endo MACIEL blue with vascular loads across the mesoappendix. The obvious inflammatory mass, induration, and surrounding inflammation, but not inflammation or obvious diverticular changes of the colon, were identified. Using a vascular load, the epiploic appendage was divided close to the bowel and was removed in an EndoCatch similar to the manner the appendix was removed. Hemostasis was excellent. All counts were correct. The ports were removed under direct vision. The umbilical fascia was closed with 0 Ethibond. Subcutaneous tissues were irrigated. 0.25% Marcaine field block. Subcuticular 4-0 Vicryl. Steri-tapes were placed. The patient tolerated the procedure well and left the operating room in satisfactory condition. Malika Della Ocasio M.D. cc: Marco Ware MD Name: ALDEN REYES Room-Bed/Loc/Type: 214-01/MSB/OB Admit Date: 10/08/2000 OPERATION / PROCEDURE NOTE 1 OF 2 LEMENTAL MANAGER documented in this encounter Plan of Treatment Not on filedocumented as of this encounter Procedures Comments Procedure Name Priority Date/Time Associated Diag nosis DIFFERENTIAL Routine 10/07/2000 8:10 PM SUPPLEMENTAL MANAGER CBC AND DIFF (MANUAL DIFF Routine 10/07/2000 IF NECESSARY) 8:10 PM SUPPLEMENTAL MANAGER documented in this encounter Results * DIFFERENTIAL (10/07/2000 8:10 PM SUPPLEMENTAL MANAGER) % Neutrophils 61 45 - 78 % SUNQUEST %Lymphocytes 26 15 - 47 % SUNQUEST %Monocytes 10 0 - 12 % SUNQUEST # Granulocytes 5.5 1.7 - 6.8 TH/UL SUNQUEST # Lymphocytes 2.3 1.0 - 3.3 TH/UL SUNQUEST # Monocytes 0.9 0.2 - 0.9 TH/UL SUNQUEST %Eosinophils 3 0 - 7 % SUNQUEST %Basophils 0 0 - 2 % SUNQUEST # Eosinophils 0.3 0.0 - 0.4 TH/UL SUNQUEST # Basophils 0.0 0.0 - 0.2 TH/UL SUNQUEST Specimen Blood Performing Organization Address [facility] Ph one Number [id number] [place], [place] [address] SUNQUEST * CBC and Diff (manual diff if necessary) (10/07/2000 8:10 PM SUPPLEMENTAL MANAGER) WBC 9.0 4.0 - 11.0 TH/UL SUNQUEST RBC 5.36 4.31 - 5.84 MIL/UL SUNQUEST Hemoglobin 15.4 13.0 - 17.0 G/DL SUNQUEST Hematocrit 45 40 - 50 % SUNQUEST MCV 83 80 - 99 FL SUNQUEST MCH 29 27 - 34 PG SUNQUEST MCHC 35 32 - 36 % SUNQUEST RDW 12.6 <14.5 % SUNQUEST Platelet Count 212 140 - 400 TH/UL SUNQUEST Specimen Blood Performing Organization Address [facility] one Number [facility] [address] [place] [address] 11 SUNQUEST documented in this encounter Visit Diagnoses Not on filedocumented in this encounter
--- OUTSIDE RECORDS SUMMARY | 2019-09-20 19:14 | XMS REPORT ---
Author Author Alden CARRANZA Organization [facility] Address [address] [place] [address] Care Team Providers Care Casino Investigator Name Role Phone CAREY CARRANZA Unavailable PROBLEMS Type Condition ICD9-CM Code HEG50-UT Code Onset Dates Condition S tatus SNOMED Code Problem Abdominal pain, epigastric R10.13 Aug, 0 73674159 Problem Fever R50.9 16 Dec, 2011 0 7467911 06 Problem Kidney stones N20.0 16 Dec, 2011 0 955 57787 Problem Chest pain R07.9 Aug, 0 692913 09 Problem URI (upper respiratory infection) J06.9 Sep 0 31024657 Problem Nephrolithiasis N20.0 Active 9557 0007 Problem Fever 780.60 16 Dec, 2011 0 3083060 06 Problem Essential hypertension I10 Active 58247829 Problem GERD (gastroesophageal reflux disease) 530.81 1 0 Jan, 2015 0 394202850 Problem Nausea with vomiting 787.01 Dec, 0 39584557 Problem Abdominal pain, epigastric 789.06 Aug, 0 17408336 Problem Acute pancreatitis 577.0 Oct, 0 551403884 Problem Hyperventilation 786.01 Aug, 0 40352485 Problem Left flank pain R10.9 05 Feb, 2013 0 1 67308410 Problem Hydronephrosis, left N13.30 14 Oct, 2012 0 71283555 Problem Hallux rigidus, right foot 735.2 November, 0 7981317 Problem Status post myocardial infarction I25.2 05 Jun 0 3187143 Problem Status post myocardial infarction 412 05 Jun 0 0449733 Problem Bunion, left foot 727.1 05 Jun, 2017 0 718323962 Problem GERD (gastroesophageal reflux disease) K21.9 1 0 Jan, 2015 0 031958104 Problem HTN (hypertension) I10 02 Feb, 2018 0 35180210 Problem Tobacco use Z72.0 Jun, 0 12729 3000 Problem Anxiety F41.9 Feb, 0 6238938 2 Problem Non-STEMI (non-ST elevated myocardial infarction) I21.4 Mar, 0 901261802 Problem Sprain of lateral collateral ligament of left knee 844.0 Oct, 0 29305950 Problem Sprain of medial collateral ligament of left knee 844.1 Oct, 0 45105823 Problem Sprain of lateral collateral ligament of left knee S83.422A Oct, 0 79679567 Problem Sprain of tibiofibular ligament of left ankle 845.03 Oct, 0 71077415454557037 Problem Sprain of medial collateral ligament of left knee S83.412A Oct, 0 47890964 Problem Recurrent pancreatitis 577.1 May, 0 754999177 Problem Right upper quadrant pain R10.11 Dec, 0 039171528 Problem Sprain of tibiofibular ligament of left ankle S93. 432A Oct, 0 02198622183603032 Problem TFCC (triangular fibrocartilage complex) injury S69.80XA Jan, 0 Problem TFCC (triangular fibrocartilage complex) injury 718.03 Jan, 0 301402997 Problem Old complete tear of anterior cruciate ligament of lef t knee M23.52 Oct, 0 Problem Old complete tear of anterior cruciate ligament of lef t knee 717.83 Oct, 0 099193588 Problem Acute pancreatitis K85.90 Oct, 0 944263775 Problem Nausea with vomiting R11.2 Dec, 0 73422740 Problem Testosterone deficiency E34.9 Aug, 0 25595788 Problem Testosterone deficiency 259.9 Aug, 0 31361639 Problem Single kidney Z90.5 Active 933892 007 Problem HTN (hypertension) 401.9 Feb, 0 30958633 Problem Bunion, left foot M21.612 05 Jun, 2017 0 318342880 Problem Tobacco use 305.1 Jun, 0 26578 3000 Problem Generalized abdominal pain R10.84 Act bridget 077969782 Problem Anxiety 300.00 Feb, 0 5862756 2 Problem Acute pancreatitis, unspecif ied complication status, unspecified pancreatitis type K85.90 Active 219885224 Problem URI (upper respiratory infection) 465.9 Sep 0 68256668 Problem History of UT (myocardial infarction) I25.2 Active 669437555 Problem Fluid level behind tympanic membrane of both ears H65.93 Active 837133388 Problem Chronic fatigue R53.82 Active 8422 9001 Problem Dizziness R42 Active 671301131 Problem Non-STEMI (non-ST elevated myocardial infarction) 410.70 Mar, 0 93327044 Problem Hallux rigidus, right foot M20.21 November, 0 7280041 Problem TB skin/subcutaneous A18.4 Active 944567861 Problem Recurrent pancreatitis K86.1 May, 0 035491800 Problem Hyperventilation R06.4 Aug, 0 61261185 Problem Right upper quadrant pain 789.01 Dec, 0 850066942 Problem Hydronephrosis, left 591 14 Oct, 2012 0 41267796 Problem Left flank pain 789.09 Feb, 0 1 45989795 Problem Urinary frequency R35.0 Active 16 5687382 Problem Kidney stones 592.0 16 Dec, 2011 0 955 07305 Problem Urinary urgency R39.15 Active 7508 8002 Problem Nephrolithiasis 592.0 14 Oct, 2012 0 9 7347652 Problem Weight loss R63.4 Active 31139974 Problem Dizziness R42 Active 545487656 Problem Chest pain 786.50 Aug, 0 703055 09 ALLERGIES No Information ENCOUNTERS Encounter Location Date Diagnosis [facility] IN [facility] [address] [place] [address] Dec, Visit for TB skin test Z11.[address] [address] November, Visit for TB skin test Z11.[address] [address] November, Acute pain of right knee M25.561 ; Swell ing of right knee joint M25.461 and Encounter for observed medication taking Z02.[address] [address] Oct, [address] [address] Oct, [facility] [place] [place] [address] [address] Oct, Injury of right wrist, initial encounter S69.91XA and Right forearm pain M79.631 [facility] [place] [address] [address] Sep, [facility] [address] [address] Sep, [facility] [address] [address] Sep, [facility] [place] [address] [place] [address] Sep, [facility] [place] [address] [place] [address] Sep, [facility] [address] [address] Sep, [facility] [place] [address] [place] [address] Sep, [facility] [place] [address] [place] [address] Sep, [facility] [place] [address] [place] [address] Aug, [address] [address] Aug, Dizziness R42 ; Urinary urgency R39.15 ; Chronic fatigue R53.82 ; Fluid level behind tympanic membrane of both ears H65.93 ; Weight loss R63.4 and Urinary frequency R35.0 [facility] [address] [address] Aug, [facility] [address] [address] Aug, [facility] [address] [address] Aug, Dysuria R30.0 ; Dehydration E86.0 ; Diar radha, unspecified type R19.7 ; Acute prostatitis N41.0 and Non-intractable vomiting with nausea, unspecified vomiting type R11.2 [facility] [address] [address] Aug, [address] [address] Aug, [facility] [address] [facility] [id number] [address] [place] [address] Aug, [address] [address] Aug, Thyroid disorder E07.9 ; Nausea R11.0 an d Tremor R25.1 [facility] [address] [address] Aug, [address] [address] Aug, [address] [address] Aug, Low TSH level R79.89 and Contusion of ri ght clavicle, initial encounter S40.011A [facility] [address] [address] Aug, [facility] [address] [place] [place] [address] Aug, [facility] [address] [facility] [id number] [address] [place] [address] Jul, [facility] [address] [facility] [id number] [address] [place] [address] Jul, [facility] [address] [facility] [id number] [address] [place] [address] Jun, [facility] [address] [facility] [id number] [address] [place] [address] Jun, [facility] [address] [facility] [id number] [address] [place] [address] Jun, [facility] [address] [facility] [id number] [address] [place] [address] Jun, [facility] [address] [facility] [id number] [address] [place] [address] Jun, [facility] [address] [facility] [id number] [address] [place] [address] Jun, [facility] [address] [facility] [id number] [address] [place] [address] Jun, [facility] [address] [facility] [id number] [address] [place] [address] Jun, [facility] [address] [facility] [id number] [address] [place] [address] May, IMMUNIZATIONS No Known Immunizations SOCIAL HISTORY Never Assessed REASON FOR VISIT Controlled fill 10/06 PLAN OF CARE VITAL SIGNS MEDICATIONS Medication Instructions Dosage Frequency Start Date End Date Duration S jay Clonazepam 1 MG Orally Once a day 1 tablet 24h 28 da ys Active RESULTS No Results PROCEDURES No Known procedures INSTRUCTIONS MEDICATIONS ADMINISTERED No Known Medications MEDICAL (GENERAL) HISTORY Type Description Date Medical History Hydronephrosis, left Medical History Testosterone Deficiency Medical History GERD Medical History hypertension Medical History anxiety Medical History nephrolithiasis, left Medical History pancreatitis Medical History Non-STEMI Surgical History colonoscopy 02/10/2015, 5 Surgical History EGD 2016 Surgical History right nephrectomy Surgical History cholecystectomy
--- OUTSIDE RECORDS SUMMARY | 2019-09-20 19:14 | XMS REPORT | Clinical Summary ---
Author Author [facility] Address Unknown Phone Unavailable Care Team Providers Care Blast Furnace Keeper Helper Name Role Phone Maco Snider MD Unavailable [...] in the electronic medical record. If you d o not see the information that you expected, contact Release of Information in [facility] Information Management department at [phone] for further assistan ce in locating additional records[facility] Allergies Comments Active Allergy Reactions Severity [...] Overview: History of bilateral UPJO s/p open pyel oplasties in 1981. Recurrent right flank pain followed with serial NM satish l scans and CT's. Stable diminished right renal function (24%). Underwent cystoscopy with right ureteroscopy on 03/16/11 with widely patent UPJ noted . Had nephrostomy tube placed which impro oralia his pain. Had nephrectomy for pain on 07/01/12. 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 Last Assessment & Plan: Patient doing well except for periumbil ical pain. He did do a bunch of lifting around the time of his pain ons et. No hernia or hematoma. Mild discomfort. -- limit activities and lifting -- Percocet Rx given to patient -- F/U 3 weeks for symptom check -- if symptoms persist, he may need wendi ging with CT scan Immunizations Name Administration Dates Next Due FLU VACCINE >3YO 05/20/2012 (Preservative [...] 1/2 pack daily from 1 pack daily Drinks/Week oz/Week Comments Alcohol Use rarely No Sex Assigned at Date Recorded Not on file Industry Job Start Date Occupation Not on file Not on file Not on file Travel End Travel History Travel Start No recent travel history available. Last Filed Vital Signs Reading Time Taken Comments Vital Sign 145/101 03/18/2013 11:30 PM CDT Blood Pressure 80 03/18/2013 3:37 PM CDT Pulse 36.9 C (98.4 F) 03/18/2013 3:37 PM CDT Temperature 14 08/20/2011 10:54 PM SOFTLINES SUPERVISOR Respiratory Rate 97% 03/18/2013 11:30 PM CDT Oxygen Saturation - - Inhaled Oxygen Concentration 93.7 kg (206 lb 9.1 oz) 03/18/2013 3:37 PM CDT Weight 177.8 cm (5' 10") 11/20/2012 8:02 AM CDT Height 29.64 11/20/2012 8:02 AM CDT Body Mass Index Plan of Treatment Health Maintenance Due Date Last Done Comments DTAP/TDAP VACCINES (1 - 1981 Tdap) HIV SCREENING 1985 PHYSICAL (COMPREHENSIVE) 1988 EXAM INFLUENZA VACCINE 02/19/2019 05/20/2012 Results Not on filefrom Last 3 Months Advance Directives Date Inactivated Comments Code Status Date Activated 11/21/2012 2:46 PM Full Code 11/20/2012 5:17 AM Provider has discussed Code Status Yes w/Patient or Family? 07/04/2012 2:34 PM Full Code 07/01/2012 7:58 PM Provider has discussed Code Status No, more discussi on w/Patient or Family? needed 06/19/2012 10:31 PM Full Code 06/18/2012 9:30 PM Provider has discussed Code Status Yes w/Patient or Family? 05/22/2012 5:00 AM Full Code 05/19/2012 2:52 PM Provider has discussed Code Status No, more discussi on w/Patient or Family? needed
--- OUTSIDE RECORDS SUMMARY | 2019-09-20 19:14 | XMS REPORT | Encounter Summary ---
Author Author [facility] Organization [facility] Address Unknown Phone Unavailable Care Team Providers Care Club Concierge Name Role Phone PCP Unavailable Encounter Details Care Team Description Date Type Department Raman Benton DO [address] [place] [address] [phone] 08/07/[address] [address] Social History Date Tobacco Use Types Packs/Day Years Used Never Assessed Sex Assigned at Date Recorded Not on file Industry Job Start Date Occupation Not on file Not on file Not on file Travel End Travel History Travel Start No recent travel history available. documented as of this encounter Plan of Treatment Not on filedocumented as of this encounter Procedures Comments Procedure Name Priority Date/Time Associated Diag nosis CT HEAD WO CONTRAST Routine 08/07/2000 5:00 PM MOTOR ROUTE CARRIER XR ELBOW MIN 3 VIEWS LEFT Routine 08/07/2000 4:44 PM MOTOR ROUTE CARRIER documented in this encounter Results * CT Head wo contrast (08/07/2000 5:00 PM MOTOR ROUTE CARRIER) Specimen Narrative Performed At Rodriguez CHILEL/sivakumar/[id number] [facility] Name: ALDEN REYES Date of : 1970 Age: 29Y Room-Bed/Loca tion/Type: -//EB Check-In #: [id number] Attending Physician: Levon BENTON DO Procedure: CT HEAD W/O CONTRAST Reason for Exam: 784.0;HEADACHE Requested by: Levon BENTON Film Jacket #: [id number] Order Date: 08/07/2000 16:08 Exam Date: 08/07/2000 Exam: CT head without contrast Reason for Exam: Headaches, fell justyn kward and hit head, dizziness Multiple axial CT images were obtained through the head without intravenous contrast. The ventricular system is normal in siz e and configuration without evidence of mass effect or midline shift. Ther e is no evidence of hemorrhage or infarct. The orbits and paranasal sin uses are unremarkable. There is no evidence of fracture. IMPRESSION: Negative CT head. Electronically Authenticated by Proxy: Alden Dooley M.D. 08/08/2000 10:16:06 Baron Theresa D.O. T: 001 18:23:34 cc: Name: ALDEN REYES Room-Bed /Loc/Type: -//EB Admit D ate: 08/07/2000 MEDICAL IMAGING CONSULTATION 1 OF Name: ALDEN REYES Room-Bed /Loc/Type: -/ /EB Admit Date: 08/07/2000 MEDICAL IMAGING CONSULTATION 2 OF 1 Procedure Note Interface, Rad Conversion - 09/21/2013 2:23 PM MOTOR ROUTE CARRIER Report RAD/gl/[id number] [facility] Name: ALDEN REYES Date of : 1970 Age: 29Y Room-Bed/Location/Type: -//EB Check-In #: [id number] Attending Physician: Levon BENTON DO Procedure: CT HEAD W/O CONTRAST Reason for Exam: 784.0;HEADACHE Requested by: Levon BENTON Film Jacket #: [id number] Order Date: 08/07/2000 16:08 Exam Date: 08/07/2000 Exam: CT head without contrast Reason for Exam: Headaches, fell backward and hit head, dizziness Multiple axial CT images were obtained through the head without intravenous contrast. The ventricular system is normal in size and configuration without evidence of mass effect or midline shift. There is no evidence of hemorrhage or infarct. The orbits and paranasal sinuses are unremarkable. There is no evidence of fracture. IMPRESSION: Negative CT head. Electronically Authenticated by Proxy: Alden Dooley M.D. 08/08/2000 10:16:06 Baron Theresa D.O. cc: Name: ALDEN REYES Room-Bed/Loc/Type: -//EB Admit Date: 08/07/2000 MEDICAL IMAGING CONSULTATION 1 OF 1 Name: ALDEN REYES Room-Bed/Loc/Type: -/ /EB Admit Date: 08/07/2000 MEDICAL IMAGING CONSULTATION 2 OF 1 1 Performing Organization Address City/State/Zipcode Ph one Number [place] * XR Elbow min 3 views left (08/07/2000 4:44 PM MOTOR ROUTE CARRIER) Specimen Narrative Performed At Report [facility]Y RAD/gl/[id number] [facility] Name: ALDEN REYES Date of : 1970 Age: 29Y Room-Bed/Loca tion/Type: -//EB Check-In #: [id number] Attending Physician: Levon BENTON DO Procedure: DX ELBOW 3 VIEWS Reason for Exam: 719.42;JOINT PAIN Requested by: Levon BENTON Film Jacket #: [id number] Order Date: 08/07/2000 16:09 Exam Date: 08/07/2000 Exam: Left elbow three views Reason for Exam: Fell at work, hit e lbow Three views of the left elbow demonstra apolonia no evidence of fracture or dislocation. Soft tissues appear norm al. IMPRESSION: Negative left elbow. Electronically Authenticated by Proxy: Alden Dooley M.D. 08/08/2000 10:16:09 Baron Theresa D.O. T: 001 18:26:59 cc: Name: ALDEN REYES Room-Bed /Loc/Type: -//EB Admit D ate: 08/07/2000 MEDICAL IMAGING CONSULTATION 1 OF Name: ALDEN REYES Room-Bed /Loc/Type: -/ /EB Admit Date: 08/07/2000 MEDICAL IMAGING CONSULTATION 2 OF 1 1 Procedure Note Interface, Rad Conversion - 09/21/2013 2:23 PM MOTOR ROUTE CARRIER Report RAD/gl/[id number] [facility] Name: ALDEN REYES Date of : 1970 Age: 29Y Room-Bed/Location/Type: -//EB Check-In #: [id number] Attending Physician: Levon BENTON DO Procedure: DX ELBOW 3 VIEWS Reason for Exam: 719.42;JOINT PAIN Requested by: Levon BENTON Film Jacket #: [id number] Order Date: 08/07/2000 16:09 Exam Date: 08/07/2000 Exam: Left elbow three views Reason for Exam: Fell at work, hit elbow Three views of the left elbow demonstrated no evidence of fracture or dislocation. Soft tissues appear normal. IMPRESSION: Negative left elbow. Electronically Authenticated by Proxy: Alden Dooley M.D. 08/08/2000 10:16:09 Baron Theresa D.O. cc: Name: ALDEN REYES Room-Bed/Loc/Type: -//EB Admit Date: 08/07/2000 MEDICAL IMAGING CONSULTATION 1 OF Name: ALEDN REYES Room-Bed/Loc/Type: -/ /EB Admit Date: 08/07/2000 MEDICAL IMAGING CONSULTATION 2 OF 1 1 Performing Organization Address City/State/Zipcode Ph one Number [email or web address] documented in this encounter Visit Diagnoses Not on filedocumented in this encounter
--- OUTSIDE RECORDS SUMMARY | 2019-09-20 19:14 | XMS REPORT ---
Author Author Alden CARRANZA Organization [facility] Address [address] [place] [address] Care Team Providers Care Cook Vegetable Name Role Phone CAREY CARRANZA Unavailable PROBLEMS Type Condition ICD9-CM Code LEB83-FS Code Onset Dates Condition S tatus SNOMED Code Problem Abdominal pain, epigastric R10.13 Aug, 0 55593868 Problem Fever R50.9 16 Dec, 2011 0 1779411 06 Problem Kidney stones N20.0 16 Dec, 2011 0 955 04223 Problem Chest pain R07.9 Aug, 0 630509 09 Problem URI (upper respiratory infection) J06.9 Sep 0 31791573 Problem Nephrolithiasis N20.0 Active 9557 0007 Problem Fever 780.60 16 Dec, 2011 0 1204302 06 Problem Essential hypertension I10 Active 78896730 Problem GERD (gastroesophageal reflux disease) 530.81 1 0 Jan, 2015 0 274850178 Problem Nausea with vomiting 787.01 Dec, 0 06697261 Problem Abdominal pain, epigastric 789.06 Aug, 0 23394387 Problem Acute pancreatitis 577.0 Oct, 0 007926892 Problem Hyperventilation 786.01 Aug, 0 22617692 Problem Left flank pain R10.9 05 Feb, 2013 0 1 98602276 Problem Hydronephrosis, left N13.30 14 Oct, 2012 0 13035824 Problem Hallux rigidus, right foot 735.2 November, 0 6215003 Problem Status post myocardial infarction I25.2 Jun 0 8150653 Problem Status post myocardial infarction 412 Jun 0 1841575 Problem Bunion, left foot 727.1 Jun, 0 390248399 Problem GERD (gastroesophageal reflux disease) K21.9 1 0 Jan, 2015 0 994815306 Problem HTN (hypertension) I10 Feb, 0 11998707 Problem Tobacco use Z72.0 Jun, 0 04190 3000 Problem Anxiety F41.9 Feb, 0 3060964 2 Problem Non-STEMI (non-ST elevated myocardial infarction) I21.4 Mar, 0 783168335 Problem Sprain of lateral collateral ligament of left knee 844.0 Oct, 0 21281819 Problem Sprain of medial collateral ligament of left knee 844.1 Oct, 0 82307508 Problem Sprain of lateral collateral ligament of left knee S83.422A Oct, 0 00848131 Problem Sprain of tibiofibular ligament of left ankle 845.03 Oct, 0 46325721193998587 Problem Sprain of medial collateral ligament of left knee S83.412A Oct, 0 83992718 Problem Recurrent pancreatitis 577.1 May, 0 006511740 Problem Right upper quadrant pain R10.11 Dec, 0 290340570 Problem Sprain of tibiofibular ligament of left ankle S93. 432A Oct, 0 [id number] Problem TFCC (triangular fibrocartilage complex) injury S69.80XA Jan, 0 Problem TFCC (triangular fibrocartilage complex) injury 718.03 Jan, 0 715391107 Problem Old complete tear of anterior cruciate ligament of lef t knee M23.52 Oct, 0 Problem Old complete tear of anterior cruciate ligament of lef t knee 717.83 Oct, 0 948466033 Problem Acute pancreatitis K85.90 Oct, 0 908769122 Problem Nausea with vomiting R11.2 Dec, 0 24765100 Problem Testosterone deficiency E34.9 Aug, 0 99452310 Problem Testosterone deficiency 259.9 Aug, 0 63074625 Problem Single kidney Z90.5 Active 427210 007 Problem HTN (hypertension) 401.9 Feb, 0 14884136 Problem Bunion, left foot M21.612 05 Jun, 2017 0 600127831 Problem Tobacco use 305.1 Jun, 0 44837 3000 Problem Generalized abdominal pain R10.84 Act bridget 569426155 Problem Anxiety 300.00 Feb, 0 5968247 2 Problem Acute pancreatitis, unspecif ied complication status, unspecified pancreatitis type K85.90 Active 005620579 Problem URI (upper respiratory infection) 465.9 Sep 0 78479633 Problem History of [place] (myocardial infarction) I25.2 Active 582782609 Problem Fluid level behind tympanic membrane of both ears H65.93 Active 011379595 Problem Chronic fatigue R53.82 Active 8422 9001 Problem Dizziness R42 Active 985069927 Problem Non-STEMI (non-ST elevated myocardial infarction) 410.70 Mar, 0 99863249 Problem Hallux rigidus, right foot M20.21 November, 0 8490533 Problem TB skin/subcutaneous A18.4 Active 245063979 Problem Recurrent pancreatitis K86.1 May, 0 808360545 Problem Hyperventilation R06.4 Aug, 0 86503660 Problem Right upper quadrant pain 789.01 Dec, 0 668089787 Problem Hydronephrosis, left 591 14 Oct, 2012 0 53558187 Problem Left flank pain 789.09 Feb, 0 1 09267718 Problem Urinary frequency R35.0 Active 16 6413143 Problem Kidney stones 592.0 16 Dec, 2011 0 955 05879 Problem Urinary urgency R39.15 Active 7508 8002 Problem Nephrolithiasis 592.0 14 Oct, 2012 0 9 4144982 Problem Weight loss R63.4 Active 91441571 Problem Dizziness R42 Active 548634131 Problem Chest pain 786.50 Aug, 0 816955 09 ALLERGIES No Information ENCOUNTERS Encounter Location Date Diagnosis [facility] [address] [address] [place] [address] May, Acute non-recurrent maxillar y sinusitis J01.[address] [facility] [address] [place] [address] Dec, Visit for TB skin test Z11.[address] [place] [address] November, Visit for TB skin test Z11.[address] [place] [address] November, Acute pain of right knee M25 .561 ; Swelling of right knee joint M25.461 and Encounter for observed medication taking Z02.89 [facility] [address] [place] [address] Oct, [facility] [address] [place] [address] Oct, [facility] [address] [place] [address] Oct, Injury of right wrist, initi al encounter S69.91XA and Right forearm pain M79.631 [facility] [address] [place] [address] Sep, [facility] [address] [place] [address] Sep, [facility] R[facility] [address] [place] [address] Sep, [facility] [address] [place] [address] Sep, [facility] [address] [place] [address] Sep, [facility] [address] [place] [address] Sep, [facility] R[facility] [address] [place] [address] Sep, [facility] [address] [place] [address] Sep, [facility] [address] [place] [address] Aug, [facility] [address] [place] [address] Aug, Dizziness R42 ; Urinary urge ncy R39.15 ; Chronic fatigue R53.82 ; Fluid level behind tympanic membrane of both ears H65.93 ; Weight loss R63.4 and Urinary frequency R35.0 [facility] [address] [place] [address] Aug, [facility] R[facility] [address] [place] [address] Aug, [facility] R[facility] [address] [place] [address] Aug, Dysuria R30.0 ; Dehydration E86.0 ; Diarrhea, unspecified type R19.7 ; Acute prostatitis N41.0 and Non-intractable vomiting with nausea, unspecified vomiting type R11.2 [facility] [address] [place] [address] Aug, [facility] DONNA [address] [place] [address] Aug, [facility] [address] [id number] [place] [address] Aug, [facility] [address] [place] [address] Aug, Thyroid disorder E07.9 ; Rahat sea R11.0 and Tremor R25.1 [facility] [address] [place] [address] Aug, [facility] R[facility] [address] [place] [address] Aug, [facility] R[facility] [address] [place] [address] Aug, Low TSH level R79.89 and Con tusion of right clavicle, initial encounter S40.011A [facility] [address] [place] [address] Aug, [facility] [address] [place] [address] 02 Aug, 2018 [facility] [address] [id number] [place] [address] Jul, [facility] [address] [id number] [place] [address] Jul, [facility] [id number] [place] [address] Jun, [facility] [id number] [place] [address] Jun, [facility] [id number] [place] [address] Jun, [facility] [id number] [place] [address] Jun, [facility] [id number] [place] [address] Jun, [facility] [id number] [place] [address] Jun, [facility] [id number] [place] [address] Jun, [facility] [id number] [place] [address] Jun, [facility] [id number] [place] [address] May, IMMUNIZATIONS No Known Immunizations SOCIAL HISTORY Never Assessed REASON FOR VISIT phone change again PLAN OF CARE VITAL SIGNS MEDICATIONS No Known Medications RESULTS No Results PROCEDURES No Known procedures INSTRUCTIONS MEDICATIONS ADMINISTERED No Known Medications MEDICAL (GENERAL) HISTORY Type Description Date Medical History Hydronephrosis, left Medical History Testosterone Deficiency Medical History GERD Medical History hypertension Medical History anxiety Medical History nephrolithiasis, left Medical History pancreatitis Medical History Non-STEMI Surgical History colonoscopy 02/10/2015, 5 Surgical History EGD 2017 Surgical History right nephrectomy Surgical History cholecystectomy Hospitalization History see surgeries
--- OUTSIDE RECORDS SUMMARY | 2019-09-20 19:14 | XMS REPORT | Encounter Summary ---
Author Author [facility] Address Unknown Phone Unavailable Care Team Providers Care Medical Record Specialist Name Role Phone PCP Unavailable Encounter Details Care Team Description Date Type Department Perez Rangel MD Retired Emergency, Physician, Abdominal pain, other specified site 01/10/2012 [facility] [address] [place] [address] Social History Date Tobacco Use Types Packs/Day [...] Name Priority Date/Time Associated Diag nosis CT ABDOMEN PELVIS WO Routine 01/10/2012 CONTRAST 3:46 PM CDT URINE NITRITE Routine 01/10/2012 3:38 PM CDT URINALYSIS MICROSCOPIC Routine 01/10/2012 ONLY 3:38 PM CDT URINALYSIS (INCLUDES Routine 01/10/2012 MICROSCOPIC REVIEW, IF 3:38 PM CDT INDICATED) COMPREHENSIVE METABOLIC Routine 01/10/2012 PANEL 3:13 PM CDT CBC AND DIFF (MANUAL DIFF Routine 01/10/2012 IF NECESSARY) 3:13 PM CDT documented in this encounter Results * CT Abdomen Pelvis wo contrast (01/10/2012 3:46 PM CDT) Specimen Narrative Performed At [facility] Patient: ALDEN REYES Phone #: Med Rec#: [id number] Sex: M : 1970 Maricarmen#: [id number] Location: EB Check-in#: [id number] Procedure Requested: [id number] CT ABD PELVI S WO CONTRAST Reason For Exam: FLANK PAIN Exam Ordered: 01/10/2012 153 5 Exam Date/Time: 01/10/2012 1601 Check-in Date/Time: 01/10/2012 1535 Attendin EMERGENCY, PHYSI LILA "" Requestin CARLY RANGEL Referrin NO, REFERRING DR Primary Care: [id number] PADDY BRIGHT MD Exam: CT abdomen and pelvis without con trast. Date: 01/10/2012 Indication: Flank pain Technique: Helical CT scan of the abdom en and pelvis was performed without contrast. CT abdomen: Or and anterior mild to moderate left h ydronephrosis. Mild right pelvocaliectasis. There are several tin y right-sided renal calculi. Both kidneys appear somewhat malrotated. The re is a prominent calcification in the mid to lower pole of the left ki dney on image 51 measuring 5.2 mm. No ureteral calculi. Post cholecyst ectomy changes. The liver, spleen, pancreas, adrenal gl ands, stomach, and visualized large and small bowel loops within the abdomen appear unremarkable allowing for limitations without contra st. No abdominal lymphadenopathy or abdominal mass is seen. No free flui d or free air is seen. CT pelvis: No distal ureteral calculi. Multiple pe lvic phleboliths. There are colonic diverticulosis changes. No evid ence for diverticulitis. No bladder calculi are seen. No pelvic mass or lymphadenopathy is seen. Allowing for limitations without contra st the small bowel loops within the pelvis appear unremarkable. No free fluid or free air is seen. No suspicious osseous lesions are detected . Impression: 1. Mild to moderate left hydronephrosis . Mild right pelvocaliectasis. No ureteral calculi. 5.2 mm mid to lower p ole left renal calculus. Signed (Authenticated, Released) Date-T nikki: 01/10/2012 9042 Hand Splitter- RADHA Crawford, Staff Radiologist Dictated By- RADHA KAY M.D., Staff Radiologist Staff Physician- RADHA Ray, Staff Radiologist Authenticated By- RADHA Crawford, Staff Radiologist Procedure Note Interface, Rad Conversion - 09/19/2013 2:14 AM SUPERVISOR FELTING REPORT Patient: ALDEN REYES Phone #: Manicube Rec#: [id number] Sex: M : 1970 Maricarmen#: [id number] Location: EB Check-in#: [id number] Procedure Requested: [id number] CT ABD PELVIS WO CONTRAST Reason For Exam: FLANK PAIN Exam Ordered: 01/10/2012 1535 Exam Date/Time: 01/10/2012 1601 Check-in Date/Time: 01/10/2012 1535 Attendin EMERGENCY, PHYSICIAN "" Requestin CARLY RANGEL Referrin NO, REFERRING DR Primary Care: [id number] PADDY BRIGHT MD Exam: CT abdomen and pelvis without contrast. Date: 01/10/2012 Indication: Flank pain Technique: Helical CT scan of the abdomen and pelvis was performed without contrast. CT abdomen: Or and anterior mild to moderate left hydronephrosis. Mild right pelvocaliectasis. There are several tiny right-sided renal calculi. Both kidneys appear somewhat malrotated. There is a prominent calcification in the mid to lower pole of the left kidney on image 51 measuring 5.2 mm. No ureteral calculi. Post cholecystectomy changes. The liver, spleen, pancreas, adrenal glands, stomach, and visualized large and small bowel loops within the abdomen appear unremarkable allowing for limitations without contrast. No abdominal lymphadenopathy or abdominal mass is seen. No free fluid or free air is seen. CT pelvis: No distal ureteral calculi. Multiple pelvic phleboliths. There are colonic diverticulosis changes. No evidence for diverticulitis. No bladder calculi are seen. No pelvic mass or lymphadenopathy is seen. Allowing for limitations without contrast the small bowel loops within the pelvis appear unremarkable. No free fluid or free air is seen. No suspicious osseous lesions are detected. Impression: 1. Mild to moderate left hydronephrosis. Mild right pelvocaliectasis. No ureteral calculi. 5.2 mm mid to lower pole left renal calculus. Signed (Authenticated, Released) Date-Time: 01/10/2012 1619 Hand Splitter- RADHA KAY M.D., Staff Radiologist Dictated By- RADHA KAY M.D., Staff Radiologist Staff Physician- RADHA KAY M.D., Staff Radiologist Authenticated By- RADHA KAY M.D., Staff Radiologist Performing Organization Address [facility] one Number ESASON * Urine Nitrite (01/10/2012 3:38 PM CDT) Nitrite Urine Negative Negative [facility] Specimen Urine Performing Organization [facility] one Number [id number] [phone] [phone] [facility] * Urinalysis (01/10/2012 3:38 PM CDT) Appearance, Yellow [facility] Urine Specific 1.020 1.001 - 1.030 [facility] [place], UA PH Urine 6.5 5.0 - 8.0 [facility] Hemoglobin Trace (A) Negative [facility] Urine Leukocyte Negative Negative [facility] Esterase Bilirubin Urine Negative Negative [facility] Glucose Urine Negative Negative MG/DL [facility] Ketones Urine Negative Negative MG/DL [facility] Protein Urine Negative Negative MG/DL [facility] Qual Urobilinogen Negative Negative EU/DL [facility] Urine Specimen Urine Performing Organization [facility] one Number [id number] [id number] [phone] [facility] * Urinalysis Microscopic Only (01/10/2012 3:38 PM CDT) MICROSCOPIC Done [facility] Microscopic RBC 1 - 5 1 - 5 [facility] Urine Microscopic WBC 1 - 5 1 - 5 [facility] Urine Amorphous Urate Present (A) Absent [facility] Sandi Mucus Large (A) Absent [facility] Specimen Urine Performing Organization [facility] one Number [phone] [phone] [place] * CBC and Diff (manual diff if necessary) (01/10/2012 3:13 PM CDT) WBC 6.95 4.00 - 11.00 TH/UL [facility] RBC 5.29 4.31 - 5.84 MIL/UL [facility] Hemoglobin 15.1 13.0 - 17.0 G/DL [facility] Hematocrit 43 40 - 50 % [facility] MCV 81 80 - 99 FL [facility] MCH 29 27 - 34 PG [facility] MCHC 35 32 - 36 % [facility] RDW 13.1 9.0 - 14.5 % [facility] Platelet Count 300 140 - 400 TH/UL [facility] MPV 10.7 9.4 - 12.3 FL [facility] % Neutrophils 59 45 - 78 % [facility] %Lymphocytes 27 15 - 47 % [facility] %Monocytes 10 0 - 12 % [facility] %Eosinophils 3 0 - 7 % [facility] # Granulocytes 4.08 1.70 - 6.80 TH/UL [facility] # Lymphocytes 1.88 1.00 - 3.30 TH/UL [facility] # Monocytes 0.72 0.20 - 0.90 TH/UL [facility] # Eosinophils 0.22 0.00 - 0.40 TH/UL [facility] # Basophils 0.05 0.00 - 0.10 TH/UL [facility] %Basophils 1 0 - 2 % [facility] Specimen Blood Performing Organization Address City/State/[facility] Ph one Number [id number] [phone] [facility]QUEST * Comprehensive Metabolic Panel (01/10/2012 3:13 PM CDT) Albumin 4.4 3.5 - 5.0 G/DL [facility] Aspartate 26 15 - 46 IU/L [facility] Aminotransferas e Bilirubin Total 0.5 0.2 - 1.3 MG/DL [facility] Protein Total 8.4 (H) 6.0 - 8.2 G/DL [facility] Serum Calcium 9.8 8.4 - 10.2 MG/DL [facility] Sodium 141 133 - 147 MEQ/L [facility] Potassium 4.2 3.5 - 5.1 MEQ/L [facility] Alkaline 63 42 - 128 IU/L [facility] Phosphatase Alanine 13 13 - 69 IU/L [facility] Aminotransferas e Anion Gap 15 3 - 15 [facility] Glucose 114 (H) 70 - 100 MG/DL [facility] Blood Urea 18 7 - 26 MG/DL [facility] Nitrogen Creatinine 0.9 0.6 - 1.3 MG/DL [facility] Carbon Dioxide 23 22 - 30 MEQ/L [facility] Chloride 103 96 - 112 MEQ/L [facility] eGFR Male 93 [facility] Non-AA Comment: Chronic Kidney Disease less than 60 mL/min/1.73 sq.m Kidney failure less than 15 mL/min/1.73 sq.m eGFR Male AA 113 [facility] Comment: Chronic Kidney Disease less than 60 mL/min/1.73 sq.m Kidney failure less than 15 mL/min/1.73 sq.m Specimen Blood Performing Organization Address [facility]State[facility] one Number [phone] [place], [place] [address] [facility] documented in this encounter Visit Diagnoses Diagnosis Abdominal pain, other specified site documented in this encounter
--- OUTSIDE RECORDS SUMMARY | 2019-09-20 19:15 | XMS REPORT | Continuity of Care Document ---
Author Organization Unknown Address Unknown Phone Unavailable Allergies Active Description Code Type Severity Reaction Onset Reported/Identified Relationship to Patient Clinical Status Yes ropinirole [id number] Drug Allerg y Unknown N/A 03/16/2015 Yes droperidol [id number] Drug Allerg y Moderate HYPERACTIVITY, 06/19/2017 Yes NSAIDS (Non-Steroidal Anti-Inflamma [id number] Drug Allergy Moderate KIDNEY FUNCTION 06/19/2017 Yes fentanyl [id number] Drug Allergy Unknown N/A 06/19/2017 Yes prochlorperazine [id number] Drug Allergy Unknown N/A 06/19/2017 Medications There is no data. Problems Date Dx Coded Attending Type Code Diagnosis Diagnosed By 03/16/2015 LUIS DENISE, AGATHA Vargas Ot 789.09 ABDOMINAL PAIN, OTHER SPECIFIED SITE 03/26/2015 DAISY ARIZA APRN Ot 724 .2 LUMBAGO 03/26/2015 DAISY ARIZA BESSEMER CONVERTER OPERATOR Ot 789.09 ABDOMINAL PAIN, OTHER SPECIFIED SITE 03/26/2015 DAISY ARIZA BESSEMER CONVERTER OPERATOR Ot V58.69 OTH MED,LT,CURRENT USE 08/28/2015 EDGAR DENISE, SABRINA Barreto Ot F17.211 NICOTINE DEPENDENCE, CIGARETTES, IN [place] 08/28/2015 SABRINA HERNÁNDEZ MD Ot I25.10 ATHSCL HEART DISEASE OF [place] CORONARY 08/28/2015 SABRINA HERNÁNDEZ MD Ot K20.9 ESOPHAGITIS, UNSPECIFIED 08/28/2015 SABRINA HERNÁNDEZ MD Ot R07.9 CHEST PAIN, UNSPECIFIED 08/28/2015 SABRINA HERNÁNDEZ MD Ot Z90.5 ACQUIRED ABSENCE OF KIDNEY 08/28/2015 SABRINA HERNÁNDEZ MD Ot Z98.61 CORONARY ANGIOPLASTY STATUS 10/19/2016 YVONNE DPM, LIA Q Ot M20. 11 HALLUX VALGUS (ACQUIRED), RIGHT FOOT 10/19/2016 YVONNE DPM, LIA Q Ot Z01.818 ENCOUNTER FOR OTHER PREPROCEDURAL EXAMIN 10/19/2016 YVONNE DPM, LIA Q Ot Z11. 2 ENCOUNTER FOR SCREENING FOR OTHER BACTER 10/26/2016 YVONNE DPM, LIA Q Ot M20. 11 HALLUX VALGUS (ACQUIRED), RIGHT FOOT 10/26/2016 YVONNE DPM, LIA Q Ot Z01.818 ENCOUNTER FOR OTHER PREPROCEDURAL EXAMIN 10/26/2016 YVONNE DPM, LIA Q Ot Z11. 2 ENCOUNTER FOR SCREENING FOR OTHER BACTER 10/26/2016 YVONNE DPM, LIA Q Ot M20. 11 HALLUX VALGUS (ACQUIRED), RIGHT FOOT 10/26/2016 YVONNE DPM, LIA Q Ot M77. 41 METATARSALGIA, RIGHT FOOT 10/31/2016 YVONNE DPM, LIA Q Ot M20. 11 HALLUX VALGUS (ACQUIRED), RIGHT FOOT 10/31/2016 YVONNE DPM, LIA Q Ot M77. 41 METATARSALGIA, RIGHT FOOT 06/19/2017 YVONNE DPM, LIA Q Ot M20. 11 HALLUX VALGUS (ACQUIRED), RIGHT FOOT 06/19/2017 YVONNE DPM, LIA Q Ot Z01.818 ENCOUNTER FOR OTHER PREPROCEDURAL EXAMIN 06/19/2017 YVONNE DPM, LIA Q Ot Z11. 2 ENCOUNTER FOR SCREENING FOR OTHER BACTER 06/19/2017 YVONNE DPM, LIA Q Ot M20. 11 HALLUX VALGUS (ACQUIRED), RIGHT FOOT 06/19/2017 YVONNE DPM, LIA Q Ot Z01.818 ENCOUNTER FOR OTHER PREPROCEDURAL EXAMIN 06/19/2017 YVONNE DPM, LIA Q Ot Z11. 2 ENCOUNTER FOR SCREENING FOR OTHER BACTER 07/01/2017 YVONNE DPM, LIA Q Ot M20. 11 HALLUX VALGUS (ACQUIRED), RIGHT FOOT 07/01/2017 YVONNE DPM, LIA Q Ot Z01.818 ENCOUNTER FOR OTHER PREPROCEDURAL EXAMIN 07/01/2017 YVONNE DPM, LIA Q Ot Z11. 2 ENCOUNTER FOR SCREENING FOR OTHER BACTER 07/01/2017 YVONNE DPM, LIA Q Ot E78. 5 HYPERLIPIDEMIA, UNSPECIFIED 07/01/2017 YVONNE DPM, LIA Q Ot G47. 33 OBSTRUCTIVE SLEEP APNEA (ADULT) (PEDIATR 07/01/2017 YVONNE DPM, LIA Q Ot I10 ESSENTIAL (PRIMARY) HYPERTENSION 07/01/2017 YVONNE DPM, LIA Q Ot I25. 10 ATHSCL HEART DISEASE OF [place] CORONARY 07/01/2017 YVONNE DPM, LAI Q Ot K21. 9 GASTRO-ESOPHAGEAL REFLUX DISEASE WITHOUT 07/01/2017 YVONNE DPM, LIA Q Ot M20. 12 HALLUX VALGUS (ACQUIRED), LEFT FOOT 07/01/2017 YVONNE DPM, LIA Q Ot Z79. 82 MAIL RIDER (CURRENT) USE OF ASPIRIN 07/01/2017 YVONNE DPM, LIA Q Ot Z79.899 OTHER MAIL RIDER (CURRENT) DRUG THERAPY 07/01/2017 YVONNE DPM, LIA Q Ot Z86. 73 PRSNL HX OF TIA (TIA), AND CEREB INFRC W 07/01/2017 YVONNE DPM, LIA Q Ot Z88. 5 ALLERGY STATUS TO NARCOTIC AGENT STATUS 07/01/2017 YVONNE DPM, LIA Q Ot Z88. 6 ALLERGY STATUS TO ANALGESIC AGENT STATUS 07/01/2017 YVONNE DPM, LIA Q Ot Z88. 8 ALLERGY STATUS TO OTH DRUG/MEDS/BIOL SUB 07/01/2017 YVONNE DPM, LIA Q Ot Z90. 5 ACQUIRED ABSENCE OF KIDNEY 07/02/2017 YVONNE DPM, LIA Q Ot E78. 5 HYPERLIPIDEMIA, UNSPECIFIED 07/02/2017 YVONNE DPM, LIA Q Ot G47. 33 OBSTRUCTIVE SLEEP APNEA (ADULT) (PEDIATR 07/02/2017 YVNONE DPM, LIA Q Ot I10 ESSENTIAL (PRIMARY) HYPERTENSION 07/02/2017 YVONNE DPM, LIA Q Ot I25. 10 ATHSCL HEART DISEASE OF [place] CORONARY 07/02/2017 YVONNE DPM, LIA Q Ot K21. 9 GASTRO-ESOPHAGEAL REFLUX DISEASE WITHOUT 07/02/2017 YVONNE DPM, LIA Q Ot M20. 12 HALLUX VALGUS (ACQUIRED), LEFT FOOT 07/02/2017 YVONNE DPM, LIA Q Ot Z79. 82 [facility] (CURRENT) USE OF ASPIRIN 07/02/2017 YVONNE DPM, LIA Q Ot Z79.899 OTHER MAIL RIDER (CURRENT) DRUG THERAPY 07/02/2017 YVONNE DPM, LIA Q Ot Z86. 73 PRSNL HX OF TIA (TIA), AND CEREB INFRC W 07/02/2017 YVONNE DPM, LIA Q Ot Z88. 5 ALLERGY STATUS TO NARCOTIC AGENT STATUS 07/02/2017 YVONNE DPM, LIA Q Ot Z88. 6 ALLERGY STATUS TO ANALGESIC AGENT STATUS 07/02/2017 YVONNE DPM, LIA Q Ot Z88. 8 ALLERGY STATUS TO OTH DRUG/MEDS/BIOL SUB 07/02/2017 YVONNE DPM, LIA Q Ot Z90. 5 ACQUIRED ABSENCE OF KIDNEY 10/24/2018 YVONNE DPM, LIA Q Ot M20. 11 HALLUX VALGUS (ACQUIRED), RIGHT FOOT 10/24/2018 YVONNE DPM, LIA Q Ot Z01.818 ENCOUNTER FOR OTHER PREPROCEDURAL EXAMIN 10/24/2018 YVONNE DPM, LIA Q Ot Z11. 2 ENCOUNTER FOR SCREENING FOR OTHER BACTER 10/27/2018 CAREY CARRANZA BESSEMER CONVERTER OPERATOR Ot S59.911A UNSPECIFIED INJURY OF RIGHT FOREARM, INI 10/27/2018 CAREY CARRANZA BESSEMER CONVERTER OPERATOR Ot S69.91XA UNSP INJURY OF RIGHT WRIST, HAND AND FIN 10/27/2018 TORI PRINGLE MD, Ot E78.0 0 PURE HYPERCHOLESTEROLEMIA, UNSPECIFIED 10/27/2018 TORI PRINGLE MD, Ot F41.9 ANXIETY DISORDER, UNSPECIFIED 10/27/2018 TORI PRINGLE MD, Ot G47.3 0 SLEEP APNEA, UNSPECIFIED 10/27/2018 TORI PRINGLE MD, Ot I10 ESSENTIAL (PRIMARY) HYPERTENSION 10/27/2018 TORI PRINGLE MD, Ot I25.1 0 ATHSCL HEART DISEASE OF [place] CORONARY 10/27/2018 TORI PRINGLE MD, Ot I25.2 OLD MYOCARDIAL INFARCTION 10/27/2018 TORI PRINGLE MD, Ot K21.0 GASTRO-ESOPHAGEAL REFLUX DISEASE WITH ES 10/27/2018 TORI PRINGLE MD, Ot N50.3 CYST OF EPIDIDYMIS 10/27/2018 TORI PRINGLE MD, Ot R10.3 1 RIGHT LOWER QUADRANT PAIN 10/27/2018 TORI PRINGLE MD, Ot Z79.8 2 [facility] (CURRENT) USE OF ASPIRIN 10/27/2018 TORI PRINGLE MD, Ot Z86.7 3 PRSNL HX OF TIA (TIA), AND CEREB INFRC W 10/27/2018 TORI PRINGLE MD, Ot Z87.4 42 PERSONAL HISTORY OF URINARY CALCULI 10/27/2018 TORI PRINGLE MD, Ot Z87.8 91 PERSONAL HISTORY OF NICOTINE DEPENDENCE 10/27/2018 TORI PRINGLE MD, Ot Z88.6 ALLERGY STATUS TO ANALGESIC AGENT STATUS 10/27/2018 TORI PRINGLE MD, Ot Z90.4 9 ACQUIRED ABSENCE OF OTHER SPECIFIED PART 10/27/2018 TORI PRINGLE MD, Ot Z90.5 ACQUIRED ABSENCE OF KIDNEY 10/27/2018 TORI PRINGLE MD, Ot Z95.5 PRESENCE OF CORONARY ANGIOPLASTY IMPLANT 10/29/2018 CAREY CARRANZA BESSEMER CONVERTER OPERATOR Ot S59.911A UNSPECIFIED INJURY OF RIGHT FOREARM, INI 10/29/2018 CAREY CARRANZA BESSEMER CONVERTER OPERATOR Ot S69.91XA UNSP INJURY OF RIGHT WRIST, HAND AND FIN 11/05/2018 YVONNE DPM, LIA Q Ot M20. 11 HALLUX VALGUS (ACQUIRED), RIGHT FOOT 11/05/2018 YVONNE DPM, LIA Q Ot Z01.818 ENCOUNTER FOR OTHER PREPROCEDURAL EXAMIN 11/05/2018 YVONNE DPM, LIA Q Ot Z11. 2 ENCOUNTER FOR SCREENING FOR OTHER BACTER 11/05/2018 CAREY CARRANZA BESSEMER CONVERTER OPERATOR Ot S59.911A UNSPECIFIED INJURY OF RIGHT FOREARM, INI 11/05/2018 CAREY CARRANZA BESSEMER CONVERTER OPERATOR Ot S69.91XA UNSP INJURY OF RIGHT WRIST, HAND AND FIN 11/10/2018 CAREY CARRANZA BESSEMER CONVERTER OPERATOR Ot S59.911A UNSPECIFIED INJURY OF RIGHT FOREARM, INI 11/10/2018 CAREY CARRANZA BESSEMER CONVERTER OPERATOR Ot S69.91XA UNSP INJURY OF RIGHT WRIST, HAND AND FIN 11/23/2018 CAREY CARRANZA BESSEMER CONVERTER OPERATOR Ot M25.561 PAIN IN RIGHT KNEE 01/14/2019 CAREY CARRANZA BESSEMER CONVERTER OPERATOR Ot S59.911A UNSPECIFIED INJURY OF RIGHT FOREARM, INI 01/14/2019 CAREY CARRANZA BESSEMER CONVERTER OPERATOR Ot S69.91XA UNSP INJURY OF RIGHT WRIST, HAND AND FIN 02/09/2019 CAREY CARRANZA Steve BESSEMER CONVERTER OPERATOR Ot S59.911A UNSPECIFIED INJURY OF RIGHT FOREARM, INI 02/09/2019 CAREY CARRANZA S BESSEMER CONVERTER OPERATOR Ot S69.91XA UNSP INJURY OF RIGHT WRIST, HAND AND FIN 02/09/2019 TERECAREY Dos Santos S BESSEMER CONVERTER OPERATOR Ot S59.911A UNSPECIFIED INJURY OF RIGHT FOREARM, INI 02/09/2019 TERECAREY Dos Santos S BESSEMER CONVERTER OPERATOR Ot S69.91XA UNSP INJURY OF RIGHT WRIST, HAND AND FIN 02/09/2019 CAREY CARRANZA S BESSEMER CONVERTER OPERATOR Ot S59.911A UNSPECIFIED INJURY OF RIGHT FOREARM, INI 02/09/2019 HERMANN CARRANZAANDA S BESSEMER CONVERTER OPERATOR Ot S69.91XA UNSP INJURY OF RIGHT WRIST, HAND AND FIN 02/10/2019 CAREY CARRANZA S BESSEMER CONVERTER OPERATOR Ot S59.911A UNSPECIFIED INJURY OF RIGHT FOREARM, INI 02/10/2019 TERE CAREY S BESSEMER CONVERTER OPERATOR Ot S69.91XA UNSP INJURY OF RIGHT WRIST, HAND AND FIN 04/23/2019 YVONNE DPM, LIA Q Ot M20. 11 HALLUX VALGUS (ACQUIRED), RIGHT FOOT 04/23/2019 YVONNE DPM, LIA Q Ot Z01.818 ENCOUNTER FOR OTHER PREPROCEDURAL EXAMIN 04/23/2019 YVONNE DPM, LIA Q Ot Z11. 2 ENCOUNTER FOR SCREENING FOR OTHER BACTER 04/23/2019 CAREY CARRANZA BESSEMER CONVERTER OPERATOR Ot S59.911A UNSPECIFIED INJURY OF RIGHT FOREARM, INI 04/23/2019 CAREY CARRANZA BESSEMER CONVERTER OPERATOR Ot S69.91XA UNSP INJURY OF RIGHT WRIST, HAND AND FIN 04/23/2019 CAREY CARRANZA BESSEMER CONVERTER OPERATOR Ot M25.561 PAIN IN RIGHT KNEE 04/27/2019 JENELLE LUU SPINDLE SANDER Ot M25.531 PAIN IN RIGHT WRIST 08/28/2019 YVONNE DPM, LIA Q Ot M20. 11 HALLUX VALGUS (ACQUIRED), RIGHT FOOT 08/28/2019 YVONNE DPM, LIA Q Ot Z01.818 ENCOUNTER FOR OTHER PREPROCEDURAL EXAMIN 08/28/2019 YVONNE DPM, LIA Q Ot Z11. 2 ENCOUNTER FOR SCREENING FOR OTHER BACTER 08/28/2019 CAREY CARRANZA BESSEMER CONVERTER OPERATOR Ot S59.911A UNSPECIFIED INJURY OF RIGHT FOREARM, INI 08/28/2019 CAREY CARRANZA BESSEMER CONVERTER OPERATOR Ot S69.91XA UNSP INJURY OF RIGHT WRIST, HAND AND FIN 08/28/2019 CAREY CARRANZA BESSEMER CONVERTER OPERATOR Ot M25.561 PAIN IN RIGHT KNEE 08/28/2019 JENELLE LUU SPINDLE SANDER Ot M25.531 PAIN IN RIGHT WRIST 09/14/2019 YVONNE DPM, LIA Q Ot M20. 11 HALLUX VALGUS (ACQUIRED), RIGHT FOOT 09/14/2019 YVONNE DPM, LIA Q Ot Z01.818 ENCOUNTER FOR OTHER PREPROCEDURAL EXAMIN 09/14/2019 YVONNE DPM, LIA Q Ot Z11. 2 ENCOUNTER FOR SCREENING FOR OTHER BACTER 09/14/2019 CAREY CARRANZA BESSEMER CONVERTER OPERATOR Ot S59.911A UNSPECIFIED INJURY OF RIGHT FOREARM, INI 09/14/2019 CAREY CARRANZA BESSEMER CONVERTER OPERATOR Ot S69.91XA UNSP INJURY OF RIGHT WRIST, HAND AND FIN 09/14/2019 CAREY CARRANZA BESSEMER CONVERTER OPERATOR Ot M25.561 PAIN IN RIGHT KNEE 09/14/2019 JENELLE LUU SPINDLE SANDER Ot M25.531 PAIN IN RIGHT WRIST 09/16/2019 JESSY LEGER, JOSÉ MIGUEL Ot I21.4 NON-ST ELEVATION (NSTEMI) MYOCARDIAL INF 09/16/2019 JESSY LEGER JOSÉ MIGUEL Ot E05.90 THYROTOXICOSIS, UNSP WITHOUT THYROTOXIC 09/16/2019 JESSY LEGER JOSÉ MIGUEL Ot E78.00 PURE HYPERCHOLESTEROLEMIA, UNSPECIFIED 09/16/2019 JESSY LEGER JOSÉ MIGUEL Ot F17.21 0 NICOTINE DEPENDENCE, CIGARETTES, UNCOMPL 09/16/2019 JESSY DO, JOSÉ MIGUEL Ot F41.9 ANXIETY DISORDER, UNSPECIFIED 09/16/2019 JIMÉNEZ DO, JOSÉ MIGUEL Ot G47.30 SLEEP APNEA, UNSPECIFIED 09/16/2019 JESSY LEGER JOSÉ MIGUEL Ot I10 ESSENTIAL (PRIMARY) HYPERTENSION 09/16/2019 JESSY LEGER JOSÉ MIGUEL Ot I25.11 0 ATHSCL HEART DISEASE OF [place] COR ART W 09/16/2019 JESSY DO JOSÉ MIGUEL Ot I25.2 OLD MYOCARDIAL INFARCTION 09/16/2019 JESSY LEGER JOSÉ MIGUEL Ot J40 BRONCHITIS, NOT SPECIFIED ACUTE OR CH 09/16/2019 JIMÉNEZ DO, JOSÉ MIGUEL Ot K21.0 GASTRO-ESOPHAGEAL REFLUX DISEASE WITH ES 09/16/2019 JIMÉNEZ DO, JOSÉ MIGUEL Ot M10.9 GOUT, UNSPECIFIED 09/16/2019 JIMÉNEZ DO, JOSÉ MIGUEL Ot N40.0 BENIGN PROSTATIC HYPERPLASIA WITHOUT LOW 09/16/2019 JIMÉNEZ DO, JOSÉ MIGUEL Ot Z86.73 PRSNL HX OF TIA (TIA), AND CEREB INFRC W 09/16/2019 JIMÉNEZ DO, JOSÉ MIGUEL Ot Z90.5 ACQUIRED ABSENCE OF KIDNEY 09/16/2019 JIMÉNEZ DO, JOSÉ MIGUEL Ot Z91.14 PATIENT'S OTHER NONCOMPLIANCE WITH MEDIC 09/16/2019 JIMÉNEZ DO, JOSÉ MIGUEL Ot Z95.5 PRESENCE OF CORONARY ANGIOPLASTY IMPLANT Procedures There is no data. Results Test Result Range Methicillin resistant Staphylococcus aur eus (MRSA) screening culture - 10/18/16 12:10 MRSA SCREEN RESULT MRSA ISOLATED NRG Methicillin resistant Staphylococcus aur eus (MRSA) screening culture - 06/19/17 09:20 MRSA SCREEN RESULT MRSA ISOLATED NRG Complete urinalysis with reflex to cultu re - 10/27/18 17:50 Urine color determination YELLOW NRG Urine clarity determination CLEAR NR G Urine pH measurement by test strip 6.0 5-9 Specific gravity of urine by test strip 1.020 1.016-1.022 Urine protein assay by test strip, semi-quantitative NEGATIVE NEGATIVE Urine glucose detection by automated test strip NE GATIVE NEGATIVE Erythrocytes detection in urine sediment by light micr oscopy NEGATIVE NEGATIVE Urine ketones detection by automated test strip NE GATIVE NEGATIVE Urine nitrite detection by test strip NEGATIVE NEGATIVE Urine total bilirubin detection by test strip NEGA TIVE NEGATIVE Urine urobilinogen measurement by automated test strip (mass/volume) 0.2 mg/dL NORMAL Urine leukocyte esterase detection by dipstick NEG ATIVE NEGATIVE Automated urine sediment erythrocyte cou nt by microscopy (number/high power field) NONE NRG Automated urine sediment leukocyte count by microscopy (number/high power field) [HPF] NRG Bacteria detection in urine sediment by light microsco py NEGATIVE NRG Squamous epithelial cells detection in u rine sediment by light microscopy NONE NRG Crystals detection in urine sediment by light microsco py NONE NRG Casts detection in urine sediment by light microscopy NONE NRG Mucus detection in urine sediment by light microscopy NEGATIVE NRG Complete urinalysis with reflex to culture NO NRG CBC w/MANUAL DIFF - 11/20/18 11:34 WHITE BLOOD CELL COUNT 8.3 Thousand/uL 3 .8-10.8 RED BLOOD CELL COUNT 5.19 Million/uL 4.2 0-5.80 HEMOGLOBIN 14.4 g/dL 13.2-17.1 HEMATOCRIT 43.1 % 38.5-50.0 MCV 83.0 fL 80.0-100.0 MCH 27.7 pg 27.0-33.0 MCHC 33.4 g/dL 32.0-36.0 RDW 14.6 % 11.0-15.0 PLATELET COUNT 252 Thousand/uL 140-400 MPV 10.8 fL 7.5-12.5 ABSOLUTE NEUTROPHILS 5080 cells/uL 1500- 7800 ABSOLUTE MONOCYTES 481 cells/uL 200-950 ABSOLUTE EOSINOPHILS 324 cells/uL 15-500 ABSOLUTE BASOPHILS 0 cells/uL 0-200 NEUTROPHILS 61.2 % NRG LYMPHOCYTES 29.1 % NRG MONOCYTES 5.8 % NRG EOSINOPHILS 3.9 % NRG BASOPHILS 0 % NRG ABSOLUTE LYMPHOCYTES 2415 cells/uL 850-3 900 PLATELET ESTIMATION ADEQUATE ADEQUATE PDM - 09 PANEL (PROFILE 1) - 11/20/18 11 :34 Prescribed Drug 1 Tramadol NRG Creatinine 201.2 mg/dL > or = 20.0 pH 6.71 4.5 - 9.0 Oxidant NEGATIVE mcg/mL <200 Amphetamines NEGATIVE ng/mL <500 medMATCH Amphetamines CONSISTENT NRG Benzodiazepines NEGATIVE ng/mL <100 medMATCH Benzodiazepines INCONSISTENT N RG Marijuana Metabolite POSITIVE ng/mL <20 Cocaine Metabolite NEGATIVE ng/mL <150 medMATCH Cocaine Metab CONSISTENT NRG Opiates NEGATIVE ng/mL <100 medMATCH Opiates CONSISTENT NRG Oxycodone NEGATIVE ng/mL <100 medMATCH Oxycodone CONSISTENT NRG COMMENT NRG Prescribed Drug 2 Clonazepam NRG Prescribed Drug 3 Gabapentin NRG Marijuana Metabolite 38 ng/mL <5 medMATCH Marijuana Metab INCONSISTENT N RG Barbiturates NEGATIVE ng/mL <300 medMATCH Barbiturates CONSISTENT NRG Methadone Metabolite NEGATIVE ng/mL <100 medMATCH Methadone Metab CONSISTENT NRG Phencyclidine NEGATIVE ng/mL <25 medMATCH Phencyclidine CONSISTENT NRG Complete blood count (CBC) with automate d white blood cell (WBC) differential - 09/14/19 10:15 Blood leukocytes automated count (number/volume) 8.4 10*3/uL 4.3-11.0 Blood erythrocytes automated count (number/volume) 5.08 10*6/uL 4.35-5.85 Venous blood hemoglobin measurement (mass/volume) 14.3 g/dL 13.3-17.7 Blood hematocrit (volume fraction) 42 % 40-54 Automated erythrocyte mean corpuscular volume 83 [ foz_us] 80-99 Automated erythrocyte mean corpuscular h emoglobin (mass per erythrocyte) 28 pg 25-34 Automated erythrocyte mean corpuscular h emoglobin concentration measurement (mass/volume) 34 g/dL 32-36 Automated erythrocyte distribution width ratio 13. 6 % 10.0- 14.5 Automated blood platelet count (count/volume) 239 10*3/uL 130-400 Automated blood platelet mean volume measurement 10.7 [foz_us] 7.4-10.4 Automated blood neutrophils/100 leukocytes 65 % 42-75 Automated blood lymphocytes/100 leukocytes 23 % 12-44 Blood monocytes/100 leukocytes 10 % 0-12 Automated blood eosinophils/100 leukocytes 1 % 0-10 Automated blood basophils/100 leukocytes 1 % 0-10 Blood neutrophils automated count (number/volume) 5.4 10*3 1.8-7.8 Blood lymphocytes automated count (number/volume) 1.9 10*3 1.0-4.0 Blood monocytes automated count (number/volume) 0. 9 10*3 0.0-1.0 Automated eosinophil count 0.1 10*3/uL 0 .0-0.3 Automated blood basophil count (count/volume) 0.1 10*3/uL 0.0-0.1 Comprehensive metabolic panel - 09/14/19 10:15 Serum or plasma sodium measurement (moles/volume) 140 mmol/L 135-145 Serum or plasma potassium measurement (moles/volume) 4.0 mmol/L 3.6-5.0 Serum or plasma chloride measurement (moles/volume) 103 mmol/L 98-107 Carbon dioxide 24 mmol/L 21-32 Serum or plasma anion gap determination (moles/volume) 13 mmol/L 5-14 Serum or plasma urea nitrogen measurement (mass/volume ) 12 mg/dL 7-18 Serum or plasma creatinine measurement (mass/volume) 1.07 mg/dL 0.60-1.30 Serum or plasma urea nitrogen/creatinine mass ratio 11 NRG Serum or plasma creatinine measurement w ith calculation of estimated glomerular filtration rate > NRG Serum or plasma glucose measurement (mass/volume) 114 mg/dL 70-105 Serum or plasma calcium measurement (mass/volume) 9.4 mg/dL 8.5-10.1 Serum or plasma total bilirubin measurement (mass/volu me) 0.3 mg/dL 0.1-1.0 Serum or plasma alkaline phosphatase khoa surement (enzymatic activity/volume) 67 U/L 40-136 Serum or plasma aspartate aminotransfera se measurement (enzymatic activity/volume) 17 U/L 5-34 Serum or plasma alanine aminotransferase measurement (enzymatic activity/volume) 25 U/L 0-55 Serum or plasma protein measurement (mass/volume) 7.6 g/dL 6.4-8.2 Serum or plasma albumin measurement (mass/volume) 3.9 g/dL 3.2-4.5 CALCIUM CORRECTED 9.5 mg/dL 8.5-10.1 Magnesium - 09/14/19 10:15 Magnesium 2.0 mg/dL 1.6-2.4 TROPONIN I FS - 09/14/19 10:15 TROPONIN I FS < 0.30 <0.30 PROBNP FS - 09/14/19 10:15 PROBNP FS 83.1 pg/mL <75.0 Lipase - 09/14/19 10:15 Lipase 56 U/L 8-78 Fibrin D-dimer FEU measurement in platel et poor plasma (mass/volume) - 09/14/19 10:15 Fibrin D-dimer FEU measurement in platelet poor plasma (mass/volume) 1.04 ug/mL 0.00-0.49 THYROID STIMULATING HORMONE - 09/14/19 1 0:15 THYROID STIMULATING HORMONE 0.96 u[iU]/mL 0.35-4.94 TROPONIN I FS - 09/14/19 13:30 TROPONIN I FS < 0.30 <0.30 Methicillin resistant Staphylococcus aur eus (MRSA) screening culture - 09/14/19 15:55 Methicillin resistant Staphylococcus aureus (MRSA) scr eening culture NEG NRG Serum or plasma troponin i.cardiac measu rement (mass/volume) - 09/14/19 16:24 Serum or plasma troponin i.cardiac measurement (mass/v olume) < ng/mL <0.028 Complete blood count (CBC) with automate d white blood cell (WBC) differential - 09/15/19 03:45 Blood leukocytes automated count (number/volume) 8.1 10*3/uL 4.3-11.0 Blood erythrocytes automated count (number/volume) 4.65 10*6/uL 4.35-5.85 Venous blood hemoglobin measurement (mass/volume) 13.0 g/dL 13.3-17.7 Blood hematocrit (volume fraction) 39 % 40-54 Automated erythrocyte mean corpuscular volume 84 [ foz_us] 80-99 Automated erythrocyte mean corpuscular h emoglobin (mass per erythrocyte) 28 pg 25-34 Automated erythrocyte mean corpuscular h emoglobin concentration measurement (mass/volume) 33 g/dL 32-36 Automated erythrocyte distribution width ratio 14. 1 % 10.0- 14.5 Automated blood platelet count (count/volume) 252 10*3/uL 130-400 Automated blood platelet mean volume measurement 11.1 [foz_us] 7.4-10.4 Automated blood neutrophils/100 leukocytes 57 % 42-75 Automated blood lymphocytes/100 leukocytes 27 % 12-44 Blood monocytes/100 leukocytes 13 % 0-12 Automated blood eosinophils/100 leukocytes 3 % 0-10 Automated blood basophils/100 leukocytes 0 % 0-10 Blood neutrophils automated count (number/volume) 4.6 10*3 1.8-7.8 Blood lymphocytes automated count (number/volume) 2.2 10*3 1.0-4.0 Blood monocytes automated count (number/volume) 1. 0 10*3 0.0-1.0 Automated eosinophil count 0.2 10*3/uL 0 .0-0.3 Automated blood basophil count (count/volume) 0.0 10*3/uL 0.0-0.1 PT panel in platelet poor plasma by coag ulation assay - 09/15/19 03:45 Prothrombin time (PT) in platelet poor plasma by coagu lation assay 14.2 s 12.2-14.7 INR in platelet poor plasma or blood by coagulation as say 1.1 0.8-1.4 Activated partial thromboplastin time (a PTT) in platelet poor plasma bycoagulation assay - 09/15/19 03:45 Activated partial thromboplastin time (a PTT) in platelet poor plasma bycoagulation assay 28 s 24-35 Comprehensive metabolic panel - 09/15/19 03:45 Serum or plasma sodium measurement (moles/volume) 140 mmol/L 135-145 Serum or plasma potassium measurement (moles/volume) 4.1 mmol/L 3.6-5.0 Serum or plasma chloride measurement (moles/volume) 108 mmol/L 98-107 Carbon dioxide 23 mmol/L 21-32 Serum or plasma anion gap determination (moles/volume) 9 mmol/L 5-14 Serum or plasma urea nitrogen measurement (mass/volume ) 14 mg/dL 7-18 Serum or plasma creatinine measurement (mass/volume) 1.05 mg/dL 0.60-1.30 Serum or plasma urea nitrogen/creatinine mass ratio 13 NRG Serum or plasma creatinine measurement w ith calculation of estimated glomerular filtration rate > NRG Serum or plasma glucose measurement (mass/volume) 93 mg/dL 70-105 Serum or plasma calcium measurement (mass/volume) 8.8 mg/dL 8.5-10.1 Serum or plasma total bilirubin measurement (mass/volu me) 0.4 mg/dL 0.1-1.0 Serum or plasma alkaline phosphatase khoa surement (enzymatic activity/volume) 58 U/L 40-136 Serum or plasma aspartate aminotransfera se measurement (enzymatic activity/volume) 17 U/L 5-34 Serum or plasma alanine aminotransferase measurement (enzymatic activity/volume) 20 U/L 0-55 Serum or plasma protein measurement (mass/volume) 6.4 g/dL 6.4-8.2 Serum or plasma albumin measurement (mass/volume) 3.5 g/dL 3.2-4.5 CALCIUM CORRECTED 9.2 mg/dL 8.5-10.1 Serum or plasma phosphate measurement (m ass/volume) - 09/15/19 03:45 Serum or plasma phosphate measurement (mass/volume) 4.0 mg/dL 2.3-4.7 Magnesium - 09/15/19 03:45 Magnesium 1.9 mg/dL 1.6-2.4 Lipid 1996 panel - 09/15/19 03:45 Serum or plasma triglyceride measurement (mass/volume) 141 mg/dL <150 Serum or plasma cholesterol measurement (mass/volume) 133 mg/dL < 200 Serum or plasma cholesterol in HDL measurement (mass/v olume) 33 mg/dL 40-60 Cholesterol in LDL [mass/volume] in serum or plasma by direct assay 80 mg/dL 1-129 Serum or plasma cholesterol in VLDL measurement (mass/ volume) 28 mg/dL 5-40 Complete blood count (CBC) with automate d white blood cell (WBC) differential - 09/16/19 03:20 Blood leukocytes automated count (number/volume) 7.9 10*3/uL 4.3-11.0 Blood erythrocytes automated count (number/volume) 4.55 10*6/uL 4.35-5.85 Venous blood hemoglobin measurement (mass/volume) 12.6 g/dL 13.3-17.7 Blood hematocrit (volume fraction) 38 % 40-54 Automated erythrocyte mean corpuscular volume 84 [ foz_us] 80-99 Automated erythrocyte mean corpuscular h emoglobin (mass per erythrocyte) 28 pg 25-34 Automated erythrocyte mean corpuscular h emoglobin concentration measurement (mass/volume) 33 g/dL 32-36 Automated erythrocyte distribution width ratio 14. 1 % 10.0- 14.5 Automated blood platelet count (count/volume) 226 10*3/uL 130-400 Automated blood platelet mean volume measurement 10.3 [foz_us] 7.4-10.4 Automated blood neutrophils/100 leukocytes 64 % 42-75 Automated blood lymphocytes/100 leukocytes 22 % 12-44 Blood monocytes/100 leukocytes 11 % 0-12 Automated blood eosinophils/100 leukocytes 2 % 0-10 Automated blood basophils/100 leukocytes 0 % 0-10 Blood neutrophils automated count (number/volume) 5.1 10*3 1.8-7.8 Blood lymphocytes automated count (number/volume) 1.8 10*3 1.0-4.0 Blood monocytes automated count (number/volume) 0. 9 10*3 0.0-1.0 Automated eosinophil count 0.2 10*3/uL 0 .0-0.3 Automated blood basophil count (count/volume) 0.0 10*3/uL 0.0-0.1 Whole blood basic metabolic panel - 08/23 01/08 03:20 Serum or plasma sodium measurement (moles/volume) 139 mmol/L 135-145 Serum or plasma potassium measurement (moles/volume) 3.9 mmol/L 3.6-5.0 Serum or plasma chloride measurement (moles/volume) 106 mmol/L 98-107 Carbon dioxide 22 mmol/L 21-32 Serum or plasma anion gap determination (moles/volume) 11 mmol/L 5-14 Serum or plasma urea nitrogen measurement (mass/volume ) 12 mg/dL 7-18 Serum or plasma creatinine measurement (mass/volume) 0.93 mg/dL 0.60-1.30 Serum or plasma urea nitrogen/creatinine mass ratio 13 NRG Serum or plasma creatinine measurement w ith calculation of estimated glomerular filtration rate > NRG Serum or plasma glucose measurement (mass/volume) 96 mg/dL 70-105 Serum or plasma calcium measurement (mass/volume) 8.8 mg/dL 8.5-10.1 Serum or plasma phosphate measurement (m ass/volume) - 09/16/19 03:20 Serum or plasma phosphate measurement (mass/volume) 4.0 mg/dL 2.3-4.7 Magnesium - 09/16/19 03:20 Magnesium 1.9 mg/dL 1.6-2.4 Encounters ACCT No. Visit Date/Time Discharge Status Pt. Type Provider Facility Loc./Unit Complaint [id number] 06/09/2019 13:00:00 06/09/2019 23:59: 59 CLS Outpatient [facility] [id number] 11/20/2018 10:40:00 Document Registration [id number] 09/14/2019 14:42:00 14:15:00 DIS Inpatient JOSÉ MIGUEL JIMÉNEZ DO, V [facility] ICU INTRACTABLE CHEST PAIN [id number] 05/06/2019 13:30:00 23:59:59 CLS Preadmit JENELLE LUU [facility] RAD SPRAIN OF CARPAL JOINT OF RIGHT WRIST [id number] 04/23/2019 14:08:00 23:59:59 CLS Outpatient JENELLE LUU [facility] RAD FS M25.531 [id number] 11/20/2018 11:14:00 23:59:59 CLS Outpatient CAREY CARRANZA APRN [facility] RAD FS M25.461 M25.561 [id number] 10/27/2018 17:12:00 20:55:00 DIS Emergency TORI PRIGNLE MD [facility] ER FS RT SIDE GROIN PAIN [id number] 10/24/2018 11:17:00 019 23:59:59 CLS Outpatient CAREY CARRANZA BESSEMER CONVERTER OPERATOR [facility] RAD FS M79.631 S69.91XA [id number] 07/01/2017 09:19:00 017 13:18:00 DIS Outpatient YVONNE DPM, LIA Q Via [facility] HALLUX RIGIDUS [id number] 06/19/2017 09:05:00 017 10:08:00 DIS Outpatient YVONNE DPM, LIA Q [facility] PREOP HALLUX RIGIDUS [id number] 10/26/2016 11:08:00 017 16:50:00 DIS Outpatient YVONNE DPM, LIA Q [facility] RIGHT HALLUX [id number] 10/18/2016 11:31:00 017 23:59:59 CLS Outpatient YVONNE DPM, LIA Q [facility] PREOP RIGHT HALLUX [id number] 08/28/2015 02:52:00 016 07:46:00 DIS Emergency EDGAR DENISE, SABRINA Barreto [facility] ER CP [id number] 03/26/2015 18:19:00 015 20:12:00 DIS Emergency DAISY ARIZA APRN [facility] ER FALL/LFT KIDNEY PAIN/PA IN URIN [id number] 03/16/2015 20:20:00 015 23:17:00 DIS Emergency LUIS DENISE, AGATHA Vargas [facility] ER L FLANK PAIN
--- OUTSIDE RECORDS SUMMARY | 2019-09-30 03:12 | XMS REPORT | Encounter Summary ---
Author Author [facility] Address Unknown Phone Unavailable Care Team Providers Care Music Engineer Name Role Phone PCP Unavailable Encounter Details Care Team Description Date Type Department Perez Rangel MD Retired Emergency, Physician, Abdominal pain, other specified site 01/10/2012 [facility] [address] [place] [address] Social History Date Tobacco Use Types Packs/Day [...] 3:46 PM CDT) Specimen Narrative Performed At [facility] Patient: ALDEN ERYES Phone #: Med Rec#: [id number] Sex: M : 1970 Maricarmen#: [id number] Location: EB Check-in#: [id number] Procedure Requested: 95330 CT ABD PELVI S WO CONTRAST Reason For Exam: FLANK PAIN Exam Ordered: 01/10/2012 153 5 Exam Date/Time: 01/10/2012 1601 Check-in Date/Time: 01/10/2012 1535 Attendin EMERGENCY, PHYSI LILA "" Requestin CARLY RANGEL Referrin NO, REFERRING DR Primary Care: [id number] PADDY BRIGHT MD Exam: CT abdomen and [...] calculus. Signed (Authenticated, Released) Date-T nikki: 01/10/2012 3793 Clinical Practice Consultant- RADHA Crawford, Staff Radiologist Dictated By- RADHA KAY M.D., Staff Radiologist Staff Physician- RADHA Ray, Staff Radiologist Authenticated By- RADHA Crawford, Staff Radiologist Procedure Note Interface, Rad Conversion - 09/19/2013 2:14 AM OFFICE SYSTEMS TECHNOLOGY INSTRUCTOR REPORT Patient: ALDEN REYES Phone #: Evirx Rec#: [id number] Sex: M : 1970 Maricarmen#: [id number] Location: EB Check-in#: [id number] Procedure Requested: [id number] CT ABD PELVIS WO CONTRAST Reason For Exam: FLANK PAIN Exam Ordered: 01/10/2012 1535 Exam Date/Time: 01/10/2012 1601 Check-in Date/Time: 01/10/2012 1535 Attendin EMERGENCY, PHYSICIAN "" Requestin CARLY RANGEL Referrin NO, REFERRING DR Primary Care: [id number] PADDY BRIGHT MD Exam: CT abdomen and [...] calculus. Signed (Authenticated, Released) Date-Time: 01/10/2012 1619 Clinical Practice Consultant- RADHA KAY M.D., Staff Radiologist Dictated By- RADHA KAY M.D., Staff Radiologist Staff Physician- RADHA KAY M.D., Staff Radiologist Authenticated By- RADHA KAY M.D., Staff Radiologist Performing Organization Address [facility] one Number ESASON * Urine Nitrite (01/10/2012 3:38 PM CDT) Nitrite Urine Negative Negative SUNQUEST Specimen Urine Performing Organization [facility] one Number SLRL [address] [place] [address] SUNQUEST * Urinalysis (01/10/2012 3:38 PM CDT) Appearance, Yellow SUNQUEST Urine Specific 1.020 1.001 - 1.030 SUNQUEST [place], UA PH Urine 6.5 5.0 - 8.0 SUNQUEST Hemoglobin Trace (A) Negative SUNQUEST Urine Leukocyte Negative Negative SUNQUEST Esterase Bilirubin Urine Negative Negative SUNQUEST Glucose Urine Negative Negative MG/DL SUNQUEST Ketones Urine Negative Negative MG/DL SUNQUEST Protein Urine Negative Negative MG/DL SUNQUEST Qual Urobilinogen Negative Negative EU/DL SUNQUEST Urine Specimen Urine Performing Organization [facility] one Number SLRL [address] [address] SUNQUEST * Urinalysis Microscopic Only (01/10/2012 3:38 PM CDT) MICROSCOPIC Done SUNQUEST Microscopic RBC 1 - 5 1 - 5 SUNQUEST Urine Microscopic WBC 1 - 5 1 - 5 SUNQUEST Urine Amorphous Urate Present (A) Absent SUNQUEST Sandi Mucus Large (A) Absent SUNQUEST Specimen Urine Performing Organization [facility] one Number RL [address] [address] SUNQUEST * CBC and Diff (manual [...] % SUNQUEST Specimen Blood Performing Organization Address City/State/[facility] Ph one Number SLRL [address] [phone] SUNQUEST * Comprehensive Metabolic Panel (01/10/2012 [...] mL/min/1.73 sq.m Specimen Blood Performing Organization Address [facility]State[facility] one Number [facility] [address] [place], [place] [address] SUNQUEST documented in this encounter Visit Diagnoses Diagnosis Abdominal pain, other specified site documented in this encounter
--- OUTSIDE RECORDS SUMMARY | 2019-09-30 03:12 | XMS REPORT | Clinical Summary ---
Author Author [facility] Organization [facility] Address Unknown Phone Unavailable Care Team Providers Care Superintendent Circus Name Role Phone PCP Unavailable Allergies Not [...]
--- OUTSIDE RECORDS SUMMARY | 2019-09-30 03:12 | XMS REPORT | Encounter Summary ---
Author Author [facility] Organization [facility] Address Unknown Phone Unavailable Care Team Providers Care Crm Specialist Name Role Phone PCP Unavailable Encounter Details Care Team Description Date Type Department Raman Benton DO [address] [place] [address] [phone] 08/07/[address] [address] Social History Date Tobacco Use Types Packs/Day [...] HEAD WO CONTRAST Routine 08/07/2000 5:00 PM FLEX O WRITER OPERATOR XR ELBOW MIN 3 VIEWS LEFT Routine 08/07/2000 4:44 PM FLEX O WRITER OPERATOR documented in this encounter Results * CT Head wo contrast (08/07/2000 5:00 PM FLEX O WRITER OPERATOR) Specimen Narrative Performed At [facility] CHILEL/sivakumar/[id number] [facility] Name: ALDEN REYES Date of : 1970 Age: 29Y Room-Bed/Loca tion/Type: -//EB Check-In #: [id number] Attending Physician: Levon BENTON DO Procedure: CT HEAD W/O CONTRAST Reason for Exam: 784.0;HEADACHE Requested by: Levon BENTON Film Jacket #: [id number] Order Date: 08/07/2000 16:08 Exam Date: 08/07/2000 [...] Interface, Rad Conversion - 09/21/2013 2:23 PM FLEX O WRITER OPERATOR Report RAD/gl/[id number] [facility] Name: ALDEN REYES Date of : 1970 Age: 29Y Room-Bed/Location/Type: -//EB Check-In #: [id number] Attending Physician: Levon BENTON DO Procedure: CT HEAD W/O CONTRAST Reason for Exam: 784.0;HEADACHE Requested by: Levon BENTON Film Jacket #: [id number] Order Date: 08/07/2000 16:08 Exam Date: 08/07/2000 [...] min 3 views left (08/07/2000 4:44 PM FLEX O WRITER OPERATOR) Specimen Narrative Performed At Report LARRY RAD/gl/[id number] [facility] Name: ALDEN REYES Date of : 1970 Age: 29Y Room-Bed/Loca tion/Type: -//EB Check-In #: [id number] Attending Physician: Levon BENTON DO Procedure: DX ELBOW 3 VIEWS Reason for Exam: 719.42;JOINT PAIN Requested by: Levon BENTON Film Jacket #: [id number] Order Date: 08/07/2000 16:09 Exam Date: 08/07/2000 [...] Interface, Rad Conversion - 09/21/2013 2:23 PM FLEX O WRITER OPERATOR Report RAD/gl/[id number] [facility] Name: ALDEN REYES Date of : 1970 Age: 29Y Room-Bed/Location/Type: -//EB Check-In #: [id number] Attending Physician: Levon BENTON DO Procedure: DX ELBOW 3 VIEWS Reason for Exam: 719.42;JOINT PAIN Requested by: Levon BENTON Film Jacket #: [id number] Order Date: 08/07/2000 16:09 Exam Date: 08/07/2000 [...] IMAGING CONSULTATION 1 OF Name: ALDEN REYES Room-Bed/Loc/Type: -/ /EB Admit Date: 08/07/2000 MEDICAL IMAGING CONSULTATION 2 OF 1 1 Performing Organization Address City/State/Zipcode Ph one Number MCKESSON documented in this encounter Visit Diagnoses Not on filedocumented in this encounter
--- OUTSIDE RECORDS SUMMARY | 2019-09-30 03:12 | XMS REPORT | Encounter Summary ---
Author Author [facility] Address Unknown Phone Unavailable Care Team Providers Care House Piping Inspector Name Role Phone PCP Unavailable Encounter Details Care Team Description Date Type Department Malika Ocasio MD [address] [facility] [address] [place] [address] [phone] 10/08/2000 [facility] [address] [place] [address] Social History Date Tobacco Use Types Packs/Day Years Used Never Assessed Sex Assigned at Date Recorded Not on file Industry Job Start Date Occupation Not on file Not on file Not on file Travel End Travel History Travel Start No recent travel history available. documented as of this encounter Miscellaneous Notes * Operative Note - ProviderMadi MD - 09/19/2013 9:25 PM [employer]OL PRINCIPAL Report OPR/mjp/[id number] [facility] Name: ALDEN REYES MRN/Unit #: [id number] Attending Physician: MALIKA OCASIO MD Referring Physician: REFERRING NO Date of Surgery: 10-08-00 PREOPERATIVE DIAGNOSIS: 1. Acute abdomen, right lower quadrant - probable appendicitis. POSTOPERATIVE DIAGNOSIS: 1. Acute abdomen, right lower quadrant - infarcted, torsed sigmoid colon, epiploic appendage in right lower quadrant. PROCEDURE: 1. Diagnostic laparoscopy. 2. Laparoscopic appendectomy. 3. Laparoscopic resection of infarcted sigmoid colon, epiploic appendage. Surgeon: Paulino Ocasio MD Tattoo Artist: DAVIS Curry Estimated blood loss: Minimal Counts: [...] OPERATION / PROCEDURE NOTE 1 OF 2 [employer] SCHOOL PRINCIPAL documented in this encounter Plan of Treatment Not on filedocumented as of this encounter Procedures Comments Procedure Name Priority Date/Time Associated Diag nosis DIFFERENTIAL Routine 10/07/2000 8:10 PM MIDDLE SCHOOL PRINCIPAL CBC AND DIFF (MANUAL DIFF Routine 10/07/2000 IF NECESSARY) 8:10 PM MIDDLE SCHOOL PRINCIPAL documented in this encounter Results * DIFFERENTIAL (10/07/2000 8:10 PM MIDDLE SCHOOL PRINCIPAL) % Neutrophils 61 45 - 78 % [...] TH/UL SUNQUEST Specimen Blood Performing Organization Address [facility] Ph one Number SLRL [address] [place], [place] [address] SUNQUEST * CBC and Diff (manual diff if necessary) (10/07/2000 8:10 PM MIDDLE SCHOOL PRINCIPAL) WBC 9.0 4.0 - 11.0 TH/UL SUNQUEST [...] TH/UL SUNQUEST Specimen Blood Performing Organization Address [facility] one Number [facility]RL [address] [address] SUNQUEST documented in this encounter Visit Diagnoses Not on filedocumented in this encounter
--- OUTSIDE RECORDS SUMMARY | 2019-09-30 03:12 | XMS REPORT | Clinical Summary ---
Author Author [facility] Organization [facility] Address Unknown Phone Unavailable Care Team Providers Care Lean Manufacturing Leader Name Role Phone Maco Snider MD Unavailable [...] you expected, contact Release of Information in [facility] Information Management department at [phone] for further assistan ce in locating additional records.[facility] Allergies Comments Active Allergy Reactions Severity [...] PM CDT Temperature 14 08/20/2011 10:54 PM CHANNEL PROCESS PLANT OPERATOR Respiratory Rate 97% 03/18/2013 11:30 PM CDT [...]
--- OUTSIDE RECORDS SUMMARY | 2019-09-30 03:13 | XMS REPORT | Continuity of Care Document ---
Author Organization Unknown Address Unknown Phone Unavailable Allergies Active Description Code Type Severity Reaction Onset Reported/Identified Relationship to Patient Clinical Status Yes ropinirole [id number] Drug Allerg y Unknown N/A 03/16/2015 Yes droperidol [id number] Drug Allerg y Moderate HYPERACTIVITY, 06/19/2017 Yes NSAIDS (Non-Steroidal Anti-Inflamma [id number] Drug Allergy Moderate KIDNEY FUNCTION 06/19/2017 Yes fentanyl [id number] Drug Allergy Unknown N/A 06/19/2017 Yes prochlorperazine [id number] Drug Allergy Unknown N/A 06/19/2017 Medications There is no data. Problems Date Dx Coded Attending Type Code Diagnosis Diagnosed By 03/16/2015 LUIS DENISE, AGATHA Vargas Ot 789.09 ABDOMINAL PAIN, OTHER SPECIFIED SITE 03/26/2015 DAISY ARIZA APRN Ot 724 .2 LUMBAGO 03/26/2015 DAISY ARIZA PORCELAIN ENAMELING SUPERVISOR Ot 789.09 ABDOMINAL PAIN, OTHER SPECIFIED SITE 03/26/2015 DAISY ARIZA PORCELAIN ENAMELING SUPERVISOR Ot V58.69 OTH MED,LT,CURRENT USE 08/28/2015 EDGAR DENISE, SABRINA Barreto Ot F17.211 NICOTINE DEPENDENCE, CIGARETTES, IN SIMON 08/28/2015 SABRINA HERNÁNDEZ MD Ot I25.10 ATHSCL HEART DISEASE OF [place] CORONARY 08/28/2015 SABRINA HERNÁDNEZ MD Ot K20.9 ESOPHAGITIS, UNSPECIFIED 08/28/2015 SABRINA [...] VALGUS (ACQUIRED), RIGHT FOOT 10/31/2016 YVONNE DPM, ILA Q Ot M77. 41 METATARSALGIA, RIGHT FOOT [...] Ot I25. 10 ATHSCL HEART DISEASE OF [place] CORONARY 07/01/2017 YVONNE DPM, LIA Q Ot K21. 9 GASTRO-ESOPHAGEAL REFLUX DISEASE WITHOUT 07/01/2017 YVONNE DPM, LIA Q Ot M20. 12 HALLUX VALGUS (ACQUIRED), LEFT FOOT 07/01/2017 YVONNE DPM, LIA Q Ot Z79. 82 REGULATORY CONSULTANT (CURRENT) USE OF ASPIRIN 07/01/2017 YVONNE DPM, LIA Q Ot Z79.899 OTHER REGULATORY CONSULTANT (CURRENT) DRUG THERAPY 07/01/2017 YVONNE DPM, LIA [...] 33 OBSTRUCTIVE SLEEP APNEA (ADULT) (PEDIATR 07/02/2017 YVONNE DPM, LIA Q Ot I10 ESSENTIAL (PRIMARY) HYPERTENSION 07/02/2017 YVONNE DPM, LIA Q Ot I25. 10 ATHSCL HEART DISEASE OF [place] CORONARY 07/02/2017 YVONNE DPM, LIA Q Ot K21. 9 GASTRO-ESOPHAGEAL REFLUX DISEASE WITHOUT 07/02/2017 YVONNE DPM, LIA Q Ot M20. 12 HALLUX VALGUS (ACQUIRED), LEFT FOOT 07/02/2017 YVONNE DPM, LIA Q Ot Z79. 82 FCI (CURRENT) USE OF ASPIRIN 07/02/2017 YVONNE DPM, LIA Q Ot Z79.899 OTHER REGULATORY CONSULTANT (CURRENT) DRUG THERAPY 07/02/2017 YVONNE DPM, LIA [...] SCREENING FOR OTHER BACTER 10/27/2018 CAREY CARRANZA PORCELAIN ENAMELING SUPERVISOR Ot S59.911A UNSPECIFIED INJURY OF RIGHT FOREARM, INI 10/27/2018 CAREY CARRANZA PORCELAIN ENAMELING SUPERVISOR Ot S69.91XA UNSP INJURY OF RIGHT WRIST, HAND AND FIN 10/27/2018 TORI PRINGLE MD, Ot E78.0 0 PURE HYPERCHOLESTEROLEMIA, UNSPECIFIED 10/27/2018 TORI PRINGLE MD, Ot F41.9 ANXIETY DISORDER, UNSPECIFIED 10/27/2018 TORI PRINGLE MD, Ot G47.3 0 SLEEP APNEA, UNSPECIFIED 10/27/2018 TORI PRINGLE MD, Ot I10 ESSENTIAL (PRIMARY) HYPERTENSION 10/27/2018 TORI PRINGLE MD, Ot I25.1 0 ATHSCL HEART DISEASE OF [place] CORONARY 10/27/2018 TORI PRINGLE MD, Ot I25.2 [...] OF CORONARY ANGIOPLASTY IMPLANT 10/29/2018 CAREY CARRANZA PORCELAIN ENAMELING SUPERVISOR Ot S59.911A UNSPECIFIED INJURY OF RIGHT FOREARM, INI 10/29/2018 CAREY CARRANZA PORCELAIN ENAMELING SUPERVISOR Ot S69.91XA UNSP INJURY OF RIGHT WRIST, HAND AND FIN 11/05/2018 YVONNE DPM, LIA Q Ot M20. 11 HALLUX VALGUS (ACQUIRED), RIGHT FOOT 11/05/2018 YVONNE DPM, LIA Q Ot Z01.818 ENCOUNTER FOR OTHER PREPROCEDURAL EXAMIN 11/05/2018 YVONNE DPM, LIA Q Ot Z11. 2 ENCOUNTER FOR SCREENING FOR OTHER BACTER 11/05/2018 CAREY CARRANZA PORCELAIN ENAMELING SUPERVISOR Ot S59.911A UNSPECIFIED INJURY OF RIGHT FOREARM, INI 11/05/2018 CAREY CARRANZA PORCELAIN ENAMELING SUPERVISOR Ot S69.91XA UNSP INJURY OF RIGHT WRIST, HAND AND FIN 11/10/2018 CAREY CARRANZA PORCELAIN ENAMELING SUPERVISOR Ot S59.911A UNSPECIFIED INJURY OF RIGHT FOREARM, INI 11/10/2018 CAREY CARRANZA PORCELAIN ENAMELING SUPERVISOR Ot S69.91XA UNSP INJURY OF RIGHT WRIST, HAND AND FIN 11/23/2018 CAREY CARRANZA PORCELAIN ENAMELING SUPERVISOR Ot M25.561 PAIN IN RIGHT KNEE 01/14/2019 CAREY CARRANZA PORCELAIN ENAMELING SUPERVISOR Ot S59.911A UNSPECIFIED INJURY OF RIGHT FOREARM, INI 01/14/2019 CAREY CARRANZA PORCELAIN ENAMELING SUPERVISOR Ot S69.91XA UNSP INJURY OF RIGHT WRIST, HAND AND FIN 02/09/2019 CAREY CARRANZA Steve PORCELAIN ENAMELING SUPERVISOR Ot S59.911A UNSPECIFIED INJURY OF RIGHT FOREARM, INI 02/09/2019 CAREY CARRANZA S PORCELAIN ENAMELING SUPERVISOR Ot S69.91XA UNSP INJURY OF RIGHT WRIST, HAND AND FIN 02/09/2019 TERECAREY Dos Santos S PORCELAIN ENAMELING SUPERVISOR Ot S59.911A UNSPECIFIED INJURY OF RIGHT FOREARM, INI 02/09/2019 TERECAREY Dos Santos S PORCELAIN ENAMELING SUPERVISOR Ot S69.91XA UNSP INJURY OF RIGHT WRIST, HAND AND FIN 02/09/2019 CAREY CARRANZA S PORCELAIN ENAMELING SUPERVISOR Ot S59.911A UNSPECIFIED INJURY OF RIGHT FOREARM, INI 02/09/2019 HERMANN CARRANZAANDA S PORCELAIN ENAMELING SUPERVISOR Ot S69.91XA UNSP INJURY OF RIGHT WRIST, HAND AND FIN 02/10/2019 CAREY CARRANZA S PORCELAIN ENAMELING SUPERVISOR Ot S59.911A UNSPECIFIED INJURY OF RIGHT FOREARM, INI 02/10/2019 TERE CAREY S PORCELAIN ENAMELING SUPERVISOR Ot S69.91XA UNSP INJURY OF RIGHT WRIST, HAND AND FIN 04/23/2019 YVONNE DPM, LIA Q Ot M20. 11 HALLUX VALGUS (ACQUIRED), RIGHT FOOT 04/23/2019 YVONNE DPM, LIA Q Ot Z01.818 ENCOUNTER FOR OTHER PREPROCEDURAL EXAMIN 04/23/2019 YVONNE DPM, LIA Q Ot Z11. 2 ENCOUNTER FOR SCREENING FOR OTHER BACTER 04/23/2019 CAREY CARRANZA PORCELAIN ENAMELING SUPERVISOR Ot S59.911A UNSPECIFIED INJURY OF RIGHT FOREARM, INI 04/23/2019 CAREY CARRANZA PORCELAIN ENAMELING SUPERVISOR Ot S69.91XA UNSP INJURY OF RIGHT WRIST, HAND AND FIN 04/23/2019 CAREY CARRANZA PORCELAIN ENAMELING SUPERVISOR Ot M25.561 PAIN IN RIGHT KNEE 04/27/2019 JENELLE LUU NATURAL GAS PLANT SUPERVISOR Ot M25.531 PAIN IN RIGHT WRIST 08/28/2019 YVONNE DPM, LIA Q Ot M20. 11 HALLUX VALGUS (ACQUIRED), RIGHT FOOT 08/28/2019 YVONNE DPM, LIA Q Ot Z01.818 ENCOUNTER FOR OTHER PREPROCEDURAL EXAMIN 08/28/2019 YVONNE DPM, LIA Q Ot Z11. 2 ENCOUNTER FOR SCREENING FOR OTHER BACTER 08/28/2019 CAREY CARRANZA PORCELAIN ENAMELING SUPERVISOR Ot S59.911A UNSPECIFIED INJURY OF RIGHT FOREARM, INI 08/28/2019 CAREY CARRANZA PORCELAIN ENAMELING SUPERVISOR Ot S69.91XA UNSP INJURY OF RIGHT WRIST, HAND AND FIN 08/28/2019 CAREY CARRANZA PORCELAIN ENAMELING SUPERVISOR Ot M25.561 PAIN IN RIGHT KNEE 08/28/2019 JENELLE LUU NATURAL GAS PLANT SUPERVISOR Ot M25.531 PAIN IN RIGHT WRIST 09/14/2019 YVONNE DPM, LIA Q Ot M20. 11 HALLUX VALGUS (ACQUIRED), RIGHT FOOT 09/14/2019 YVONNE DPM, LIA Q Ot Z01.818 ENCOUNTER FOR OTHER PREPROCEDURAL EXAMIN 09/14/2019 YVONNE DPM, LIA Q Ot Z11. 2 ENCOUNTER FOR SCREENING FOR OTHER BACTER 09/14/2019 CAREY CARRANZA PORCELAIN ENAMELING SUPERVISOR Ot S59.911A UNSPECIFIED INJURY OF RIGHT FOREARM, INI 09/14/2019 CAREY CARRANZA PORCELAIN ENAMELING SUPERVISOR Ot S69.91XA UNSP INJURY OF RIGHT WRIST, HAND AND FIN 09/14/2019 CAREY CARRANZA PORCELAIN ENAMELING SUPERVISOR Ot M25.561 PAIN IN RIGHT KNEE 09/14/2019 JENELLE LUU NATURAL GAS PLANT SUPERVISOR Ot M25.531 PAIN IN RIGHT WRIST 09/16/2019 [...] Ot I25.11 0 ATHSCL HEART DISEASE OF [place] COR ART W 09/16/2019 JESSY DO JOSÉ [...] Ot Z95.5 PRESENCE OF CORONARY ANGIOPLASTY IMPLANT 09/26/2019 JIMÉNEZ DO, JOSÉ MIGUEL Ot E05.90 THYROTOXICOSIS, UNSP WITHOUT THYROTOXIC 09/26/2019 JIMÉNEZ DO, JOSÉ MIGUEL Ot E78.00 PURE HYPERCHOLESTEROLEMIA, UNSPECIFIED 09/26/2019 JIMÉNEZ DO, JOSÉ MIGUEL Ot F17.21 0 NICOTINE DEPENDENCE, CIGARETTES, UNCOMPL 09/26/2019 JIMÉNEZ DO, JOSÉ MIGUEL Ot F41.9 ANXIETY DISORDER, UNSPECIFIED 09/26/2019 JIMÉNEZ DO, JOSÉ MIGUEL Ot G47.30 SLEEP APNEA, UNSPECIFIED 09/26/2019 JIMÉNEZ DO, JOSÉ MIGUEL Ot I10 ESSENTIAL (PRIMARY) HYPERTENSION 09/26/2019 JIMÉNEZ DO, JOSÉ MIGUEL Ot I25.11 0 ATHSCL HEART DISEASE OF [place] COR ART W 09/26/2019 JIMÉNEZ DO, JOSÉ MIGUEL Ot I25.2 OLD MYOCARDIAL INFARCTION 09/26/2019 JIMÉNEZ DO, JOSÉ MIGUEL Ot J40 BRONCHITIS, NOT SPECIFIED ACUTE OR CH 09/26/2019 JIMÉNEZ DO, JOSÉ MIGUEL Ot K21.0 GASTRO-ESOPHAGEAL REFLUX DISEASE WITH ES 09/26/2019 JIMÉNEZ DO, JOSÉ MIGUEL Ot M10.9 GOUT, UNSPECIFIED 09/26/2019 JIMÉNEZ DO, JOSÉ MIGUEL Ot N40.0 BENIGN PROSTATIC HYPERPLASIA WITHOUT LOW 09/26/2019 JIMÉNEZ DO, JOSÉ MIGUEL Ot Z86.73 PRSNL HX OF TIA (TIA), AND CEREB INFRC W 09/26/2019 JIMÉNEZ DO, JOSÉ MIGUEL Ot Z90.5 ACQUIRED ABSENCE OF KIDNEY 09/26/2019 JIMÉNEZ DO, JOSÉ MIGUEL Ot Z91.14 PATIENT'S OTHER NONCOMPLIANCE WITH MEDIC 09/26/2019 JIMÉNEZ DO, JOSÉ MIGUEL Ot Z95.5 PRESENCE [...] Status Pt. Type Provider Facility Loc./Unit Complaint [id number] 09/28/2019 13:20:00 [facility] [id number] 11/20/2018 10:40:00 Document Registration [id number] 09/14/2019 15:39:00 14:15:00 DIS Outpatient JOSÉ MIGUEL JIMÉNEZ DO Via [facility] CATH INTRACTABLE CHEST PAIN [id number] 05/06/2019 13:30:00 23:59:59 CLS Preadmit JENELLE LUU Via [facility] RAD SPRAIN OF CARPAL JOINT OF RIGHT WRIST [id number] 04/23/2019 14:08:00 23:59:59 CLS Outpatient JENELLE LUU Via [facility] RAD FS M25.531 [id number] 11/20/2018 11:14:00 23:59:59 CLS Outpatient CAREY CARRANZA PORCELAIN ENAMELING SUPERVISOR Via [facility] RAD FS M25.461 M25.561 [id number] 10/27/2018 17:12:00 20:55:00 DIS Emergency TORI PRINGLE MD Via [facility] ER FS RT SIDE GROIN PAIN [id number] 10/24/2018 11:17:00 23:59:59 CLS Outpatient CAREY CARRANZA PORCELAIN ENAMELING SUPERVISOR Via [facility] RAD FS M79.631 S69.91XA [id number] 07/01/2017 09:19:00 13:18:00 DIS Outpatient YVONNE DPM LIA Q [facility] HALLUX RIGIDUS [id number] 06/19/2017 09:05:00 017 10:08:00 DIS Outpatient YVONNE DPM, LIA Q Via [facility] PREOP HALLUX RIGIDUS [id number] 10/26/2016 11:08:00 017 16:50:00 DIS Outpatient YVONNE DPM, LIA Q Via [facility] SDC RIGHT HALLUX [id number] 10/18/2016 11:31:00 017 23:59:59 CLS Outpatient YVONNE DPM, LIA Q Via [facility] PREOP RIGHT HALLUX [id number] 08/28/2015 02:52:00 016 07:46:00 DIS Emergency EDGAR DENISE, SABRINA Barreto Via [facility] ER CP [id number] 03/26/2015 18:19:00 015 20:12:00 DIS Emergency DAISY ARIZA APRN Via [facility] ER FALL/LFT KIDNEY PAIN/PA IN URIN [id number] 03/16/2015 20:20:00 015 23:17:00 DIS Emergency LUIS DENISE, AGATHA Vargas Via [facility] ER L FLANK PAIN
--- NOTE | 2019-09-30 17:06 | CARDIAC CATHETERIZATION ---
DATE OF SERVICE: 09/15/2019 CARDIAC CATHETERIZATION The patient is a 48-year-old gentleman who presented with chest pain. He reported a history of coronary stenting in the past. Due to suspicion of acute coronary syndrome, cardiac catheterization was carried out after having obtained an informed consent. DESCRIPTION OF PROCEDURE: He was brought to the cardiac catheterization laboratory. Right groin was prepared and draped in the usual sterile fashion. Lidocaine 1% was used for local anesthesia. Modified Seldinger technique was used to advance a 5-Mauritanian sheath into the right femoral artery. The 5-Mauritanian JL4 catheters were used for left coronary angiography. A 5-Mauritanian JR4 catheter was used for right coronary angiography. A 5-Mauritanian pigtail catheter was used for left heart catheterization and left ventricular angiography. The patient tolerated the procedure well. Following completion of the diagnostic procedure, angiography of the right femoral artery was carried out through the sheath and Mynx was used to achieve hemostasis. HEMODYNAMICS: Left ventricular end-diastolic pressure following coronary angiography was 9 mmHg. There is no significant pressure gradient on pullback across the aortic valve. Ascending aortic pressure was 126/85 with a mean of 101 mmHg. CORONARY ANGIOGRAPHY: Left main coronary artery was free of significant disease. Left anterior descending artery had a long stented segment in the proximal and mid portion. The left circumflex artery do not exhibit significant disease. Right coronary artery does not exhibit significant disease. Right coronary artery was dominant. LEFT VENTRICULAR ANGIOGRAPHY: Left ventricular angiography was carried out in the right anterior oblique projection. Global left ventricular systolic function is normal. Left ventricular ejection fraction is approximately 60%. CONCLUSIONS: 1. Patent stented segment in the proximal and mid left anterior descending. 2. No significant obstructive coronary artery disease. 3. Normal left ventricular end-diastolic pressure. 4. Left ventricular ejection fraction is 60%. Job ID: [id number] DocumentID: [id number] Dictated Date: 09/30/2019 15:40:55 Guillotine Operator Date: 09/30/2019 17:05:04 Dictated By: SARA WOLF MD, MA, FACP, FACC,
== END 2019-09-16 14:15 | disposition home or self-care (01) ==
LOC: EDUNIT# 09:52 → ER FS 09:53 → ICU 14:42 → UNDOADMIN 14:42 → ICU 15:39 → CATH 15:39 → ICU 17:32 → CATH 09-16 14:15 → UNDODISIN 09-16 14:15
PROVIDERS: ATTEND Internal Medicine
DX: I25.110 Atherosclerotic heart disease of native coronary artery with unstable angina pectoris (principal); J40 Bronchitis, not specified as acute or chronic; I25.2 Old myocardial infarction; I10 Essential (primary) hypertension; F17.210 Nicotine dependence, cigarettes, uncomplicated; G47.30 Sleep apnea, unspecified; E78.00 Pure hypercholesterolemia, unspecified; K21.0 Gastro-esophageal reflux disease with esophagitis; F41.9 Anxiety disorder, unspecified; N40.0 Benign prostatic hyperplasia without lower urinary tract symptoms; E05.90 Thyrotoxicosis, unspecified without thyrotoxic crisis or storm; M10.9 Gout, unspecified; Z95.5 Presence of coronary angioplasty implant and graft; Z86.73 Personal history of transient ischemic attack (TIA), and cerebral infarction without residual deficits; Z90.5 Acquired absence of kidney; Z91.14 Patient's other noncompliance with medication regimen
CPT/HCPCS: 36415; 71045; 71275; 80048; 80053; 80061; 83690; 83735; 83880; 84100; 84443; 84484; 85025; 85027; 85379; 85610; 85730; 87081; 93005; 93306; 93458; 94640; 96361; 96374; 96376; G0378

== ENCOUNTER 2020-07-02 17:11 | Emergency (ER) | payer SELFPAY ==
[~2020-07-02] VITALS: Ht 175 cm; Wt 90.7 kg
[~2020-07-02 17:11] MED LIST changes: +MTP25TSR PO; -OXYC-465; +OXYC-556; -PANT40TA3; +PANT40TA52; +PRED10TA22 PO
[2020-07-02] MEDS ORDERED: ASPIRIN 81 MG CHEW (CHILDREN'S ASA) PO ONE (17:30)
--- NOTE | 2020-07-02 17:34 | ED Respiratory ---
General Chief Complaint: Respiratory Problems Stated Complaint: SOA Source: patient History of Present Illness Date Seen by Provider: Jul 02, 2020 Time Seen by Provider: 17:25 Initial Comments 49-year-old male with past medical history significant for coronary artery disease, including 2 stents. History of present illness, patient diagnosed with COVID-19 4 days ago and is been feeling body aches and chills with a cough and intermittent shortness of air. 2 hours prior to arrival tonight, he had some left-sided chest pain that has been persistent. He did not take any nitroglycerin as he didn't have any, but states that he hasn't taken any in over a year. Allergies and Home Medications Allergies Coded Allergies: NSAIDS (Non-Steroidal Anti-Inflamma (Verified Allergy, Intermediate, KIDNEY FUNCTION, 06/19/17) droperidol (Verified Allergy, Intermediate, HYPERACTIVITY, TACHYCARDIA, 06/19/17) fentanyl (Verified Allergy, Unknown, 06/19/17) prochlorperazine (Verified Allergy, Unknown, 06/19/17) Home Medications Allopurinol 300 Mg Tablet, 300 MG PO DAILY, (Reported) Aspirin 81 Mg Tablet.dr, 81 MG PO DAILY, (Reported) Atorvastatin Calcium 40 Mg Tablet, 40 MG PO HS, (Reported) Diazepam 5 Mg Tablet, 5 MG PO PRN, (Reported) Duloxetine HCl 30 Mg Capsule.dr, 30 MG PO DAILY, (Reported) Famotidine 20 Mg Tablet, 20 MG PO BID, (Reported) Gabapentin 300 Mg Capsule, 300 MG PO TID, (Reported) Hydrocodone Bit/Acetaminophen 1 Each Tablet, 1-2 TAB PO Q4-6HR PRN for PAIN PRN PAIN Prescribed by: LIA RUSSELL on 07/01/17 1116 Hydrocodone Bit/Acetaminophen 1 Tab Tab, 1 EACH PO Q8H PRN for PAIN-SEVERE Prescribed by: TORI PRINGLE on 10/27/182024 Lipase/Protease/Amylase 1 Each Capsule.dr, 1 EACH PO TID, (Reported) Lisinopril 10 Mg Tablet, 10 MG PO DAILY, (Reported) Metoclopramide HCl 10 Mg Tablet, 10 MG PO QID, (Reported) Metoprolol Succinate 25 Mg Tab.er.24h, 25 MG PO DAILY Prescribed by: MARELY BREAUX on 09/15/19 1430 Nitroglycerin 0.4 Mg Tab.subl, 0.4 MG SL PRN, (Reported) Omeprazole 20 Mg Tablet.dr, 20 MG PO DAILY, (Reported) Ondansetron HCl 4 Mg Tab, 4 MG PO PRN, (Reported) Pantoprazole Sodium 40 Mg Tablet.dr, 40 MG PO DAILY, (Reported) Prednisone 10 Mg Tab.ds.pk, 20 MG PO DAILY Take 6 tabs(60mg)daily,decrease by 1 tab(10MG)daily. Prescribed by: JOSÉ MIGUEL JIMÉNEZ on 09/16/19 0926 Sucralfate 1 Gm Tablet, 1 GM PO QID, (Reported) Patient Home Medication List Home Medication List Reviewed: Yes Review of Systems Review of Systems Constitutional: No chills, No dizziness, No fever; malaise EENTM: no symptoms reported Respiratory: cough, short of breath; No stridor, No wheezing Cardiovascular: see HPI, chest pain; No edema, No palpitations, No syncope Gastrointestinal: No abdominal pain, No constipation, No diarrhea, No loss of appetite, No nausea, No vomiting Musculoskeletal: No back pain, No joint pain Skin: No change in color, No rash Past Aavjpoe-Bnetnd-Ahmqai Hx Past Med/Social Hx: Reviewed Nursing Past Med/Soc Hx Patient Social History Type Used: Cigarettes Former Smoker, Quit: Oct 18, 2012 2nd Hand Smoke Exposure: Yes Recent Hopitalizations: No Immunizations Up To Date Date of Influenza Vaccine: Apr 21, 2019 Seasonal Allergies Seasonal Allergies: Yes Past Medical History Surgeries: Yes (RIGHT NEPHRECTOMY, LEFT KNEE SCOPE, R WRIST) Appendectomy, Coronary Stent, Gallbladder, Nephrectomy Respiratory: Yes Sleep Apnea Currently Using CPAP: Yes Cardiac: Yes (STENTS X 2, LAST HEART CATH 2014) Coronary Artery Disease, Heart Attack, High Cholesterol, Hypertension Neurological: Yes (TIA X2 LAST ONE 2011) TIA Reproductive Disorders: No Sexually Transmitted Disease: Yes HIV/AIDS: No Kidney Stones Gastrointestinal: Yes Gastroesophageal Reflux, Esophagitis Musculoskeletal: No Endocrine: Yes Hyperthyroidism Loss of Vision: Bilateral Hearing Impairment: Denies Cancer: No Psychosocial: Yes Anxiety Integumentary: No Blood Disorders: No Adverse Reaction/Blood Tranf: No (N/A) Family Medical History Cardiovascular disease 19 FATHER Colon cancer 19 FATHER Diabetes mellitus 19 FATHER 19 MOTHER G8 BROTHER Hypertension 19 FATHER 19 MOTHER G8 BROTHER Myocardial infarction 19 FATHER 19 MOTHER No Pertinent Family Hx Physical Exam Vital Signs - First Documented 07/02/20 17:36 Temp 36.9 Pulse 95 Resp 17 B/P (MAP) 146/103 (117) Pulse Ox 98 Capillary Refill : Height: 5'9.00" Weight: 173lbs. 0oz. [id number]; 28.27 BMI Method:Stated General Appearance: WD/WN, no apparent distress HEENT: PERRL/EOMI, normal ENT inspection Neck: non-tender, full range of motion, supple Respiratory: no respiratory distress, no accessory muscle use; No decreased breath sounds, No accessory muscle use; rhonchi; No wheezing Cardiovascular: normal peripheral pulses, regular rate, rhythm, no edema, no gallop, no JVD, no murmur Gastrointestinal: non tender, soft Extremities: normal range of motion, non-tender, normal inspection Neurologic/Psychiatric: no motor/sensory deficits, alert, normal mood/affect, oriented x 3 Skin: normal color, warm/dry Progress/Results/Core Measures Suspected Sepsis SIRS Temperature: Pulse: Respiratory Rate: Laboratory Tests 07/02/20 17:32: White Blood Count 5.8 Blood Pressure / Mean: Laboratory Tests 07/02/20 17:32: Creatinine 1.05, Platelet Count 161, Total Bilirubin 0.8 Results/Orders Lab Results Laboratory Tests Test 07/02/20 17:32 07/02/20 20:30 Range/Units White Blood Count 5.8 4.3-11.0 10^3/uL Red Blood Count 5.73 4.35-5.85 10^6/uL Hemoglobin 16.3 13.3-17.7 G/DL Hematocrit 48 40-54 % Mean Corpuscular Volume 83 80-99 FL Mean Corpuscular Hemoglobin 28 25-34 PG Mean Corpuscular Hemoglobin Concent 34 32-36 G/DL Red Cell Distribution Width 13.5 10.0-14.5 % Platelet Count 161 130-400 10^3/uL Mean Platelet Volume 11.3 H 7.4-10.4 FL Immature Granulocyte % (Auto) 0 % Neutrophils (%) (Auto) 43 42-75 % Lymphocytes (%) (Auto) 45 H 12-44 % Monocytes (%) (Auto) 11 0-12 % Eosinophils (%) (Auto) 1 0-10 % Basophils (%) (Auto) 0 0-10 % Neutrophils # (Auto) 2.5 1.8-7.8 X 10^3 Lymphocytes # (Auto) 2.6 1.0-4.0 X 10^3 Monocytes # (Auto) 0.7 0.0-1.0 X 10^3 Eosinophils # (Auto) 0.0 0.0-0.3 10^3/uL Basophils # (Auto) 0.0 0.0-0.1 10^3/uL Immature Granulocyte # (Auto) 0.0 0.0-0.1 10^3/uL Sodium Level 136 135-145 MMOL/L Potassium Level 3.8 3.6-5.0 MMOL/L Chloride Level 101 98-107 MMOL/L Carbon Dioxide Level 23 21-32 MMOL/L Anion Gap 12 5-14 MMOL/L Blood Urea Nitrogen 24 H 7-18 MG/DL Creatinine 1.05 0.60-1.30 MG/DL Estimat Glomerular Filtration Rate > 60 BUN/Creatinine Ratio 23 Glucose Level 100 70-105 MG/DL Calcium Level 9.5 8.5-10.1 MG/DL Corrected Calcium 9.1 8.5-10.1 MG/DL Total Bilirubin 0.8 0.1-1.0 MG/DL Aspartate Amino Transf (AST/SGOT) 42 H 5-34 U/L Alanine Aminotransferase (ALT/SGPT) 76 H 0-55 U/L Alkaline Phosphatase 58 40-136 U/L Troponin I < 0.30 <0.30 NG/ML Total Protein 7.7 6.4-8.2 GM/DL Albumin 4.5 3.2-4.5 GM/DL My Orders Orders - CLAUDETTE GARCIA DO Ed Iv/Invasive Line Start (07/02/20 17:21) Cbc With Automated Diff (07/02/20 17:21) Comprehensive Metabolic Panel (07/02/20 17:21) Troponin I Fs (07/02/20 17:21) Ekg Tracing (07/02/20 17:21) Chest 1 View Ap/Pa Only (07/02/20 17:21) Nitroglycerin 0.4 Mg Btl 25's (Nitrostat (07/02/20 17:30) Aspirin Chewable Tablet (Baby Aspirin Ch (07/02/20 17:30) Troponin I Fs (07/02/20 20:30) Ekg Tracing (07/02/20 20:30) Medications Given in ED Current Medications Medications Dose Ordered Sig/Ml Route Start Time Stop Time Status Last Admin Dose Admin Aspirin 324 mg ONCE ONCE PO 07/02/20 17:30 07/02/20 17:31 DC 07/02/20 17:34 324 MG Nitroglycerin 0.4 mg NEEDED PRN SL 07/02/20 17:30 07/02/20 17:43 0.4 MG Vital Signs/I&O 07/02/20 17:36 Temp 36.9 Pulse 95 Resp 17 B/P (MAP) 146/103 (117) Pulse Ox 98 Capillary Refill : ECG Initial ECG Impression Date: Jul 02, 2020 Initial ECG Impression Time: 17:30 Initial ECG Rate: 70 Initial ECG Rhythm: Normal Sinus Initial ECG Intervals: Normal Initial ECG Impression: Normal EKG : EKG Time: 20:25 Rate: 58 Rhythm: Normal Sinus Intervals: Normal ECG Comparisson: Unchanged (as compared to initial ECG (3hrs after)) ECG Impression: Normal Diagnostic Imaging Diagonstic Imaging: Xray Comments COMPARISON: 09/16/2019. EXAMINATION: Single frontal view of the chest was obtained. FINDINGS: Normal heart size and pulmonary vascularity. The lungs are well aerated and clear. No large pleural effusion or pneumothorax is seen. The visualized osseous structures show no acute abnormality. IMPRESSION: No acute cardiopulmonary process. Dictated on workstation # [id number] Dict: 07/02/201739 Trans: 07/02/201746 [facility] [id number] Interpreted by: DENISSE LLOYD MD Electronically signed by: Departure Impression Primary Impression: Chest pain Qualified Codes: R07.9 - Chest pain, unspecified Disposition: 01 HOME, SELF-CARE Condition: Stable Departure-Patient Inst. Referrals: [facility] (PCP) Primary Care Physician CAREY CARRANZA APRN (Family) Primary Care Physician Patient Instructions: Chest Pain (DC) Add. Discharge Instructions: Call your Chemistry Technical Officer on Saturday morning to schedule a follow up appointment regarding your chest discomfort. If your pain gets worse, follow up promptly to the nearest ER All discharge instructions reviewed with patient and/or family. Voiced understanding. Scripts Nitroglycerin (Nitroglycerin) 0.4 Mg Tab.subl 0.4 MG SL UD PRN for CHEST PAIN, #20 TAB Prov: ROVENSTINE,CLAUDETTE L DO 07/02/20 CLAUDETTE GARCIA DO Jul 02, 2020 17:34
[2020-07-02] MEDS: NITROGLYCERIN 0.4 MG SL TABS BTL 25'S SL PRN ×2 (17:35→17:43)
[2020-07-02 17:40] LABS: BASOPHILS % (AUTO) 0 % (0-10); EOSINOPHILS % (AUTO) 1 % (0-10); HEMATOCRIT 48 % (40-54); HEMOGLOBIN 16.3 G/DL (13.3-17.7); LYMPHOCYTES % (AUTO) 45 % (12-44); MEAN CORPUSCULAR HEMOGLOBIN 28 PG (25-34); MEAN CORPUSCULAR HGB CONC 34 G/DL (32-36); MEAN CORPUSCULAR VOLUME 83 FL (80-99); MEAN PLATELET VOLUME 11.3 FL (7.4-10.4); MONOCYTES % (AUTO) 11 % (0-12); NEUTROPHILS % (AUTO) 43 % (42-75); PLATELET COUNT 161 10^3/uL (130-400); WHITE BLOOD COUNT 5.8 10^3/uL (4.3-11.0)
[2020-07-02 17:41] LABS: LYMPHOCYTES # (AUTO) 2.6 X 10^3 (1.0-4.0); MONOCYTES # (AUTO) 0.7 X 10^3 (0.0-1.0); NEUTROPHILS # (AUTO) 2.5 X 10^3 (1.8-7.8)
--- NOTE | 2020-07-02 17:48 | Diagnostic Imaging Report ---
INDICATION: Chest pain. Covid positive patient. COMPARISON: 09/16/2019. EXAMINATION: Single frontal view of the chest was obtained. FINDINGS: Normal heart size and pulmonary vascularity. The lungs are well aerated and clear. No large pleural effusion or pneumothorax is seen. The visualized osseous structures show no acute abnormality. IMPRESSION: No acute cardiopulmonary process. Dictated by: Dictated on workstation # [id number]
[2020-07-02 18:04] LABS: POTASSIUM 3.8 MMOL/L (3.6-5.0); SODIUM 136 MMOL/L (135-145)
[2020-07-02 18:05] LABS: ALANINE AMINOTRANSFERASE 76 U/L (0-55); ALBUMIN 4.5 GM/DL (3.2-4.5); ALKALINE PHOSPHATASE 58 U/L (40-136); BILIRUBIN,TOTAL 0.8 MG/DL (0.1-1.0); BUN/CREATININE RATIO 23; CALCIUM 9.5 MG/DL (8.5-10.1); CARBON DIOXIDE 23 MMOL/L (21-32); CHLORIDE 101 MMOL/L (98-107); CREATININE SERUM 1.05 MG/DL (0.60-1.30); GFR ESTIMATED > 60; GLUCOSE 100 MG/DL (70-105); TOTAL PROTEIN 7.7 GM/DL (6.4-8.2)
[2020-07-02] MEDS ORDERED: NITR0.4T39 SL (21:09)
[2020-07-02 21:48] VITALS: BP 136/92
== END 2020-07-02 21:48 | disposition home or self-care (01) ==
LOC: EDUNIT# 17:11 → ER FS 17:13
DX: R07.9 Chest pain, unspecified (principal); I25.2 Old myocardial infarction; I10 Essential (primary) hypertension; E78.00 Pure hypercholesterolemia, unspecified; K21.9 Gastro-esophageal reflux disease without esophagitis; F41.9 Anxiety disorder, unspecified; Z83.3 Family history of diabetes mellitus; Z82.49 Family history of ischemic heart disease and other diseases of the circulatory system; Z80.0 Family history of malignant neoplasm of digestive organs; Z86.73 Personal history of transient ischemic attack (TIA), and cerebral infarction without residual deficits; Z95.5 Presence of coronary angioplasty implant and graft; Z95.9 Presence of cardiac and vascular implant and graft, unspecified; Z88.6 Allergy status to analgesic agent; Z88.8 Allergy status to other drugs, medicaments and biological substances; Z87.891 Personal history of nicotine dependence; Z79.52 Long term (current) use of systemic steroids; Z79.82 Long term (current) use of aspirin
CPT/HCPCS: 36415; 71045; 80053; 84484; 85025; 93005

== ENCOUNTER 2020-10-25 10:08 | Emergency (ER) | payer SELFPAY ==
[~2020-10-25] VITALS: Ht 175.2 cm; Wt 90.7 kg
[~2020-10-25 10:08] MED LIST changes: -LISI10TA2 PO; +LISI10TA25 PO; +NITR0.4T39 SL
[2020-10-25 10:20] VITALS: BP 149/96
--- NOTE | 2020-10-25 10:20 | ED Back Pain ---
General Chief Complaint: Back Problems Stated Complaint: LT FLANK PAIN History of Present Illness Date Seen by Provider: Oct 25, 2020 Time Seen by Provider: 10:20 Initial Comments 49-year-old male presents with left flank pain. Patient reports this morning. Reports that he cannot find a comfortable position. That he had a little bit of groin pain the last couple days on the right and not sure if that is related. He reports that he only has one kidney on the left side. He has had a kidney stone in the past. Denies any fever, chills, nausea vomiting abdominal pain. Allergies and Home Medications Allergies Coded Allergies: NSAIDS (Non-Steroidal Anti-Inflamma (Verified Allergy, Intermediate, KIDNEY FUNCTION, 06/19/17) droperidol (Verified Allergy, Intermediate, HYPERACTIVITY, TACHYCARDIA, 06/19/17) fentanyl (Verified Allergy, Unknown, 06/19/17) prochlorperazine (Verified Allergy, Unknown, 06/19/17) Home Medications Allopurinol 300 Mg Tablet, 300 MG PO DAILY, (Reported) Aspirin 81 Mg Tablet.dr, 81 MG PO DAILY, (Reported) Atorvastatin Calcium 40 Mg Tablet, 40 MG PO HS, (Reported) Diazepam 5 Mg Tablet, 5 MG PO PRN, (Reported) Duloxetine HCl 30 Mg Capsule.dr, 30 MG PO DAILY, (Reported) Famotidine 20 Mg Tablet, 20 MG PO BID, (Reported) Gabapentin 300 Mg Capsule, 300 MG PO TID, (Reported) Hydrocodone Bit/Acetaminophen 1 Each Tablet, 1-2 TAB PO Q4-6HR PRN for PAIN PRN PAIN Prescribed by: LIA RUSSELL on 07/01/17 1116 Hydrocodone Bit/Acetaminophen 1 Tab Tab, 1 EACH PO Q8H PRN for PAIN-SEVERE Prescribed by: TORI PRINGLE on 10/27/182024 Lipase/Protease/Amylase 1 Each Capsule.dr, 1 EACH PO TID, (Reported) Lisinopril 10 Mg Tablet, 10 MG PO DAILY, (Reported) Metoclopramide HCl 10 Mg Tablet, 10 MG PO QID, (Reported) Metoprolol Succinate 25 Mg Tab.er.24h, 25 MG PO DAILY Prescribed by: MARELY BREAUX on 09/15/19 1430 Nitroglycerin 0.4 Mg Tab.subl, 0.4 MG SL PRN, (Reported) Nitroglycerin 0.4 Mg Tab.subl, 0.4 MG SL UD PRN for CHEST PAIN Prescribed by: CLAUDETTE GARCIA on 07/02/202108 Omeprazole 20 Mg Tablet.dr, 20 MG PO DAILY, (Reported) Ondansetron HCl 4 Mg Tab, 4 MG PO PRN, (Reported) Pantoprazole Sodium 40 Mg Tablet.dr, 40 MG PO DAILY, (Reported) Prednisone 10 Mg Tab.ds.pk, 20 MG PO DAILY Take 6 tabs(60mg)daily,decrease by 1 tab(10MG)daily. Prescribed by: JOSÉ MIGUEL JIMÉNEZ on 09/16/19 09 Sucralfate 1 Gm Tablet, 1 GM PO QID, (Reported) Patient Home Medication List Home Medication List Reviewed: Yes Review of Systems Constitutional: No chills, No fever EENTM: no symptoms reported Respiratory: no symptoms reported Cardiovascular: no symptoms reported Gastrointestinal: no symptoms reported Genitourinary: see HPI Musculoskeletal: see HPI Skin: no symptoms reported Psychiatric/Neurological: No Symptoms Reported Past Vncwchd-Jismea-Pmghuu Hx Past Med/Social Hx: Reviewed Nursing Past Med/Soc Hx Patient Social History Type Used: Cigarettes Former Smoker, Quit: Oct 18, 2012 2nd Hand Smoke Exposure: Yes Recent Hopitalizations: No Immunizations Up To Date Date of Influenza Vaccine: Apr 21, 2019 Seasonal Allergies Seasonal Allergies: Yes Past Medical History Surgeries: Yes (RIGHT NEPHRECTOMY, LEFT KNEE SCOPE, R WRIST) Appendectomy, Coronary Stent, Gallbladder, Nephrectomy Respiratory: Yes Sleep Apnea Currently Using CPAP: Yes Cardiac: Yes (STENTS X 2) Coronary Artery Disease, Heart Attack, High Cholesterol, Hypertension Neurological: Yes (TIA X2 LAST ONE 2011) TIA Reproductive Disorders: No Sexually Transmitted Disease: Yes HIV/AIDS: No Genitourinary: Yes (one kidney removed) Kidney Stones Gastrointestinal: Yes Gastroesophageal Reflux, Esophagitis Musculoskeletal: No Endocrine: Yes Hyperthyroidism Loss of Vision: Bilateral Hearing Impairment: Denies Cancer: No Psychosocial: Yes Anxiety Integumentary: No Blood Disorders: No Adverse Reaction/Blood Tranf: No (N/A) Family Medical History Cardiovascular disease 19 FATHER Colon cancer 19 FATHER Diabetes mellitus 19 FATHER 19 MOTHER G8 BROTHER Hypertension 19 FATHER 19 MOTHER G8 BROTHER Myocardial infarction 19 FATHER 19 MOTHER No Pertinent Family Hx Physical Exam Vital Signs Vital Signs - First Documented 10/25/20 10:20 Temp 36.3 Pulse 66 Resp 16 B/P (MAP) 149/96 (113) Pulse Ox 99 O2 Delivery Room Air Capillary Refill : Height, Weight, BMI Height: 5'9.00" Weight: 173lbs. 0oz. 78.536699tz; 29.00 BMI Method:Stated General Appearance: Mild Distress HEENT: Normal ENT Inspection Neck: Non Tender, Supple Cardiovascular: Regular Rate, Rhythm, No Edema Respiratory: Lungs Clear, Normal Breath Sounds Gastrointestinal: Non Tender Back: CVA Tenderness (L) Extremity: Normal Capillary Refill, Normal Inspection Neurologic/Psychiatric: Alert, Oriented x3, Normal Mood/Affect, visual merchandising manager II-XII Norm as Tested Skin: Normal Color, Warm/Dry Progress/Results/Core Measures Results/Orders Lab Results Laboratory Tests Test 10/25/20 10:21 10/25/20 10:30 Range/Units Urine Color DARK YELLOW Urine Clarity CLEAR Urine pH 6.0 5-9 Urine Specific [place] >=1.030 1.016-1.022 Urine Protein NEGATIVE NEGATIVE Urine Glucose (UA) NEGATIVE NEGATIVE Urine Ketones NEGATIVE NEGATIVE Urine Nitrite NEGATIVE NEGATIVE Urine Bilirubin NEGATIVE NEGATIVE Urine Urobilinogen 0.2 < = 1.0 MG/DL Urine Leukocyte Esterase NEGATIVE NEGATIVE Urine RBC (Auto) NEGATIVE NEGATIVE Urine RBC NONE /HPF Urine WBC 0-2 /HPF Urine Squamous Epithelial Cells 0-2 /HPF Urine Crystals NONE /LPF Urine Bacteria NEGATIVE /HPF Urine Casts NONE /LPF Urine Mucus SMALL H /LPF Urine Culture Indicated NO White Blood Count 7.4 4.3-11.0 10^3/uL Red Blood Count 5.36 4.35-5.85 10^6/uL Hemoglobin 15.3 13.3-17.7 G/DL Hematocrit 45 40-54 % Mean Corpuscular Volume 84 80-99 FL Mean Corpuscular Hemoglobin 29 25-34 PG Mean Corpuscular Hemoglobin Concent 34 32-36 G/DL Red Cell Distribution Width 13.9 10.0-14.5 % Platelet Count 193 130-400 10^3/uL Mean Platelet Volume 10.6 H 7.4-10.4 FL Immature Granulocyte % (Auto) 1 % Neutrophils (%) (Auto) 64 42-75 % Lymphocytes (%) (Auto) 24 12-44 % Monocytes (%) (Auto) 9 0-12 % Eosinophils (%) (Auto) 2 0-10 % Basophils (%) (Auto) 1 0-10 % Neutrophils # (Auto) 4.7 1.8-7.8 X 10^3 Lymphocytes # (Auto) 1.2 1.0-4.0 X 10^3 Monocytes # (Auto) 0.7 0.0-1.0 X 10^3 Eosinophils # (Auto) 0.1 0.0-0.3 10^3/uL Basophils # (Auto) 0.0 0.0-0.1 10^3/uL Immature Granulocyte # (Auto) 0.0 0.0-0.1 10^3/uL Sodium Level 137 135-145 MMOL/L Potassium Level 4.3 3.6-5.0 MMOL/L Chloride Level 103 98-107 MMOL/L Carbon Dioxide Level 24 21-32 MMOL/L Anion Gap 10 5-14 MMOL/L Blood Urea Nitrogen 21 H 7-18 MG/DL Creatinine 0.97 0.60-1.30 MG/DL Estimat Glomerular Filtration Rate > 60 BUN/Creatinine Ratio 22 Glucose Level 97 70-105 MG/DL Calcium Level 9.7 8.5-10.1 MG/DL Corrected Calcium 9.4 8.5-10.1 MG/DL Total Bilirubin 0.4 0.1-1.0 MG/DL Aspartate Amino Transf (AST/SGOT) 19 5-34 U/L Alanine Aminotransferase (ALT/SGPT) 24 0-55 U/L Alkaline Phosphatase 59 40-136 U/L Total Protein 7.4 6.4-8.2 GM/DL Albumin 4.4 3.2-4.5 GM/DL My Orders Orders - GHASSAN CHURCHILL L DO Morphine Injection (Morphine Injection (10/25/20 10:30) Cbc With Automated Diff (10/25/20 10:28) Comprehensive Metabolic Panel (10/25/20 10:28) Ua Culture If Indicated (10/25/20 10:28) Ondansetron Injection (Zofran Injectio (10/25/20 10:30) Metoclopramide Injection (Reglan Injecti (10/25/20 10:28) Ed Iv/Invasive Line Start (10/25/20 10:28) Ct Abdomen/Pelvis Wo (10/25/20 10:28) Medications Given in ED Current Medications Medications Dose Ordered Sig/Ml Route Start Time Stop Time Status Last Admin Dose Admin Morphine Sulfate 2 mg ONCE ONCE IVP 10/25/20 10:30 10/25/20 10:31 DC 10/25/20 11:06 2 MG Ondansetron HCl 4 mg ONCE ONCE IVP 10/25/20 10:30 10/25/20 10:31 DC 10/25/20 11:06 4 MG Vital Signs/I&O 10/25/20 10:20 Temp 36.3 Pulse 66 Resp 16 B/P (MAP) 149/96 (113) Pulse Ox 99 O2 Delivery Room Air Progress Progress Note : Time: 11:28 Progress Note Patient with no significant findings on labs or CT. Patient with negative UA. Discussed with him that was possibly stone passed based on CT results. Recommend he try Tylenol, topical lidocaine with menthol, warm moist heat. If patient continues to have symptoms he should follow-up with his primary care provider for further outpatient evaluation Diagnostic Imaging Diagonstic Imaging: CT Plain Films/CT/US/NM/MRI: abdomen, pelvis Comments [facility], [place] NAME: JOSE J KLINE Jose [facility] REC#: [id number] PT STATUS: REG ER : 1970 PHYSICIAN: GHASSAN CHURCHILL DO ADMIT DATE: 10/25/20/ER FS Draft Date of Exam:10/25/20 CT ABDOMEN/PELVIS WO PROCEDURE: CT abdomen and pelvis without contrast. TECHNIQUE: Multiple contiguous axial images were obtained through the abdomen and pelvis without the use of intravenous contrast. Auto Exposure Controls were utilized during the CT exam to meet ALARA standards for radiation dose reduction. INDICATION: Possible left kidney stone. Left-sided flank pain. COMPARISON: CTA chest on 09/14/2019. FINDINGS: The heart is unremarkable. The lung bases are clear. The right kidney is absent. The left kidney demonstrates compensatory hypertrophy. There is prominence of the renal pelvis and calyces. No obstructing calculi are present. No perinephric fat stranding is seen. The urinary bladder is decompressed. The liver, spleen, pancreas, and adrenal glands have a normal appearance. The gallbladder is surgically absent. There is no pathologically enlarged mesenteric or retroperitoneal adenopathy. The bowel loops are nondilated. There is no free fluid or free air. No acute osseous abnormalities. There is scattered calcified aortic and iliac atherosclerotic plaque without aneurysm. There is no free air, loculated collection, or adenopathy in the pelvis. IMPRESSION: 1. Prominent left renal pelvis and calyces without evidence of perinephric fat stranding or obstructing calculi. This may represent recently passed renal stone versus congenitally prominent collecting system. The right kidney is surgically absent. Departure Impression Primary Impression: Left flank pain Disposition: HOME, SELF-CARE Condition: Stable Departure-Patient Inst. Referrals: CAREY CARRANZA APRN (PCP) Primary Care Physician [facility] (Family) Primary Care Physician Patient Instructions: Flank Pain (DC) Add. Discharge Instructions: 4% topical lidocaine with menthol as directed on package Warm moist heat to affected area Tylenol as needed Follow-up with your primary care provider if symptoms or not improving in 3 to 4 days or if they worsen. All discharge instructions reviewed with patient and/or family. Voiced understanding. GHASSAN CHURCHILL DO Oct 25, 2020 10:20
[2020-10-25] MEDS ORDERED: METOCLOPRAMIDE INJ 10 MG/2 ML (REGLAN) IVP STA (10:28)
[2020-10-25] MEDS ORDERED: ONDANSETRON 4 MG/2 ML (SDV) Z0FRAN IVP ONE (10:30)
[2020-10-25] MEDS ORDERED: morphine INJ 10 MG/ML 1ML (SYR OR VIAL) IVP ONE (10:30)
[2020-10-25 11:03] LABS: HEMATOCRIT 45 % (40-54); HEMOGLOBIN 15.3 G/DL (13.3-17.7); MEAN CORPUSCULAR HEMOGLOBIN 29 PG (25-34); MEAN CORPUSCULAR HGB CONC 34 G/DL (32-36); MEAN CORPUSCULAR VOLUME 84 FL (80-99); PLATELET COUNT 193 10^3/uL (130-400); WHITE BLOOD COUNT 7.4 10^3/uL (4.3-11.0)
[2020-10-25 11:04] LABS: BASOPHILS % (AUTO) 1 % (0-10); EOSINOPHILS # (AUTO) 0.1 10^3/uL (0.0-0.3); EOSINOPHILS % (AUTO) 2 % (0-10); LYMPHOCYTES # (AUTO) 1.2 X 10^3 (1.0-4.0); LYMPHOCYTES % (AUTO) 24 % (12-44); MEAN PLATELET VOLUME 10.6 FL (7.4-10.4); MONOCYTES # (AUTO) 0.7 X 10^3 (0.0-1.0); MONOCYTES % (AUTO) 9 % (0-12); NEUTROPHILS # (AUTO) 4.7 X 10^3 (1.8-7.8); NEUTROPHILS % (AUTO) 64 % (42-75)
[2020-10-25 11:05] LABS: BACTERIA,URINE NEGATIVE /HPF; BILIRUBIN,URINE NEGATIVE (NEGATIVE); CLARITY,URINE CLEAR; COLOR,URINE DARK YELLOW; GLUCOSE, URINE (UA) NEGATIVE (NEGATIVE); KETONES,URINE NEGATIVE (NEGATIVE); LEUKOCYTE ESTERASE ,URINE NEGATIVE (NEGATIVE); NITRITE,URINE NEGATIVE (NEGATIVE); PROTEIN,URINE NEGATIVE (NEGATIVE); SQUAMOUS EPITHELIAL CELL,UR 0-2 /HPF; WBC,URINE 0-2 /HPF
--- NOTE | 2020-10-25 11:11 | Diagnostic Imaging Report ---
PROCEDURE: CT abdomen and pelvis without contrast. TECHNIQUE: Multiple contiguous axial images were obtained through the abdomen and pelvis without the use of intravenous contrast. Auto Exposure Controls were utilized during the CT exam to meet ALARA standards for radiation dose reduction. INDICATION: Possible left kidney stone. Left-sided flank pain. COMPARISON: CTA chest on 09/14/2019. FINDINGS: The heart is unremarkable. The lung bases are clear. The right kidney is absent. The left kidney demonstrates compensatory hypertrophy. There is prominence of the renal pelvis and calyces. No obstructing calculi are present. No perinephric fat stranding is seen. The urinary bladder is decompressed. The liver, spleen, pancreas, and adrenal glands have a normal appearance. The gallbladder is surgically absent. There is no pathologically enlarged mesenteric or retroperitoneal adenopathy. The bowel loops are nondilated. There is no free fluid or free air. No acute osseous abnormalities. There is scattered calcified aortic and iliac atherosclerotic plaque without aneurysm. There is no free air, loculated collection, or adenopathy in the pelvis. IMPRESSION: 1. Prominent left renal pelvis and calyces without evidence of perinephric fat stranding or obstructing calculi. This may represent recently passed renal stone versus congenitally prominent collecting system. The right kidney is surgically absent. Dictated by: Dictated on workstation # [id number]
[2020-10-25 11:19] LABS: ALANINE AMINOTRANSFERASE 24 U/L (0-55); ALBUMIN 4.4 GM/DL (3.2-4.5); ALKALINE PHOSPHATASE 59 U/L (40-136); BILIRUBIN,TOTAL 0.4 MG/DL (0.1-1.0); BUN/CREATININE RATIO 22; CALCIUM 9.7 MG/DL (8.5-10.1); CARBON DIOXIDE 24 MMOL/L (21-32); CHLORIDE 103 MMOL/L (98-107); CREATININE SERUM 0.97 MG/DL (0.60-1.30); GFR ESTIMATED > 60; GLUCOSE 97 MG/DL (70-105); POTASSIUM 4.3 MMOL/L (3.6-5.0); SODIUM 137 MMOL/L (135-145); TOTAL PROTEIN 7.4 GM/DL (6.4-8.2)
== END 2020-10-25 11:35 | disposition home or self-care (01) ==
LOC: EDUNIT# 10:08 → ER FS 10:10
DX: R10.9 Unspecified abdominal pain (principal); K21.9 Gastro-esophageal reflux disease without esophagitis; E78.00 Pure hypercholesterolemia, unspecified; I10 Essential (primary) hypertension; I25.2 Old myocardial infarction; F41.9 Anxiety disorder, unspecified; Z88.6 Allergy status to analgesic agent; Z88.8 Allergy status to other drugs, medicaments and biological substances; Z87.891 Personal history of nicotine dependence; Z95.5 Presence of coronary angioplasty implant and graft; Z86.73 Personal history of transient ischemic attack (TIA), and cerebral infarction without residual deficits; Z80.0 Family history of malignant neoplasm of digestive organs; Z83.3 Family history of diabetes mellitus; Z82.49 Family history of ischemic heart disease and other diseases of the circulatory system; Z79.82 Long term (current) use of aspirin; Z79.52 Long term (current) use of systemic steroids
CPT/HCPCS: 36415; 74176; 80053; 81000; 85025

== ENCOUNTER 2021-01-05 09:55 | Emergency (ER) | payer SELFPAY ==
[2021-01-05 09:59] VITALS: BP 154/126
--- NOTE | 2021-01-05 10:05 | ED Headache ---
General Chief Complaint: Head/Cervical Problems Stated Complaint: HEADACHE; FACIAL SWELLING; NAUSEA History of Present Illness Date Seen by Provider: Jan 05, 2021 Time Seen by Provider: 10:04 Initial Comments 50-year-old male presents with some left-sided facial swelling along the left gumline and into the left cheek. Reports is been going on for about a week, now he complains of headache, left temporal pain, left neck pain with some nausea. Has not been seen. Patient has very poor dentition. No vomiting. No fevers or chills. Some increased fatigue this morning. Patient is not having vision changes no other systemic complaints Allergies and Home Medications Allergies Coded Allergies: NSAIDS (Non-Steroidal Anti-Inflamma (Verified Allergy, Intermediate, KIDNEY FUNCTION, 06/19/17) droperidol (Verified Allergy, Intermediate, HYPERACTIVITY, TACHYCARDIA, 06/19/17) fentanyl (Verified Allergy, Unknown, 06/19/17) prochlorperazine (Verified Allergy, Unknown, 06/19/17) Home Medications Allopurinol 300 Mg Tablet, 300 MG PO DAILY, (Reported) Aspirin 81 Mg Tablet.dr, 81 MG PO DAILY, (Reported) Atorvastatin Calcium 40 Mg Tablet, 40 MG PO HS, (Reported) Diazepam 5 Mg Tablet, 5 MG PO PRN, (Reported) Duloxetine HCl 30 Mg Capsule.dr, 30 MG PO DAILY, (Reported) Famotidine 20 Mg Tablet, 20 MG PO BID, (Reported) Gabapentin 300 Mg Capsule, 300 MG PO TID, (Reported) Hydrocodone Bit/Acetaminophen 1 Each Tablet, 1-2 TAB PO Q4-6HR PRN for PAIN PRN PAIN Prescribed by: LIA RUSSELL on 07/01/17 1116 Hydrocodone Bit/Acetaminophen 1 Tab Tab, 1 EACH PO Q8H PRN for PAIN-SEVERE Prescribed by: TORI PRINGLE on 10/27/182024 Lipase/Protease/Amylase 1 Each Capsule.dr, 1 EACH PO TID, (Reported) Lisinopril 10 Mg Tablet, 10 MG PO DAILY, (Reported) Metoclopramide HCl 10 Mg Tablet, 10 MG PO QID, (Reported) Metoprolol Succinate 25 Mg Tab.er.24h, 25 MG PO DAILY Prescribed by: MARELY BREAUX on 09/15/19 1430 Nitroglycerin 0.4 Mg Tab.subl, 0.4 MG SL PRN, (Reported) Nitroglycerin 0.4 Mg Tab.subl, 0.4 MG SL UD PRN for CHEST PAIN Prescribed by: CLAUDETTE GARCIA on 07/02/202108 Omeprazole 20 Mg Tablet.dr, 20 MG PO DAILY, (Reported) Ondansetron HCl 4 Mg Tab, 4 MG PO PRN, (Reported) Pantoprazole Sodium 40 Mg Tablet.dr, 40 MG PO DAILY, (Reported) Prednisone 10 Mg Tab.ds.pk, 20 MG PO DAILY Take 6 tabs(60mg)daily,decrease by 1 tab(10MG)daily. Prescribed by: JOSÉ MIGUEL JIMÉNEZ on 09/16/19925 Sucralfate 1 Gm Tablet, 1 GM PO QID, (Reported) Patient Home Medication List Home Medication List Reviewed: Yes Review of Systems Review of Systems Constitutional: malaise Eyes: Denies Blurred Vision, Denies Photophobia, Denies Vision Changes Ears, Nose, Mouth, Throat: see HPI Respiratory: No cough, No short of breath Cardiovascular: No chest pain, No palpitations Gastrointestinal: No abdominal pain; nausea; No vomiting Genitourinary: no symptoms reported Musculoskeletal: no symptoms reported Skin: no symptoms reported Past Cgilluc-[id number]-Cjbvjm Hx Patient Social History Alcohol Use: Denies Use Smoking Status: Former Smoker Type Used: Cigarettes Former Smoker, Quit: Oct 18, 2012 2nd Hand Smoke Exposure: Yes Recent Hopitalizations: No Immunizations Up To Date Date of Influenza Vaccine: Apr 21, 2019 Seasonal Allergies Seasonal Allergies: Yes Past Medical History Surgeries: Yes (RIGHT NEPHRECTOMY, LEFT KNEE SCOPE, R WRIST) Appendectomy, Coronary Stent, Gallbladder, Nephrectomy Respiratory: Yes Sleep Apnea Currently Using CPAP: Yes Cardiac: Yes (STENTS X 2) Coronary Artery Disease, Heart Attack, High Cholesterol, Hypertension Neurological: Yes (TIA X2 LAST ONE 2011) TIA Reproductive Disorders: No Sexually Transmitted Disease: Yes HIV/AIDS: No Genitourinary: Yes (one kidney removed) Kidney Stones Gastrointestinal: Yes Gastroesophageal Reflux, Esophagitis Musculoskeletal: No Endocrine: Yes Hyperthyroidism Loss of Vision: Bilateral Hearing Impairment: Denies Cancer: No Psychosocial: Yes Anxiety Integumentary: No Blood Disorders: No Adverse Reaction/Blood Tranf: No (N/A) Family Medical History Cardiovascular disease 19 FATHER Colon cancer 19 FATHER Diabetes mellitus 19 FATHER 19 MOTHER G8 BROTHER Hypertension 19 FATHER 19 MOTHER G8 BROTHER Myocardial infarction 19 FATHER 19 MOTHER No Pertinent Family Hx Physical Exam Vital Signs Capillary Refill : Height, Weight, BMI Height: 5'9.00" Weight: 173lbs. 0oz. [id number]; 29.00 BMI Method:Stated General Appearance: no apparent distress HEENT: other (Significant cavities left side with gum edema but no abscess noted, very tender to palpation) Neck: full range of motion, supple, lymphadenopathy (L) Cardiovascular: normal peripheral pulses, regular rate, rhythm Respiratory: lungs clear, normal breath sounds Gastrointestinal: non tender, soft Extremities: normal range of motion, non-tender Psychiatric: alert, oriented x 3 Crainal Nerves: normal hearing, normal speech, PERRL Coordination/Gait: normal gait Motor/Sensory: no motor deficit Skin: normal color, warm/dry Departure Impression Primary Impression: Infected dental caries Disposition: HOME, SELF-CARE Condition: Stable Departure-Patient Inst. Referrals: CAREY CARRANZA APRN (PCP) Primary Care Physician [facility] (Family) Primary Care Physician Patient Instructions: Dental Pain (DC), Tooth Decay, Adult Add. Discharge Instructions: Follow-up with your primary care provider and dentist next week for recheck of today's symptoms Tylenol or ibuprofen as needed for pain Topical dental pain relievers as directed on package All discharge instructions reviewed with patient and/or family. Voiced understanding. Scripts Amoxicillin (Amoxicillin) 500 Mg Capsule 500 MG PO TID, #21 CAP 0 Refills Prov: GHASSAN CHURCHILL DO 01/05/21 GHASSAN CHURCHILL DO Jan 05, 2021 10:05
[2021-01-05] MEDS ORDERED: AMOX500C2 PO (10:10)
[2021-01-05] MEDS ORDERED: LIDOCAINE 1% INJ 20 ML 20 ML VIAL INJ ONE (10:15)
[2021-01-05] MEDS ORDERED: cefTRIAXone 1,000 MG VIAL IM ONE (10:15)
== END 2021-01-05 10:27 | disposition home or self-care (01) ==
LOC: EDUNIT# 09:55 → ER FS 09:57
DX: K02.9 Dental caries, unspecified (principal); I10 Essential (primary) hypertension; I25.2 Old myocardial infarction; I25.10 Atherosclerotic heart disease of native coronary artery without angina pectoris; E78.00 Pure hypercholesterolemia, unspecified; K21.9 Gastro-esophageal reflux disease without esophagitis; F41.9 Anxiety disorder, unspecified; Z86.73 Personal history of transient ischemic attack (TIA), and cerebral infarction without residual deficits; Z87.891 Personal history of nicotine dependence; Z79.52 Long term (current) use of systemic steroids; Z79.82 Long term (current) use of aspirin; Z79.899 Other long term (current) drug therapy
CPT/HCPCS: 99284